=== PATIENT | female | born 1950 | race Asian ===

== ENCOUNTER 2017-07-12 13:33 | Inpatient (IN) | payer MEDICARE, MEDICAID, OTHER ==
[2017-07-12 15:26] LABS: ADD MAN DIFF? NO
[2017-07-12 15:30] LABS: WHITE BLOOD COUNT 17.6 10^3/ul (4.8-10.8)
[2017-07-12 15:30] LABS: ABNORMAL IP MESSAGE 1; BASOPHILS % 0.2 % (0.0-2.0); EOSINOPHILS # 0.1 10^3/ul (0.0-0.5); EOSINOPHILS % 0.5 % (0.0-7.0); HEMATOCRIT 37.3 % (37.0-47.0); HEMOGLOBIN 12.4 g/dl (12.0-16.0); LYMPHOCYTES # 0.7 10^3/ul (0.8-2.9); MEAN CORPUSCULAR HEMOGLOBIN 32.1 pg (29.0-33.0); MEAN CORPUSCULAR HGB CONC 33.2 g/dl (32.0-37.0); MEAN CORPUSCULAR VOLUME 96.6 fl (82.0-101.0); MEAN PLATELET VOLUME 9.7 fl (7.4-10.4); MONOCYTE # 1.6 10^3/ul (0.3-0.9); MONOCYTES % 9.1 % (0.0-11.0); NEUTROPHIL # 15.1 10^3/ul (1.6-7.5); NEUTROPHILS % 85.8 % (39.0-77.0); PLATELET COUNT 227 10^3/UL (140-415); RED BLOOD COUNT 3.86 10^6/ul (4.20-5.40); RED CELL DISTRIBUTION WIDTH 14.2 % (11.5-14.5)
[2017-07-12 15:39] LABS: POSITIVE DIFF @See below
[2017-07-12 15:50] LABS: ANION GAP 17 (8-16); BLOOD UREA NITROGEN 36 mg/dl (7-20); CALCIUM 9.5 mg/dl (8.4-10.2); CARBON DIOXIDE 34 mmol/L (21-31); CHLORIDE 90 mmol/L (97-110); CREATININE 6.31 mg/dl (0.44-1.00); GLUCOSE 121 mg/dl (70-220); SODIUM 135 mmol/L (135-144)
[2017-07-12 15:52] LABS: POTASSIUM 6.1 mmol/L (3.5-5.1)
[2017-07-12] MEDS: ALBUTEROL 0.083% (NEB) 2.5 MG/3 ML AMP HHN (15:54)
[2017-07-12 16:00] LABS: TROPONIN-I 0.024 ng/ml (0.00-0.12)
[2017-07-12] MEDS: ONDANSETRON 4 MG INJ IV (16:19)
[2017-07-12] MEDS: DEXTROSE 50% 50 ML SYRINGE IV (16:26)
[2017-07-12] MEDS: INSULIN REGULAR, HUMAN 100 UNIT/1 ML 3ML VIAL IVP (16:36)
[2017-07-12 17:47] LABS: ANION GAP 21 (8-16); BLOOD UREA NITROGEN 39 mg/dl (7-20); CALCIUM 9.6 mg/dl (8.4-10.2); CARBON DIOXIDE 27 mmol/L (21-31); CHLORIDE 91 mmol/L (97-110); CREATININE 6.59 mg/dl (0.44-1.00); GLUCOSE 170 mg/dl (70-220); POTASSIUM 5.9 mmol/L (3.5-5.1); SODIUM 133 mmol/L (135-144)
[2017-07-12] MEDS ORDERED: NACL 0.9% 3 ML SYG IV (23:30)
[2017-07-12] MEDS ORDERED: BISACODYL (EC) 5 MG TAB PO (23:30)
[2017-07-12] MEDS ORDERED: DOCUSATE SODIUM 100 MG CAP PO ×2 (23:30)
[2017-07-12] MEDS ORDERED: ACETAMINOPHEN 325 MG TAB PO (23:30)
[2017-07-13] MEDS: NA POLYST SULFON 15 GM/60 ML BTL PO ×2 (00:24→05:43)
[2017-07-13] MEDS: ONDANSETRON 4 MG INJ IV (00:51)
[2017-07-13] MEDS: ALBUTEROL 0.083% (NEB) 2.5 MG/3 ML AMP HHN ×4 (01:34→19:17)
[2017-07-13 02:46] LABS: HEPATITIS B SURFACE ANTIGEN NEGATIVE (NEGATIVE)
[2017-07-13] MEDS: PANTOPRAZOLE (EC) 40 MG TAB PO ×2 (05:43→18:00)
[2017-07-13 07:38] LABS: ANION GAP 18 (8-16); BLOOD UREA NITROGEN 51 mg/dl (7-20); CALCIUM 9.8 mg/dl (8.4-10.2); CARBON DIOXIDE 32 mmol/L (21-31); CHLORIDE 90 mmol/L (97-110); CREATININE 8.82 mg/dl (0.44-1.00); GLUCOSE 135 mg/dl (70-220); POTASSIUM 5.4 mmol/L (3.5-5.1); SODIUM 135 mmol/L (135-144)
[2017-07-13] MEDS: FOLIC ACID 1 MG TAB PO (09:00)
[2017-07-13] MEDS: METOPROLOL (XL) 25 MG TAB PO (09:00)
[2017-07-13] MEDS: CALCIUM ACETATE 667 MG CAP PO ×3 (09:00→21:02)
[2017-07-13] MEDS: ASPIRIN (EC) 81 MG TAB PO (09:00)
[2017-07-13] MEDS: FAMOTIDINE 20 MG TAB PO (09:00)
[2017-07-13] MEDS: LORATADINE 10 MG TAB PO (09:00)
[2017-07-13] MEDS: AZITHROMYCIN 250 MG in SOD CHLORIDE 0.9% 250 ML IVPB (15:19)
[2017-07-13 16:23] LABS: LIPASE 275 U/L (23-300)
[2017-07-13 16:24] LABS: ALANINE AMINOTRANSFERASE 22 IU/L (13-69); ALBUMIN 4.3 g/dl (3.3-4.9); ALKALINE PHOSPHATASE 121 IU/L (42-121); ASPARTATE AMINO TRANSFERASE 32 IU/L (15-46); BILIRUBIN,INDIRECT 0.3 mg/dl (0-1.1); BILIRUBIN,TOTAL 0.3 mg/dl (0.2-1.3); TOTAL PROTEIN 8.4 g/dl (6.1-8.1)
[2017-07-13] MEDS: ACCU-CHEK XX (18:00)
[2017-07-13] MEDS: INSULIN DETEMIR [LEVEMIR] 3ML CART SC (21:01)
[2017-07-13] MEDS: ACETAMINOPHEN 325 MG TAB PO (21:02)
[2017-07-14] MEDS: ACCU-CHEK XX ×5 (00:53→17:35)
[2017-07-14] MEDS: ALBUTEROL 0.083% (NEB) 2.5 MG/3 ML AMP HHN ×4 (01:22→19:35)
[2017-07-14] MEDS: PANTOPRAZOLE (EC) 40 MG TAB PO ×2 (06:45→17:34)
[2017-07-14 06:52] LABS: ADD MAN DIFF? NO
[2017-07-14 07:13] LABS: WHITE BLOOD COUNT 12.9 10^3/ul (4.8-10.8)
[2017-07-14 07:13] LABS: ABNORMAL IP MESSAGE 1; BASOPHILS % 0.2 % (0.0-2.0); EOSINOPHILS # 0.1 10^3/ul (0.0-0.5); EOSINOPHILS % 0.5 % (0.0-7.0); HEMOGLOBIN 11.8 g/dl (12.0-16.0); LYMPHOCYTES # 0.9 10^3/ul (0.8-2.9); LYMPHOCYTES % 7.2 % (15.0-51.0); MEAN CORPUSCULAR HGB CONC 31.9 g/dl (32.0-37.0); MEAN CORPUSCULAR VOLUME 100.3 fl (82.0-101.0); MEAN PLATELET VOLUME 10.1 fl (7.4-10.4); MONOCYTE # 1.7 10^3/ul (0.3-0.9); MONOCYTES % 13.4 % (0.0-11.0); NEUTROPHIL # 10.1 10^3/ul (1.6-7.5); NEUTROPHILS % 78.2 % (39.0-77.0); PLATELET COUNT 202 10^3/UL (140-415); RED BLOOD COUNT 3.69 10^6/ul (4.20-5.40); RED CELL DISTRIBUTION WIDTH 14.2 % (11.5-14.5)
[2017-07-14 07:19] LABS: POSITIVE DIFF @See below
[2017-07-14 07:21] LABS: MAGNESIUM 2.1 mg/dl (1.7-2.5)
[2017-07-14 07:21] LABS: PHOSPHORUS 5.6 mg/dl (2.5-4.9)
[2017-07-14 07:39] LABS: LACTIC ACID 1.8 mmol/L (0.5-2.0)
[2017-07-14 07:45] LABS: ANION GAP 24 (8-16); BLOOD UREA NITROGEN 33 mg/dl (7-20); CALCIUM 10.3 mg/dl (8.4-10.2); CARBON DIOXIDE 32 mmol/L (21-31); CHLORIDE 97 mmol/L (97-110); CREATININE 6.77 mg/dl (0.44-1.00); GLUCOSE 127 mg/dl (70-220); POTASSIUM 5.2 mmol/L (3.5-5.1); SODIUM 148 mmol/L (135-144)
[2017-07-14] MEDS: ACETAMINOPHEN 325 MG TAB PO (08:02)
[2017-07-14] MEDS: FAMOTIDINE 20 MG TAB PO (08:03)
[2017-07-14] MEDS: CALCIUM ACETATE 667 MG CAP PO ×3 (08:03→20:40)
[2017-07-14] MEDS: FOLIC ACID 1 MG TAB PO (08:03)
[2017-07-14] MEDS: ASPIRIN (EC) 81 MG TAB PO (08:03)
[2017-07-14] MEDS: LORATADINE 10 MG TAB PO (08:03)
[2017-07-14] MEDS: METOPROLOL (XL) 25 MG TAB PO (08:05)
[2017-07-14 10:03] LABS: HEMOGLOBIN A1C 5.5 % (0-5.9)
[2017-07-14] MEDS: AZITHROMYCIN 250 MG in SOD CHLORIDE 0.9% 250 ML IVPB (14:40)
[2017-07-14] MEDS: INSULIN DETEMIR [LEVEMIR] 3ML CART SC (20:49)
[2017-07-15] MEDS: ALBUTEROL 0.083% (NEB) 2.5 MG/3 ML AMP HHN ×4 (01:44→20:00)
[2017-07-15] MEDS: ACCU-CHEK XX ×4 (06:00→17:16)
[2017-07-15] MEDS: PANTOPRAZOLE (EC) 40 MG TAB PO ×2 (06:13→17:16)
[2017-07-15] MEDS: METOPROLOL (XL) 25 MG TAB PO (08:09)
[2017-07-15] MEDS: CALCIUM ACETATE 667 MG CAP PO ×3 (08:10→21:35)
[2017-07-15] MEDS: ASPIRIN (EC) 81 MG TAB PO (08:10)
[2017-07-15] MEDS: LORATADINE 10 MG TAB PO (08:10)
[2017-07-15] MEDS: FAMOTIDINE 20 MG TAB PO (08:10)
[2017-07-15] MEDS: FOLIC ACID 1 MG TAB PO (08:10)
[2017-07-15] MEDS: AZITHROMYCIN 250 MG in SOD CHLORIDE 0.9% 250 ML IVPB (13:42)
[2017-07-15] MEDS: ACETAMINOPHEN 325 MG TAB PO (18:03)
[2017-07-15] MEDS: INSULIN DETEMIR [LEVEMIR] 3ML CART SC (21:48)
[2017-07-16] MEDS: ALBUTEROL 0.083% (NEB) 2.5 MG/3 ML AMP HHN ×4 (02:09→21:30)
[2017-07-16] MEDS: PANTOPRAZOLE (EC) 40 MG TAB PO ×2 (05:54→18:02)
[2017-07-16] MEDS: ACCU-CHEK XX ×4 (05:56→17:35)
[2017-07-16 07:19] LABS: ADD MAN DIFF? NO
[2017-07-16 07:29] LABS: ABNORMAL IP MESSAGE 1; BASOPHIL # 0.1 10^3/ul (0.0-0.1); BASOPHILS % 0.3 % (0.0-2.0); EOSINOPHILS # 0.2 10^3/ul (0.0-0.5); EOSINOPHILS % 1.2 % (0.0-7.0); HEMATOCRIT 31.4 % (37.0-47.0); HEMOGLOBIN 10.3 g/dl (12.0-16.0); LYMPHOCYTES % 6.9 % (15.0-51.0); MEAN CORPUSCULAR HEMOGLOBIN 32.2 pg (29.0-33.0); MEAN CORPUSCULAR HGB CONC 32.8 g/dl (32.0-37.0); MEAN CORPUSCULAR VOLUME 98.1 fl (82.0-101.0); MEAN PLATELET VOLUME 10.3 fl (7.4-10.4); MONOCYTES % 13.6 % (0.0-11.0); NEUTROPHIL # 11.6 10^3/ul (1.6-7.5); NEUTROPHILS % 77.4 % (39.0-77.0); PLATELET COUNT 216 10^3/UL (140-415); RED CELL DISTRIBUTION WIDTH 13.9 % (11.5-14.5)
[2017-07-16 07:38] LABS: POSITIVE DIFF @See below
[2017-07-16 07:54] LABS: ALANINE AMINOTRANSFERASE 20 IU/L (13-69); ALBUMIN 3.8 g/dl (3.3-4.9); ALBUMIN/GLOBULIN RATIO 0.84; ALKALINE PHOSPHATASE 105 IU/L (42-121); ANION GAP 20 (8-16); ASPARTATE AMINO TRANSFERASE 37 IU/L (15-46); BILIRUBIN,INDIRECT 0.1 mg/dl (0-1.1); BILIRUBIN,TOTAL 0.1 mg/dl (0.2-1.3); BLOOD UREA NITROGEN 43 mg/dl (7-20); CALCIUM 9.5 mg/dl (8.4-10.2); CARBON DIOXIDE 29 mmol/L (21-31); CHLORIDE 92 mmol/L (97-110); CREATININE 7.16 mg/dl (0.44-1.00); GLUCOSE 94 mg/dl (70-220); POTASSIUM 4.8 mmol/L (3.5-5.1); SODIUM 136 mmol/L (135-144); TOTAL PROTEIN 8.3 g/dl (6.1-8.1)
[2017-07-16] MEDS: CALCIUM ACETATE 667 MG CAP PO ×3 (09:26→21:56)
[2017-07-16] MEDS: METOPROLOL (XL) 25 MG TAB PO (09:27)
[2017-07-16] MEDS: FOLIC ACID 1 MG TAB PO (09:30)
[2017-07-16] MEDS: FAMOTIDINE 20 MG TAB PO (09:30)
[2017-07-16] MEDS: ASPIRIN (EC) 81 MG TAB PO (09:30)
[2017-07-16] MEDS: LORATADINE 10 MG TAB PO (10:34)
[2017-07-16] MEDS: AZITHROMYCIN 250 MG in SOD CHLORIDE 0.9% 250 ML IVPB (15:06)
[2017-07-16] MEDS ORDERED: VANCOMYCIN IV PER PHARMACY XX (17:00)
[2017-07-16] MEDS ORDERED: AMIKACIN IV PER PHARMACY XX (17:00)
[2017-07-16] MEDS ORDERED: SOD CHLORIDE 0.9% 1,000 ML IV (17:33)
[2017-07-16] MEDS ORDERED: SODIUM CHLORIDE 0.9% 1L BAG IV (18:00)
[2017-07-16] MEDS ORDERED: ALBUMIN HUMAN 25% 50 ML IV (18:00)
[2017-07-16] MEDS: AMIKACIN 500 MG in DEXTROSE 5% 100 ML IVPB (18:30)
[2017-07-16] MEDS: VANCOMYCIN 1.75 GM in D5W 500 ML IVPB (19:00)
[2017-07-16] MEDS: INSULIN DETEMIR [LEVEMIR] 3ML CART SC (21:48)
[2017-07-17] MEDS: ALBUTEROL 0.083% (NEB) 2.5 MG/3 ML AMP HHN ×4 (03:31→20:17)
[2017-07-17] MEDS: PANTOPRAZOLE (EC) 40 MG TAB PO ×2 (05:33→18:00)
[2017-07-17] MEDS: ACCU-CHEK XX ×4 (08:10→18:00)
[2017-07-17 08:54] LABS: ADD MAN DIFF? NO
[2017-07-17] MEDS: LORATADINE 10 MG TAB PO (08:57)
[2017-07-17] MEDS: FOLIC ACID 1 MG TAB PO (08:57)
[2017-07-17] MEDS: METOPROLOL (XL) 25 MG TAB PO ×2 (08:57→09:00)
[2017-07-17] MEDS: CALCIUM ACETATE 667 MG CAP PO ×3 (08:57→21:45)
[2017-07-17] MEDS: ASPIRIN (EC) 81 MG TAB PO (08:57)
[2017-07-17] MEDS: FAMOTIDINE 20 MG TAB PO (08:57)
[2017-07-17 09:16] LABS: ABNORMAL IP MESSAGE 1; BASOPHILS % 0.3 % (0.0-2.0); EOSINOPHILS # 0.4 10^3/ul (0.0-0.5); HEMATOCRIT 32.6 % (37.0-47.0); HEMOGLOBIN 10.4 g/dl (12.0-16.0); LYMPHOCYTES # 1.3 10^3/ul (0.8-2.9); LYMPHOCYTES % 10.9 % (15.0-51.0); MEAN CORPUSCULAR HEMOGLOBIN 31.2 pg (29.0-33.0); MEAN CORPUSCULAR HGB CONC 31.9 g/dl (32.0-37.0); MEAN CORPUSCULAR VOLUME 97.9 fl (82.0-101.0); MEAN PLATELET VOLUME 10.2 fl (7.4-10.4); MONOCYTE # 1.7 10^3/ul (0.3-0.9); MONOCYTES % 14.4 % (0.0-11.0); NEUTROPHIL # 8.5 10^3/ul (1.6-7.5); NEUTROPHILS % 70.9 % (39.0-77.0); NUCLEATED RED BLOOD CELLS # 0.1 10^3/ul (0.0-0.0); PLATELET COUNT 211 10^3/UL (140-415); RED BLOOD COUNT 3.33 10^6/ul (4.20-5.40); RED CELL DISTRIBUTION WIDTH 13.7 % (11.5-14.5)
[2017-07-17 09:21] LABS: POSITIVE DIFF @See below
[2017-07-17 12:41] LABS: ANION GAP 21 (8-16); BLOOD UREA NITROGEN 68 mg/dl (7-20); CALCIUM 9.2 mg/dl (8.4-10.2); CARBON DIOXIDE 25 mmol/L (21-31); CHLORIDE 88 mmol/L (97-110); CREATININE 9.44 mg/dl (0.44-1.00); GLUCOSE 135 mg/dl (70-220); MAGNESIUM 1.8 mg/dl (1.7-2.5); POTASSIUM 5.2 mmol/L (3.5-5.1); SODIUM 129 mmol/L (135-144)
[2017-07-17 12:41] LABS: PHOSPHORUS 4.3 mg/dl (2.5-4.9)
[2017-07-17] MEDS: AZITHROMYCIN 250 MG in SOD CHLORIDE 0.9% 250 ML IVPB (16:01)
[2017-07-17] MEDS: AMIKACIN 350 MG in DEXTROSE 5% 100 ML IVPB (18:58)
[2017-07-17] MEDS: INSULIN DETEMIR [LEVEMIR] 3ML CART SC (20:56)
[2017-07-18] MEDS: ALBUTEROL 0.083% (NEB) 2.5 MG/3 ML AMP HHN ×4 (02:15→19:20)
[2017-07-18] MEDS: ACCU-CHEK XX ×5 (06:00→23:42)
[2017-07-18] MEDS: PANTOPRAZOLE (EC) 40 MG TAB PO ×2 (06:09→17:54)
[2017-07-18 08:12] LABS: ADD MAN DIFF? NO
[2017-07-18 08:14] LABS: WHITE BLOOD COUNT 10.3 10^3/ul (4.8-10.8)
[2017-07-18 08:14] LABS: ABNORMAL IP MESSAGE 1; BASOPHIL # 0.1 10^3/ul (0.0-0.1); BASOPHILS % 0.5 % (0.0-2.0); EOSINOPHILS # 0.4 10^3/ul (0.0-0.5); EOSINOPHILS % 4.1 % (0.0-7.0); HEMATOCRIT 33.8 % (37.0-47.0); HEMOGLOBIN 10.7 g/dl (12.0-16.0); LYMPHOCYTES % 9.4 % (15.0-51.0); MEAN CORPUSCULAR HEMOGLOBIN 31.4 pg (29.0-33.0); MEAN CORPUSCULAR HGB CONC 31.7 g/dl (32.0-37.0); MEAN CORPUSCULAR VOLUME 99.1 fl (82.0-101.0); MEAN PLATELET VOLUME 9.9 fl (7.4-10.4); MONOCYTE # 1.6 10^3/ul (0.3-0.9); MONOCYTES % 15.8 % (0.0-11.0); NEUTROPHIL # 7.2 10^3/ul (1.6-7.5); NEUTROPHILS % 69.6 % (39.0-77.0); PLATELET COUNT 259 10^3/UL (140-415); RED BLOOD COUNT 3.41 10^6/ul (4.20-5.40); RED CELL DISTRIBUTION WIDTH 13.8 % (11.5-14.5)
[2017-07-18 08:25] LABS: POSITIVE DIFF @See below
[2017-07-18 08:45] LABS: ANION GAP 19 (8-16); BLOOD UREA NITROGEN 47 mg/dl (7-20); CALCIUM 9.2 mg/dl (8.4-10.2); CARBON DIOXIDE 31 mmol/L (21-31); CHLORIDE 94 mmol/L (97-110); GLUCOSE 85 mg/dl (70-220); POTASSIUM 5.2 mmol/L (3.5-5.1); SODIUM 139 mmol/L (135-144)
[2017-07-18 08:49] LABS: VANCOMYCIN,RANDOM 15.3 ug/ml
[2017-07-18] MEDS: METOPROLOL (XL) 25 MG TAB PO (09:10)
[2017-07-18] MEDS: CALCIUM ACETATE 667 MG CAP PO ×3 (09:10→17:55)
[2017-07-18] MEDS: FAMOTIDINE 20 MG TAB PO (09:10)
[2017-07-18] MEDS: ASPIRIN (EC) 81 MG TAB PO (09:10)
[2017-07-18] MEDS: LORATADINE 10 MG TAB PO (09:10)
[2017-07-18] MEDS: FOLIC ACID 1 MG TAB PO (09:11)
[2017-07-18] MEDS: NA POLYST SULFON 15 GM/60 ML BTL PO (11:42)
[2017-07-18] MEDS ORDERED: GLUCOSE GEL 15 GRAM TUBE BUCCAL (12:30)
[2017-07-18] MEDS ORDERED: GLUCAGON 1 MG INJ IM (12:30)
[2017-07-18] MEDS ORDERED: GLUCOSE GEL 15 GRAM TUBE PO ×2 (12:30)
[2017-07-18] MEDS ORDERED: DEXTROSE 50% 50 ML SYRINGE IV ×2 (12:30)
[2017-07-18] MEDS: VANCOMYCIN 1 GM 250 ML IVPB (17:54)
[2017-07-18] MEDS ORDERED: SODIUM CHLORIDE 0.9% 1L BAG IV (18:00)
[2017-07-18] MEDS ORDERED: ALBUMIN HUMAN 25% 50 ML IV (18:00)
[2017-07-18] MEDS: INSULIN DETEMIR [LEVEMIR] 3ML CART SC (21:15)
[2017-07-19] MEDS: ALBUTEROL 0.083% (NEB) 2.5 MG/3 ML AMP HHN ×3 (01:58→13:24)
[2017-07-19] MEDS: PANTOPRAZOLE (EC) 40 MG TAB PO (06:10)
[2017-07-19] MEDS: ACCU-CHEK XX ×2 (06:13→12:13)
[2017-07-19 07:48] LABS: ADD MAN DIFF? NO
[2017-07-19 07:52] LABS: BASOPHIL # 0.1 10^3/ul (0.0-0.1); BASOPHILS % 0.8 % (0.0-2.0); EOSINOPHILS # 0.5 10^3/ul (0.0-0.5); EOSINOPHILS % 6.9 % (0.0-7.0); HEMATOCRIT 33.5 % (37.0-47.0); HEMOGLOBIN 10.9 g/dl (12.0-16.0); LYMPHOCYTES # 1.1 10^3/ul (0.8-2.9); LYMPHOCYTES % 14.6 % (15.0-51.0); MEAN CORPUSCULAR HEMOGLOBIN 32.2 pg (29.0-33.0); MEAN CORPUSCULAR HGB CONC 32.5 g/dl (32.0-37.0); MEAN CORPUSCULAR VOLUME 98.8 fl (82.0-101.0); MEAN PLATELET VOLUME 10.8 fl (7.4-10.4); MONOCYTE # 1.2 10^3/ul (0.3-0.9); MONOCYTES % 15.8 % (0.0-11.0); NEUTROPHIL # 4.5 10^3/ul (1.6-7.5); NEUTROPHILS % 61.4 % (39.0-77.0); NUCLEATED RED BLOOD CELLS% 0.4 /100WBC (0.0-0.0); RED BLOOD COUNT 3.39 10^6/ul (4.20-5.40); RED CELL DISTRIBUTION WIDTH 13.7 % (11.5-14.5)
[2017-07-19 07:52] LABS: WHITE BLOOD COUNT 7.4 10^3/ul (4.8-10.8)
[2017-07-19 07:59] LABS: PLATELET COUNT 193 10^3/UL (140-415); POSITIVE DIFF @See below
[2017-07-19 08:09] LABS: ANION GAP 21 (8-16); BLOOD UREA NITROGEN 67 mg/dl (7-20); CALCIUM 9.2 mg/dl (8.4-10.2); CARBON DIOXIDE 26 mmol/L (21-31); CHLORIDE 93 mmol/L (97-110); GLUCOSE 76 mg/dl (70-220); POTASSIUM 4.9 mmol/L (3.5-5.1); SODIUM 135 mmol/L (135-144)
[2017-07-19] MEDS: FAMOTIDINE 20 MG TAB PO (08:23)
[2017-07-19] MEDS: LORATADINE 10 MG TAB PO (08:23)
[2017-07-19] MEDS: FOLIC ACID 1 MG TAB PO (08:23)
[2017-07-19] MEDS: ASPIRIN (EC) 81 MG TAB PO (08:23)
[2017-07-19] MEDS: METOPROLOL (XL) 25 MG TAB PO (08:23)
[2017-07-19] MEDS: CALCIUM ACETATE 667 MG CAP PO ×2 (08:28→12:13)
[2017-07-19 14:04] LABS: PHOSPHORUS 5.2 mg/dl (2.5-4.9)
[2017-07-19 14:04] LABS: MAGNESIUM 2.2 mg/dl (1.7-2.5)
[2017-07-19] MEDS: AMIKACIN 350 MG in DEXTROSE 5% 100 ML IVPB (15:22)
== END 2017-07-19 17:30 | disposition home or self-care (01) | DRG 640 ==
LOC: TEL 22:26 → E/R 13:33 → TEL 18:05
PROC: 5A1D70Z Performance of Urinary Filtration, Intermittent, Less than 6 Hours Per Day (ICD-10-PCS; principal; 2017-07-13)
DX: E87.5 Hyperkalemia (principal); N18.6 End stage renal disease; J18.9 Pneumonia, unspecified organism; I12.0 Hypertensive chronic kidney disease with stage 5 chronic kidney disease or end stage renal disease; R65.10 Systemic inflammatory response syndrome (SIRS) of non-infectious origin without acute organ dysfunction; E11.22 Type 2 diabetes mellitus with diabetic chronic kidney disease; J21.9 Acute bronchiolitis, unspecified; Z99.2 Dependence on renal dialysis; Z95.0 Presence of cardiac pacemaker
CPT/HCPCS: 36415; 71045; 74176; 80048; 80053; 80076; 80202; 82962; 83036; 83605; 83690; 83735; 84100; 84484; 85025; 87040; 87340; 90935; 93005; 94640; 94644; 94664; 96374; 96375; 99285-25

== ENCOUNTER 2017-08-28 11:57 | Emergency (ER) | payer MEDICARE, MEDICAID | END 2017-08-28 12:26 | disposition home or self-care (01) | LOC: E/R 11:57 | DX: T82.838A Hemorrhage due to vascular prosthetic devices, implants and grafts, initial encounter (principal); N18.6 End stage renal disease; I12.0 Hypertensive chronic kidney disease with stage 5 chronic kidney disease or end stage renal disease; Y82.8 Other medical devices associated with adverse incidents; Z99.2 Dependence on renal dialysis; Z79.4 Long term (current) use of insulin; Z79.82 Long term (current) use of aspirin | CPT/HCPCS: 99282 ==

== ENCOUNTER 2017-09-02 02:09 | Emergency (ER) | payer MEDICARE, MEDICAID ==
[2017-09-02 05:25] LABS: ADD MAN DIFF? NO
[2017-09-02 05:26] LABS: BASOPHILS % 0.3 % (0.0-2.0); EOSINOPHILS # 0.1 10^3/ul (0.0-0.5); EOSINOPHILS % 0.6 % (0.0-7.0); HEMATOCRIT 39.3 % (37.0-47.0); HEMOGLOBIN 12.5 g/dl (12.0-16.0); LYMPHOCYTES # 1.5 10^3/ul (0.8-2.9); LYMPHOCYTES % 16.2 % (15.0-51.0); MEAN CORPUSCULAR HEMOGLOBIN 32.2 pg (29.0-33.0); MEAN CORPUSCULAR HGB CONC 31.8 g/dl (32.0-37.0); MEAN CORPUSCULAR VOLUME 101.3 fl (82.0-101.0); MEAN PLATELET VOLUME 10.4 fl (7.4-10.4); MONOCYTE # 0.9 10^3/ul (0.3-0.9); MONOCYTES % 9.9 % (0.0-11.0); NEUTROPHIL # 6.9 10^3/ul (1.6-7.5); NEUTROPHILS % 72.7 % (39.0-77.0); PLATELET COUNT 211 10^3/UL (140-415); RED BLOOD COUNT 3.88 10^6/ul (4.20-5.40); RED CELL DISTRIBUTION WIDTH 14.1 % (11.5-14.5)
[2017-09-02 05:26] LABS: WHITE BLOOD COUNT 9.5 10^3/ul (4.8-10.8)
[2017-09-02 07:03] LABS: ANION GAP 24 (8-16); BLOOD UREA NITROGEN 61 mg/dl (7-20); CALCIUM 10.2 mg/dl (8.4-10.2); CARBON DIOXIDE 31 mmol/L (21-31); CHLORIDE 92 mmol/L (97-110); CREATININE 8.08 mg/dl (0.44-1.00); POTASSIUM 5.1 mmol/L (3.5-5.1); SODIUM 142 mmol/L (135-144)
[2017-09-02 07:14] LABS: TROPONIN-I 0.036 ng/ml (0.00-0.12)
[2017-09-02 07:27] LABS: GLUCOSE 48 mg/dl (70-220)
[2017-09-02] MEDS: DEXTROSE 50% 50 ML SYRINGE IV (07:41)
== END 2017-09-02 08:31 | disposition home or self-care (01) ==
LOC: E/R 02:09
DX: R42 Dizziness and giddiness (principal); E11.649 Type 2 diabetes mellitus with hypoglycemia without coma; E11.22 Type 2 diabetes mellitus with diabetic chronic kidney disease; N18.6 End stage renal disease; D75.89 Other specified diseases of blood and blood-forming organs; I12.0 Hypertensive chronic kidney disease with stage 5 chronic kidney disease or end stage renal disease; Z79.4 Long term (current) use of insulin; Z79.82 Long term (current) use of aspirin; Z95.0 Presence of cardiac pacemaker
CPT/HCPCS: 36415; 71045; 80048; 82962; 84484; 85025; 93005; 99285-25

== ENCOUNTER 2017-09-03 09:32 | Inpatient (IN) | payer MEDICARE, OTHER, MEDICAID ==
[2017-09-03] MEDS ORDERED: DEXTROSE 50% 50 ML SYRINGE (09:37)
[2017-09-03 10:25] LABS: ADD MAN DIFF? NO
[2017-09-03 10:27] LABS: BASOPHILS % 0.4 % (0.0-2.0); EOSINOPHILS # 0.3 10^3/ul (0.0-0.5); EOSINOPHILS % 5.6 % (0.0-7.0); HEMATOCRIT 34.6 % (37.0-47.0); LYMPHOCYTES # 0.9 10^3/ul (0.8-2.9); LYMPHOCYTES % 18.9 % (15.0-51.0); MEAN CORPUSCULAR HEMOGLOBIN 31.9 pg (29.0-33.0); MEAN CORPUSCULAR HGB CONC 31.8 g/dl (32.0-37.0); MEAN CORPUSCULAR VOLUME 100.3 fl (82.0-101.0); MEAN PLATELET VOLUME 9.8 fl (7.4-10.4); MONOCYTE # 0.7 10^3/ul (0.3-0.9); MONOCYTES % 14.3 % (0.0-11.0); NEUTROPHILS % 60.6 % (39.0-77.0); PLATELET COUNT 197 10^3/UL (140-415); RED BLOOD COUNT 3.45 10^6/ul (4.20-5.40); RED CELL DISTRIBUTION WIDTH 14.2 % (11.5-14.5)
[2017-09-03 10:43] LABS: ANION GAP 21 (8-16); BLOOD UREA NITROGEN 80 mg/dl (7-20); CALCIUM 9.3 mg/dl (8.4-10.2); CARBON DIOXIDE 28 mmol/L (21-31); CHLORIDE 94 mmol/L (97-110); CREATININE 10.44 mg/dl (0.44-1.00); POTASSIUM 4.5 mmol/L (3.5-5.1); SODIUM 138 mmol/L (135-144)
[2017-09-03 10:45] LABS: GLUCOSE 26 mg/dl (70-220)
[2017-09-03] MEDS: DEXTROSE 50% 50 ML SYRINGE IV ×2 (10:46→14:14)
[2017-09-03] MEDS: DEXTROSE 10% 1,000 ML IV (11:05)
[2017-09-03] MEDS ORDERED: ALBUTEROL/IPRATROPIUM (NEB) 3 ML AMP NEB (12:00)
[2017-09-03] MEDS ORDERED: HYDROCODONE/APAP (5/325) TAB PO (12:00)
[2017-09-03] MEDS ORDERED: ACETAMINOPHEN 650MG/20.3ML CUP PO (12:00)
[2017-09-03] MEDS ORDERED: DOCUSATE SODIUM 100 MG CAP PO (12:00)
[2017-09-03] MEDS ORDERED: NACL 0.9% 3 ML SYG IV (12:00)
[2017-09-03] MEDS ORDERED: ONDANSETRON 4 MG INJ IV (12:00)
[2017-09-03 12:20] LABS: ALANINE AMINOTRANSFERASE 19 IU/L (13-69); ALBUMIN 3.9 g/dl (3.3-4.9); ALKALINE PHOSPHATASE 270 IU/L (42-121); ASPARTATE AMINO TRANSFERASE 35 IU/L (15-46)
[2017-09-03] MEDS: DEXTROSE 10%/0.2% NACL 1,000 ML IV (14:15)
[2017-09-03] MEDS: GLUCAGON 1 MG INJ IV (15:00)
[2017-09-03] MEDS: METHYLPREDNISOLONE 40 MG INJ IV (15:05)
[2017-09-03] MEDS: CALCIUM ACETATE 667 MG CAP PO (20:22)
[2017-09-03] MEDS: PANTOPRAZOLE (EC) 40 MG TAB PO (20:22)
[2017-09-03] MEDS: HEPARIN 5,000 UNIT/0.5 ML VIAL SC (20:23)
[2017-09-04] MEDS: DEXTROSE 5% 1,000 ML IV ×2 (00:52→00:55)
[2017-09-04] MEDS ORDERED: PANTOPRAZOLE 40 MG INJ IV (06:00)
[2017-09-04 06:06] LABS: ALANINE AMINOTRANSFERASE 18 IU/L (13-69); ALBUMIN 3.7 g/dl (3.3-4.9); ALBUMIN/GLOBULIN RATIO 0.94; ALKALINE PHOSPHATASE 189 IU/L (42-121); ANION GAP 22 (8-16); ASPARTATE AMINO TRANSFERASE 31 IU/L (15-46); BLOOD UREA NITROGEN 94 mg/dl (7-20); CALCIUM 9.4 mg/dl (8.4-10.2); CARBON DIOXIDE 22 mmol/L (21-31); CHLORIDE 92 mmol/L (97-110); CHOL/HDL RATIO 3.2 RATIO; CHOLESTEROL 141 mg/dl (100-200); CREATININE 11.83 mg/dl (0.44-1.00); GLUCOSE 163 mg/dl (70-220); HDL CHOLESTEROL 43 mg/dl (35-98); LDL CHOLESTEROL,CALCULATED 70 mg/dl; MAGNESIUM 2.3 mg/dl (1.7-2.5); SODIUM 129 mmol/L (135-144); TOTAL PROTEIN 7.6 g/dl (6.1-8.1); TRIGLYCERIDES 141 mg/dl (0-149)
[2017-09-04 06:08] LABS: POTASSIUM 6.5 mmol/L (3.5-5.1)
[2017-09-04 06:34] LABS: THYROID STIMULATING HORMONE 0.265 MIU/L (0.465-4.680)
[2017-09-04] MEDS: NA POLYST SULFON 15 GM/60 ML BTL PO (07:43)
[2017-09-04 08:06] LABS: FREE T4 (FREE THYROXINE) 1.16 ng/dl (0.78-2.44)
[2017-09-04] MEDS ORDERED: METOPROLOL (XL) 25 MG TAB PO (09:00)
[2017-09-04] MEDS: PANTOPRAZOLE (EC) 40 MG TAB PO ×2 (09:43→20:22)
[2017-09-04] MEDS: ASPIRIN (EC) 81 MG TAB PO (09:43)
[2017-09-04] MEDS: CALCIUM ACETATE 667 MG CAP PO ×3 (09:43→20:22)
[2017-09-04] MEDS: HEPARIN 5,000 UNIT/0.5 ML VIAL SC ×2 (09:48→20:24)
[2017-09-04 11:46] LABS: HEPATITIS B SURFACE ANTIBODY POSITIVE (NEGATIVE)
[2017-09-04 12:54] LABS: HEPATITIS B SURFACE ANTIGEN NEGATIVE (NEGATIVE)
[2017-09-04] MEDS ORDERED: DEXTROSE 50% 50 ML SYRINGE IV ×2 (14:00)
[2017-09-04] MEDS ORDERED: GLUCOSE GEL 15 GRAM TUBE BUCCAL (14:00)
[2017-09-04] MEDS ORDERED: GLUCOSE GEL 15 GRAM TUBE PO ×2 (14:00)
[2017-09-04] MEDS ORDERED: GLUCAGON 1 MG INJ IM (14:00)
[2017-09-04] MEDS: LINAGLIPTIN 5 MG TABLET PO (16:11)
[2017-09-04] MEDS: ACCU-CHEK XX ×2 (17:58→19:50)
[2017-09-04] MEDS: DIPHENHYDRAMINE 50 MG INJ IV (18:59)
[2017-09-04] MEDS ORDERED: DIPHENHYDRAMINE 50 MG INJ IM (19:00)
[2017-09-05 05:16] LABS: ADD MAN DIFF? NO
[2017-09-05 05:25] LABS: BASOPHILS % 0.7 % (0.0-2.0); EOSINOPHILS # 0.1 10^3/ul (0.0-0.5); HEMATOCRIT 32.8 % (37.0-47.0); HEMOGLOBIN 10.5 g/dl (12.0-16.0); LYMPHOCYTES # 1.5 10^3/ul (0.8-2.9); LYMPHOCYTES % 27.9 % (15.0-51.0); MEAN CORPUSCULAR HEMOGLOBIN 31.3 pg (29.0-33.0); MEAN CORPUSCULAR VOLUME 97.6 fl (82.0-101.0); MEAN PLATELET VOLUME 9.9 fl (7.4-10.4); MONOCYTE # 0.9 10^3/ul (0.3-0.9); MONOCYTES % 15.8 % (0.0-11.0); NEUTROPHIL # 2.9 10^3/ul (1.6-7.5); NEUTROPHILS % 53.2 % (39.0-77.0); PLATELET COUNT 204 10^3/UL (140-415); RED BLOOD COUNT 3.36 10^6/ul (4.20-5.40); RED CELL DISTRIBUTION WIDTH 13.7 % (11.5-14.5)
[2017-09-05 05:25] LABS: WHITE BLOOD COUNT 5.5 10^3/ul (4.8-10.8)
[2017-09-05 05:48] LABS: ANION GAP 18 (8-16); BLOOD UREA NITROGEN 72 mg/dl (7-20); CALCIUM 9.3 mg/dl (8.4-10.2); CARBON DIOXIDE 29 mmol/L (21-31); CHLORIDE 93 mmol/L (97-110); CREATININE 9.76 mg/dl (0.44-1.00); GLUCOSE 90 mg/dl (70-220); POTASSIUM 5.1 mmol/L (3.5-5.1); SODIUM 135 mmol/L (135-144)
[2017-09-05 06:15] LABS: PHOSPHORUS 4.1 mg/dl (2.5-4.9)
[2017-09-05 06:15] LABS: MAGNESIUM 2.2 mg/dl (1.7-2.5)
[2017-09-05] MEDS: ACCU-CHEK XX ×4 (07:56→14:05)
[2017-09-05] MEDS: CALCIUM ACETATE 667 MG CAP PO ×2 (07:57→12:12)
[2017-09-05] MEDS: ASPIRIN (EC) 81 MG TAB PO (07:58)
[2017-09-05] MEDS: PANTOPRAZOLE (EC) 40 MG TAB PO (07:58)
[2017-09-05] MEDS: LINAGLIPTIN 5 MG TABLET PO (07:58)
[2017-09-05] MEDS: HEPARIN 5,000 UNIT/0.5 ML VIAL SC (08:01)
== END 2017-09-05 16:00 | disposition home or self-care (01) | DRG 638 ==
LOC: MS2 09-04 16:30 → E/R 09:32 → ICU 11:43
PROVIDERS: Internal Medicine
DX: E11.649 Type 2 diabetes mellitus with hypoglycemia without coma (principal); I13.2 Hypertensive heart and chronic kidney disease with heart failure and with stage 5 chronic kidney disease, or end stage renal disease; E11.22 Type 2 diabetes mellitus with diabetic chronic kidney disease; N18.6 End stage renal disease; E78.00 Pure hypercholesterolemia, unspecified; I50.9 Heart failure, unspecified; I25.10 Atherosclerotic heart disease of native coronary artery without angina pectoris; E11.40 Type 2 diabetes mellitus with diabetic neuropathy, unspecified; E11.21 Type 2 diabetes mellitus with diabetic nephropathy; E11.319 Type 2 diabetes mellitus with unspecified diabetic retinopathy without macular edema; E87.5 Hyperkalemia; Z95.0 Presence of cardiac pacemaker; Z99.2 Dependence on renal dialysis; Z79.82 Long term (current) use of aspirin; Z79.4 Long term (current) use of insulin
CPT/HCPCS: 80048; 80053; 80061; 80076; 82533; 82962; 83735; 84100; 84439; 84443; 85025; 86706; 87081; 87340; 90935

== ENCOUNTER 2017-11-03 04:12 | Observation (INO) | payer MEDICARE, OTHER ==
[2017-11-03 06:03] LABS: ADD MAN DIFF? NO; BASOPHILS % 0.4 % (0.0-2.0); EOSINOPHILS # 0.3 10^3/ul (0.0-0.5); HEMATOCRIT 34.5 % (37.0-47.0); HEMOGLOBIN 10.9 g/dl (12.0-16.0); LYMPHOCYTES # 1.7 10^3/ul (0.8-2.9); LYMPHOCYTES % 20.4 % (15.0-51.0); MEAN CORPUSCULAR HEMOGLOBIN 31.6 pg (29.0-33.0); MEAN CORPUSCULAR HGB CONC 31.6 g/dl (32.0-37.0); MEAN PLATELET VOLUME 10.2 fl (7.4-10.4); MONOCYTE # 1.2 10^3/ul (0.3-0.9); NEUTROPHIL # 5.1 10^3/ul (1.6-7.5); NEUTROPHILS % 61.5 % (39.0-77.0); PLATELET COUNT 230 10^3/UL (140-415); RED BLOOD COUNT 3.45 10^6/ul (4.20-5.40)
[2017-11-03 06:03] LABS: WHITE BLOOD COUNT 8.2 10^3/ul (4.8-10.8)
[2017-11-03] MEDS: ONDANSETRON 4 MG INJ IV (06:08)
[2017-11-03] MEDS: morphine 2 MG INJ IV (06:08)
[2017-11-03 06:20] LABS: ANION GAP 20 (8-16); BLOOD UREA NITROGEN 89 mg/dl (7-20); CALCIUM 10.2 mg/dl (8.4-10.2); CARBON DIOXIDE 28 mmol/L (21-31); CHLORIDE 96 mmol/L (97-110); GLUCOSE 131 mg/dl (70-220); POTASSIUM 5.5 mmol/L (3.5-5.1); SODIUM 138 mmol/L (135-144)
[2017-11-03 06:22] LABS: PROTIME 12.2 Sec (11.9-14.9)
[2017-11-03 06:27] LABS: CREATININE 10.68 mg/dl (0.44-1.00)
[2017-11-03] MEDS ORDERED: ACETAMINOPHEN 325 MG TAB PO ×2 (06:30→11:00)
[2017-11-03] MEDS ORDERED: ONDANSETRON 4 MG INJ IV (06:30)
[2017-11-03] MEDS ORDERED: GLUCAGON 1 MG INJ IM (11:00)
[2017-11-03] MEDS ORDERED: GLUCOSE GEL 15 GRAM TUBE BUCCAL (11:00)
[2017-11-03] MEDS ORDERED: GLUCOSE GEL 15 GRAM TUBE PO ×2 (11:00)
[2017-11-03] MEDS ORDERED: DEXTROSE 50% 50 ML SYRINGE IV ×2 (11:00)
[2017-11-03] MEDS: DEXTROSE 5%-0.45% NACL 1,000 ML IV (11:55)
[2017-11-03] MEDS: NA POLYST SULFON 15 GM/60 ML BTL PO (11:56)
[2017-11-03] MEDS: INSULIN ASPART [NOVOLOG] 3 ML PEN SC ×3 (12:15→21:00)
[2017-11-03] MEDS: ALBUTEROL 0.083% (NEB) 2.5 MG/3 ML AMP HHN ×2 (13:00→20:47)
[2017-11-03] MEDS: hydrALAzine 20 MG INJ IV ×2 (13:14→18:20)
[2017-11-03] MEDS: NA POLYST SULFON 15 GM/60 ML BTL PR (15:46)
[2017-11-03 16:18] LABS: POTASSIUM 5.3 mmol/L (3.5-5.1)
[2017-11-04] MEDS: hydrALAzine 20 MG INJ IV ×4 (01:17→18:00)
[2017-11-04] MEDS: ALBUTEROL 0.083% (NEB) 2.5 MG/3 ML AMP HHN ×4 (01:18→20:45)
[2017-11-04] MEDS: ACCU-CHEK XX (02:00)
[2017-11-04 05:38] LABS: ADD MAN DIFF? NO
[2017-11-04 05:52] LABS: BASOPHILS % 0.4 % (0.0-2.0); EOSINOPHILS # 0.2 10^3/ul (0.0-0.5); EOSINOPHILS % 2.4 % (0.0-7.0); HEMATOCRIT 31.1 % (37.0-47.0); HEMOGLOBIN 10.1 g/dl (12.0-16.0); LYMPHOCYTES # 1.8 10^3/ul (0.8-2.9); LYMPHOCYTES % 21.4 % (15.0-51.0); MEAN CORPUSCULAR HEMOGLOBIN 31.8 pg (29.0-33.0); MEAN CORPUSCULAR HGB CONC 32.5 g/dl (32.0-37.0); MEAN CORPUSCULAR VOLUME 97.8 fl (82.0-101.0); MEAN PLATELET VOLUME 10.5 fl (7.4-10.4); MONOCYTE # 1.2 10^3/ul (0.3-0.9); MONOCYTES % 14.6 % (0.0-11.0); NEUTROPHILS % 60.7 % (39.0-77.0); PLATELET COUNT 223 10^3/UL (140-415); RED BLOOD COUNT 3.18 10^6/ul (4.20-5.40)
[2017-11-04 05:52] LABS: WHITE BLOOD COUNT 8.2 10^3/ul (4.8-10.8)
[2017-11-04 06:05] LABS: ANION GAP 22 (8-16); BLOOD UREA NITROGEN 97 mg/dl (7-20); CALCIUM 9.1 mg/dl (8.4-10.2); CARBON DIOXIDE 25 mmol/L (21-31); CHLORIDE 97 mmol/L (97-110); GLUCOSE 114 mg/dl (70-220); POTASSIUM 4.5 mmol/L (3.5-5.1); SODIUM 139 mmol/L (135-144)
[2017-11-04 06:40] LABS: CREATININE 12.45 mg/dl (0.44-1.00)
[2017-11-04] MEDS: INSULIN ASPART [NOVOLOG] 3 ML PEN SC ×4 (08:15→21:26)
[2017-11-04] MEDS: DEXTROSE 5%-0.45% NACL 1,000 ML IV (10:30)
[2017-11-05] MEDS: ALBUTEROL 0.083% (NEB) 2.5 MG/3 ML AMP HHN ×2 (01:01→07:43)
[2017-11-05] MEDS: ACCU-CHEK XX (02:00)
[2017-11-05 05:37] LABS: ADD MAN DIFF? NO
[2017-11-05 05:46] LABS: WHITE BLOOD COUNT 5.8 10^3/ul (4.8-10.8)
[2017-11-05 05:46] LABS: BASOPHILS % 0.3 % (0.0-2.0); EOSINOPHILS # 0.3 10^3/ul (0.0-0.5); EOSINOPHILS % 4.3 % (0.0-7.0); HEMATOCRIT 31.1 % (37.0-47.0); HEMOGLOBIN 9.9 g/dl (12.0-16.0); LYMPHOCYTES % 16.5 % (15.0-51.0); MEAN CORPUSCULAR HEMOGLOBIN 31.7 pg (29.0-33.0); MEAN CORPUSCULAR HGB CONC 31.8 g/dl (32.0-37.0); MEAN CORPUSCULAR VOLUME 99.7 fl (82.0-101.0); MONOCYTE # 1.2 10^3/ul (0.3-0.9); MONOCYTES % 20.7 % (0.0-11.0); NEUTROPHIL # 3.4 10^3/ul (1.6-7.5); NEUTROPHILS % 57.9 % (39.0-77.0); PLATELET COUNT 204 10^3/UL (140-415); RED BLOOD COUNT 3.12 10^6/ul (4.20-5.40); RED CELL DISTRIBUTION WIDTH 13.2 % (11.5-14.5)
[2017-11-05] MEDS: hydrALAzine 20 MG INJ IV ×3 (06:00→12:00)
[2017-11-05 06:11] LABS: ALANINE AMINOTRANSFERASE 20 IU/L (13-69); ALBUMIN 3.8 g/dl (3.3-4.9); ALBUMIN/GLOBULIN RATIO 1.02; ALKALINE PHOSPHATASE 149 IU/L (42-121); ANION GAP 16 (8-16); ASPARTATE AMINO TRANSFERASE 30 IU/L (15-46); BILIRUBIN,INDIRECT 0.1 mg/dl (0-1.1); BILIRUBIN,TOTAL 0.1 mg/dl (0.2-1.3); BLOOD UREA NITROGEN 57 mg/dl (7-20); CALCIUM 9.6 mg/dl (8.4-10.2); CARBON DIOXIDE 29 mmol/L (21-31); CHLORIDE 100 mmol/L (97-110); CREATININE 9.74 mg/dl (0.44-1.00); GLUCOSE 120 mg/dl (70-220); POTASSIUM 4.8 mmol/L (3.5-5.1); SODIUM 140 mmol/L (135-144); TOTAL PROTEIN 7.5 g/dl (6.1-8.1)
[2017-11-05] MEDS: INSULIN ASPART [NOVOLOG] 3 ML PEN SC ×2 (08:15→12:15)
== END 2017-11-05 14:00 | disposition home or self-care (01) ==
LOC: E/R 04:12 → MS2 06:26
DX: T82.838A Hemorrhage due to vascular prosthetic devices, implants and grafts, initial encounter (principal); Y84.1 Kidney dialysis as the cause of abnormal reaction of the patient, or of later complication, without mention of misadventure at the time of the procedure; I12.0 Hypertensive chronic kidney disease with stage 5 chronic kidney disease or end stage renal disease; N18.6 End stage renal disease; I50.9 Heart failure, unspecified; Z95.0 Presence of cardiac pacemaker; E11.9 Type 2 diabetes mellitus without complications; I25.10 Atherosclerotic heart disease of native coronary artery without angina pectoris; Z79.82 Long term (current) use of aspirin
CPT/HCPCS: 12001; 36415; 71045; 80048; 80053; 82962; 84132; 85025; 85610; 85730; 86850; 86900; 86901; 90935; 93005; 94640; 94664; 99217; 99285-25

== ENCOUNTER 2017-11-05 18:08 | Inpatient (IN) | payer MEDICARE, OTHER ==
[2017-11-05] MEDS ORDERED: ONDANSETRON 4 MG INJ IV (19:00)
[2017-11-05] MEDS ORDERED: ACETAMINOPHEN 325 MG TAB PO (19:00)
[2017-11-05 19:39] LABS: ADD MAN DIFF? NO
[2017-11-05 19:43] LABS: WHITE BLOOD COUNT 7.7 10^3/ul (4.8-10.8)
[2017-11-05 19:43] LABS: BASOPHILS % 0.3 % (0.0-2.0); EOSINOPHILS # 0.3 10^3/ul (0.0-0.5); EOSINOPHILS % 3.6 % (0.0-7.0); HEMATOCRIT 32.1 % (37.0-47.0); HEMOGLOBIN 10.2 g/dl (12.0-16.0); LYMPHOCYTES # 1.2 10^3/ul (0.8-2.9); MEAN CORPUSCULAR HEMOGLOBIN 32.1 pg (29.0-33.0); MEAN CORPUSCULAR HGB CONC 31.8 g/dl (32.0-37.0); MEAN CORPUSCULAR VOLUME 100.9 fl (82.0-101.0); MEAN PLATELET VOLUME 10.1 fl (7.4-10.4); MONOCYTE # 1.2 10^3/ul (0.3-0.9); MONOCYTES % 15.4 % (0.0-11.0); NEUTROPHIL # 5.1 10^3/ul (1.6-7.5); NEUTROPHILS % 65.3 % (39.0-77.0); PLATELET COUNT 221 10^3/UL (140-415); RED BLOOD COUNT 3.18 10^6/ul (4.20-5.40); RED CELL DISTRIBUTION WIDTH 13.1 % (11.5-14.5)
[2017-11-05 19:58] LABS: ANION GAP 19 (8-16); BLOOD UREA NITROGEN 67 mg/dl (7-20); CALCIUM 9.6 mg/dl (8.4-10.2); CARBON DIOXIDE 27 mmol/L (21-31); CHLORIDE 94 mmol/L (97-110); GLUCOSE 123 mg/dl (70-220); SODIUM 134 mmol/L (135-144)
[2017-11-05 20:02] LABS: INR 0.94; PROTIME 12.7 Sec (11.9-14.9)
[2017-11-05 20:03] LABS: PARTIAL THROMBOPLASTIN TIME 38.8 Sec (25.0-35.0)
[2017-11-05 20:08] LABS: POTASSIUM 5.5 mmol/L (3.5-5.1)
[2017-11-05 20:13] LABS: CREATININE 10.21 mg/dl (0.44-1.00)
[2017-11-05 20:14] LABS: TROPONIN-I 0.051 ng/ml (0.000-0.120)
[2017-11-05] MEDS: INSULIN ASPART [NOVOLOG] 3 ML PEN SC (21:30)
[2017-11-05] MEDS: DOCUSATE SODIUM 100 MG CAP PO (22:41)
[2017-11-06] MEDS: DEXTROSE 5%-0.45% NACL 1,000 ML IV (00:04)
[2017-11-06] MEDS: NA POLYST SULFON 15 GM/60 ML BTL PO (00:05)
[2017-11-06] MEDS: ACCU-CHEK XX (02:00)
[2017-11-06 05:51] LABS: ADD MAN DIFF? NO
[2017-11-06 05:58] LABS: BASOPHILS % 0.4 % (0.0-2.0); EOSINOPHILS # 0.3 10^3/ul (0.0-0.5); EOSINOPHILS % 3.9 % (0.0-7.0); HEMATOCRIT 31.3 % (37.0-47.0); HEMOGLOBIN 9.9 g/dl (12.0-16.0); LYMPHOCYTES % 14.4 % (15.0-51.0); MEAN CORPUSCULAR HEMOGLOBIN 31.9 pg (29.0-33.0); MEAN CORPUSCULAR HGB CONC 31.6 g/dl (32.0-37.0); MEAN PLATELET VOLUME 10.6 fl (7.4-10.4); MONOCYTE # 1.3 10^3/ul (0.3-0.9); MONOCYTES % 18.1 % (0.0-11.0); NEUTROPHIL # 4.5 10^3/ul (1.6-7.5); NEUTROPHILS % 62.6 % (39.0-77.0); PLATELET COUNT 205 10^3/UL (140-415)
[2017-11-06 05:58] LABS: WHITE BLOOD COUNT 7.2 10^3/ul (4.8-10.8)
[2017-11-06 06:31] LABS: ALANINE AMINOTRANSFERASE 15 IU/L (13-69); ALBUMIN 3.9 g/dl (3.3-4.9); ALKALINE PHOSPHATASE 141 IU/L (42-121); ANION GAP 18 (8-16); ASPARTATE AMINO TRANSFERASE 37 IU/L (15-46); BILIRUBIN,INDIRECT 0.4 mg/dl (0-1.1); BILIRUBIN,TOTAL 0.4 mg/dl (0.2-1.3); BLOOD UREA NITROGEN 75 mg/dl (7-20); CALCIUM 9.2 mg/dl (8.4-10.2); CARBON DIOXIDE 26 mmol/L (21-31); CHLORIDE 98 mmol/L (97-110); GLUCOSE 97 mg/dl (70-220); SODIUM 137 mmol/L (135-144); TOTAL PROTEIN 7.8 g/dl (6.1-8.1)
[2017-11-06 06:43] LABS: CREATININE 11.53 mg/dl (0.44-1.00)
[2017-11-06] MEDS ORDERED: LIDOCAINE 2% (SDV) 5 ML INJ (07:00)
[2017-11-06] MEDS ORDERED: PROPOFOL 200 MG INJ (07:00)
[2017-11-06] MEDS ORDERED: ROCURONIUM 50 MG INJ (07:00)
[2017-11-06] MEDS ORDERED: EPHEDrine SULFATE 50 MG/5 ML SYG (07:00)
[2017-11-06] MEDS: CALCIUM ACETATE 667 MG CAP PO ×3 (07:35→17:10)
[2017-11-06] MEDS: LINAGLIPTIN 5 MG TABLET PO (09:00)
[2017-11-06] MEDS: METOPROLOL (XL) 50 MG TAB PO (09:00)
[2017-11-06] MEDS: DOCUSATE SODIUM 100 MG CAP PO ×2 (09:00→21:05)
[2017-11-06] MEDS: FOLIC ACID 1 MG TAB PO (09:00)
[2017-11-06] MEDS: INSULIN ASPART [NOVOLOG] 3 ML PEN SC ×3 (09:05→21:00)
[2017-11-06] MEDS: DESMOPRESSIN 15 MCG in SOD CHLORIDE 0.9% 50 ML IVPB (09:06)
[2017-11-06] MEDS ORDERED: THROMBIN 5000 UNIT VIAL (09:11)
[2017-11-06] MEDS ORDERED: GELATIN SIZE 100 SPONGE (09:11)
[2017-11-06 09:17] LABS: ADD MAN DIFF? NO
[2017-11-06 09:22] LABS: WHITE BLOOD COUNT 9.8 10^3/ul (4.8-10.8)
[2017-11-06 09:22] LABS: BASOPHILS % 0.3 % (0.0-2.0); EOSINOPHILS # 0.2 10^3/ul (0.0-0.5); EOSINOPHILS % 2.3 % (0.0-7.0); HEMOGLOBIN 8.7 g/dl (12.0-16.0); LYMPHOCYTES # 1.5 10^3/ul (0.8-2.9); MEAN CORPUSCULAR HEMOGLOBIN 32.3 pg (29.0-33.0); MEAN CORPUSCULAR HGB CONC 32.2 g/dl (32.0-37.0); MEAN CORPUSCULAR VOLUME 100.4 fl (82.0-101.0); MEAN PLATELET VOLUME 10.3 fl (7.4-10.4); MONOCYTE # 1.3 10^3/ul (0.3-0.9); NEUTROPHIL # 6.7 10^3/ul (1.6-7.5); NEUTROPHILS % 68.8 % (39.0-77.0); PLATELET COUNT 200 10^3/UL (140-415); RED BLOOD COUNT 2.69 10^6/ul (4.20-5.40); RED CELL DISTRIBUTION WIDTH 12.8 % (11.5-14.5)
[2017-11-06] MEDS ORDERED: FENTAnyl 50 MCG/ML VIAL ×2 (09:34→11:59)
[2017-11-06] MEDS ORDERED: MIDAZOLAM 1 MG/ML 2 ML INJ (09:34)
[2017-11-06 09:59] LABS: IMMEDIATE SPIN CROSSMATCH 1 3
[2017-11-06] MEDS ORDERED: DIPHENHYDRAMINE 50 MG INJ (10:27)
[2017-11-06] MEDS ORDERED: PHENYLephrine 10 MG INJ (10:40)
[2017-11-06] MEDS ORDERED: PHENYLephrine (100 MCG/ML) 5ML SYG ×2 (10:41→11:43)
[2017-11-06] MEDS: BUPIVACAINE 0.25% (MPF) 30 ML INJ (10:52)
[2017-11-06] MEDS: LIDOCAINE 1% (MPF) 30 ML INJ (10:52)
[2017-11-06] MEDS: HEPARIN 1000 UNITS/NS 500 ML BAG IV (10:53)
[2017-11-06] MEDS ORDERED: IOHEXOL 300MG/ML 30 ML BTL (11:56)
[2017-11-06] MEDS: IOHEXOL 300MG/ML 30 ML BTL (12:00)
[2017-11-06] MEDS ORDERED: PHENYLephrine 20MG IN 250 ML 250 ML (12:58)
[2017-11-06] MEDS ORDERED: ONDANSETRON 4 MG INJ IV (13:00)
[2017-11-06] MEDS ORDERED: HYDROmorphONE 1 MG/5 ML IV SYRINGE IV (13:00)
[2017-11-06] MEDS: PHENYLephrine 20MG IN 250 ML 250 ML IV (13:19)
[2017-11-06] MEDS ORDERED: GLUCOSE GEL 15 GRAM TUBE BUCCAL (15:30)
[2017-11-06] MEDS ORDERED: GLUCAGON 1 MG INJ IM (15:30)
[2017-11-06] MEDS ORDERED: DEXTROSE 50% 50 ML SYRINGE IV ×2 (15:30)
[2017-11-06] MEDS ORDERED: GLUCOSE GEL 15 GRAM TUBE PO ×2 (15:30)
[2017-11-06 18:32] LABS: HEMATOCRIT 27.6 % (37.0-47.0); HEMOGLOBIN 8.8 g/dl (12.0-16.0)
[2017-11-07] MEDS: ACCU-CHEK XX (02:00)
[2017-11-07 06:06] LABS: ADD MAN DIFF? NO
[2017-11-07 06:07] LABS: WHITE BLOOD COUNT 11.4 10^3/ul (4.8-10.8)
[2017-11-07 06:07] LABS: BASOPHILS % 0.3 % (0.0-2.0); EOSINOPHILS # 0.1 10^3/ul (0.0-0.5); EOSINOPHILS % 0.5 % (0.0-7.0); HEMATOCRIT 23.7 % (37.0-47.0); HEMOGLOBIN 7.9 g/dl (12.0-16.0); LYMPHOCYTES # 0.8 10^3/ul (0.8-2.9); LYMPHOCYTES % 6.7 % (15.0-51.0); MEAN CORPUSCULAR HEMOGLOBIN 31.9 pg (29.0-33.0); MEAN CORPUSCULAR HGB CONC 33.3 g/dl (32.0-37.0); MEAN CORPUSCULAR VOLUME 95.6 fl (82.0-101.0); MEAN PLATELET VOLUME 10.8 fl (7.4-10.4); MONOCYTE # 1.3 10^3/ul (0.3-0.9); MONOCYTES % 11.4 % (0.0-11.0); NEUTROPHIL # 9.1 10^3/ul (1.6-7.5); NEUTROPHILS % 80.5 % (39.0-77.0); PLATELET COUNT 166 10^3/UL (140-415); RED BLOOD COUNT 2.48 10^6/ul (4.20-5.40); RED CELL DISTRIBUTION WIDTH 14.3 % (11.5-14.5)
[2017-11-07 06:57] LABS: MAGNESIUM 1.9 mg/dl (1.7-2.5)
[2017-11-07 06:57] LABS: PHOSPHORUS 6.3 mg/dl (2.5-4.9)
[2017-11-07 07:18] LABS: ANION GAP 20 (8-16); BLOOD UREA NITROGEN 83 mg/dl (7-20); CALCIUM 8.4 mg/dl (8.4-10.2); CARBON DIOXIDE 20 mmol/L (21-31); CHLORIDE 98 mmol/L (97-110); GLUCOSE 117 mg/dl (70-220); SODIUM 133 mmol/L (135-144)
[2017-11-07] MEDS: INSULIN ASPART [NOVOLOG] 3 ML PEN SC ×4 (07:30→20:39)
[2017-11-07 07:49] LABS: CREATININE 12.87 mg/dl (0.44-1.00)
[2017-11-07] MEDS: FOLIC ACID 1 MG TAB PO (08:41)
[2017-11-07] MEDS: LINAGLIPTIN 5 MG TABLET PO (08:41)
[2017-11-07] MEDS: DOCUSATE SODIUM 100 MG CAP PO ×2 (08:41→20:36)
[2017-11-07] MEDS: METOPROLOL (XL) 50 MG TAB PO (08:42)
[2017-11-07] MEDS: CALCIUM ACETATE 667 MG CAP PO ×3 (08:42→17:35)
[2017-11-07 11:50] LABS: HEMATOCRIT 26.5 % (37.0-47.0); HEMOGLOBIN 8.5 g/dl (12.0-16.0)
[2017-11-07] MEDS: ACETAMINOPHEN 325 MG TAB PO ×2 (14:01→20:36)
[2017-11-07] MEDS ORDERED: TOBRAMYCIN 80 MG INJ IM (19:00)
[2017-11-07] MEDS ORDERED: VANCOMYCIN IV PER PHARMACY XX (19:00)
[2017-11-07] MEDS ORDERED: TOBRAMYCIN 80 MG INJ IV (19:30)
[2017-11-07] MEDS: VANCOMYCIN 1 GM (PMX) 250 ML IVPB (19:58)
[2017-11-07] MEDS ORDERED: CEFTRIAXONE 1 GM/50 ML (PMX) 50 ML IVPB (21:00)
[2017-11-07] MEDS: TOBRAMYCIN 100 MG in SOD CHLORIDE 0.9% 50 ML IVPB (22:05)
[2017-11-07] MEDS: CEFTRIAXONE 1 GM/50 ML (PMX) 50 ML IVPB (22:40)
[2017-11-08] MEDS: ACCU-CHEK XX (02:00)
[2017-11-08 06:00] LABS: ADD MAN DIFF? NO
[2017-11-08 06:05] LABS: WHITE BLOOD COUNT 16.6 10^3/ul (4.8-10.8)
[2017-11-08 06:05] LABS: BASOPHILS % 0.2 % (0.0-2.0); EOSINOPHILS % 0.1 % (0.0-7.0); HEMATOCRIT 25.8 % (37.0-47.0); HEMOGLOBIN 8.4 g/dl (12.0-16.0); LYMPHOCYTES # 0.8 10^3/ul (0.8-2.9); LYMPHOCYTES % 4.6 % (15.0-51.0); MEAN CORPUSCULAR HEMOGLOBIN 32.3 pg (29.0-33.0); MEAN CORPUSCULAR HGB CONC 32.6 g/dl (32.0-37.0); MEAN CORPUSCULAR VOLUME 99.2 fl (82.0-101.0); MEAN PLATELET VOLUME 11.1 fl (7.4-10.4); MONOCYTE # 1.4 10^3/ul (0.3-0.9); MONOCYTES % 8.4 % (0.0-11.0); NEUTROPHIL # 14.2 10^3/ul (1.6-7.5); RED CELL DISTRIBUTION WIDTH 13.9 % (11.5-14.5)
[2017-11-08 06:37] LABS: ALANINE AMINOTRANSFERASE 16 IU/L (13-69); ALBUMIN 3.2 g/dl (3.3-4.9); ALBUMIN/GLOBULIN RATIO 0.91; ALKALINE PHOSPHATASE 74 IU/L (42-121); ANION GAP 19 (8-16); ASPARTATE AMINO TRANSFERASE 49 IU/L (15-46); BILIRUBIN,INDIRECT 0.1 mg/dl (0-1.1); BILIRUBIN,TOTAL 0.1 mg/dl (0.2-1.3); BLOOD UREA NITROGEN 69 mg/dl (7-20); CALCIUM 8.5 mg/dl (8.4-10.2); CARBON DIOXIDE 25 mmol/L (21-31); CHLORIDE 97 mmol/L (97-110); GLUCOSE 105 mg/dl (70-220); POTASSIUM 4.8 mmol/L (3.5-5.1); SODIUM 136 mmol/L (135-144); TOTAL PROTEIN 6.7 g/dl (6.1-8.1)
[2017-11-08 06:45] LABS: PLATELET COUNT 123 10^3/UL (140-415); POSITIVE DIFF @See below
[2017-11-08 06:49] LABS: CREATININE 10.77 mg/dl (0.44-1.00)
[2017-11-08] MEDS: INSULIN ASPART [NOVOLOG] 3 ML PEN SC ×4 (07:30→21:00)
[2017-11-08] MEDS: SOD CHLORIDE 0.9% 250 ML IV* (08:11)
[2017-11-08] MEDS: DOCUSATE SODIUM 100 MG CAP PO ×2 (08:52→21:00)
[2017-11-08] MEDS: CALCIUM ACETATE 667 MG CAP PO ×3 (08:52→17:36)
[2017-11-08] MEDS: FOLIC ACID 1 MG TAB PO (08:52)
[2017-11-08] MEDS: LINAGLIPTIN 5 MG TABLET PO (08:53)
[2017-11-08] MEDS: METOPROLOL (XL) 50 MG TAB PO (08:54)
[2017-11-08] MEDS: CEFTRIAXONE 1 GM/50 ML (PMX) 50 ML IVPB (22:22)
[2017-11-09] MEDS: ACCU-CHEK XX (02:00)
[2017-11-09 05:58] LABS: ADD MAN DIFF? NO
[2017-11-09 06:03] LABS: ABNORMAL IP MESSAGE 1; BASOPHILS % 0.1 % (0.0-2.0); EOSINOPHILS # 0.3 10^3/ul (0.0-0.5); EOSINOPHILS % 2.3 % (0.0-7.0); HEMATOCRIT 21.3 % (37.0-47.0); LYMPHOCYTES # 1.1 10^3/ul (0.8-2.9); LYMPHOCYTES % 9.6 % (15.0-51.0); MEAN CORPUSCULAR HEMOGLOBIN 31.3 pg (29.0-33.0); MEAN CORPUSCULAR HGB CONC 31.9 g/dl (32.0-37.0); MEAN CORPUSCULAR VOLUME 98.2 fl (82.0-101.0); MEAN PLATELET VOLUME 10.7 fl (7.4-10.4); MONOCYTE # 1.3 10^3/ul (0.3-0.9); NEUTROPHIL # 8.4 10^3/ul (1.6-7.5); NEUTROPHILS % 75.5 % (39.0-77.0); PLATELET COUNT 155 10^3/UL (140-415); RED BLOOD COUNT 2.17 10^6/ul (4.20-5.40); RED CELL DISTRIBUTION WIDTH 13.6 % (11.5-14.5)
[2017-11-09 06:03] LABS: WHITE BLOOD COUNT 11.1 10^3/ul (4.8-10.8)
[2017-11-09 06:21] LABS: HEMOGLOBIN 6.8 g/dl (12.0-16.0); POSITIVE DIFF @See below
[2017-11-09 06:31] LABS: VANCOMYCIN,RANDOM 10.9 ug/ml
[2017-11-09 06:33] LABS: ANION GAP 21 (8-16); BLOOD UREA NITROGEN 86 mg/dl (7-20); CALCIUM 8.1 mg/dl (8.4-10.2); CARBON DIOXIDE 25 mmol/L (21-31); CHLORIDE 91 mmol/L (97-110); GLUCOSE 122 mg/dl (70-220); POTASSIUM 4.8 mmol/L (3.5-5.1); SODIUM 132 mmol/L (135-144)
[2017-11-09 06:40] LABS: CREATININE 12.57 mg/dl (0.44-1.00)
[2017-11-09] MEDS: INSULIN ASPART [NOVOLOG] 3 ML PEN SC ×4 (07:30→21:00)
[2017-11-09] MEDS: CALCIUM ACETATE 667 MG CAP PO ×3 (08:04→17:32)
[2017-11-09] MEDS: LINAGLIPTIN 5 MG TABLET PO (08:52)
[2017-11-09] MEDS: DOCUSATE SODIUM 100 MG CAP PO ×2 (08:52→21:00)
[2017-11-09] MEDS: FOLIC ACID 1 MG TAB PO (08:52)
[2017-11-09] MEDS: METOPROLOL (XL) 50 MG TAB PO (09:00)
[2017-11-09] MEDS: PANTOPRAZOLE (EC) 40 MG TAB PO (11:00)
[2017-11-09 11:20] LABS: ADD UMIC YES; UR ASCORBIC ACID NEGATIVE (NEGATIVE); UR BACTERIA FEW /HPF (NONE SEEN); UR BILIRUBIN (Dip) NEGATIVE (NEGATIVE); UR BLOOD (Dip) 1+ mg/dL (NEGATIVE); UR CLARITY CLEAR (CLEAR); UR COLOR YELLOW (YELLOW); UR GLUCOSE (Dip) NEGATIVE (NEGATIVE); UR KETONES (Dip) NEGATIVE (NEGATIVE); UR LEUKOCYTE ESTERASE (Dip) NEGATIVE Leu/ul (NEGATIVE); UR NITRITE (Dip) NEGATIVE (NEGATIVE); UR RBC 0 /HPF (0-5); UR SPECIFIC GRAVITY (Dip) 1.014 (1.003-1.030); UR TOTAL PROTEIN (Dip) 2+ mg/dl (NEGATIVE); UR UROBILINOGEN (Dip) NEGATIVE (NEGATIVE); UR WBC 3 /HPF (0-5)
[2017-11-09] MEDS: VANCOMYCIN 1 GM 250 ML IVPB (12:09)
[2017-11-09 17:10] LABS: IMMEDIATE SPIN CROSSMATCH 1 6
[2017-11-09 19:35] LABS: HEPATITIS B SURFACE ANTIGEN NEGATIVE (NEGATIVE)
[2017-11-09] MEDS: ACETAMINOPHEN 325 MG TAB PO (21:44)
[2017-11-09] MEDS: CEFTRIAXONE 1 GM/50 ML (PMX) 50 ML IVPB (21:45)
[2017-11-10] MEDS: ACCU-CHEK XX (01:11)
[2017-11-10 05:10] LABS: ADD MAN DIFF? NO
[2017-11-10 05:24] LABS: WHITE BLOOD COUNT 9.4 10^3/ul (4.8-10.8)
[2017-11-10 05:24] LABS: BASOPHILS % 0.2 % (0.0-2.0); EOSINOPHILS # 0.2 10^3/ul (0.0-0.5); EOSINOPHILS % 2.6 % (0.0-7.0); HEMOGLOBIN 8.2 g/dl (12.0-16.0); LYMPHOCYTES % 10.2 % (15.0-51.0); MEAN CORPUSCULAR HGB CONC 32.8 g/dl (32.0-37.0); MEAN CORPUSCULAR VOLUME 97.7 fl (82.0-101.0); MEAN PLATELET VOLUME 10.3 fl (7.4-10.4); MONOCYTE # 1.5 10^3/ul (0.3-0.9); MONOCYTES % 15.9 % (0.0-11.0); NEUTROPHIL # 6.6 10^3/ul (1.6-7.5); NEUTROPHILS % 70.6 % (39.0-77.0); PLATELET COUNT 176 10^3/UL (140-415); RED BLOOD COUNT 2.56 10^6/ul (4.20-5.40); RED CELL DISTRIBUTION WIDTH 13.7 % (11.5-14.5)
[2017-11-10] MEDS: PANTOPRAZOLE (EC) 40 MG TAB PO (05:52)
[2017-11-10 05:55] LABS: ANION GAP 16 (8-16); BLOOD UREA NITROGEN 54 mg/dl (7-20); CARBON DIOXIDE 25 mmol/L (21-31); CHLORIDE 101 mmol/L (97-110); CREATININE 10.59 mg/dl (0.44-1.00); GLUCOSE 136 mg/dl (70-220); POTASSIUM 4.3 mmol/L (3.5-5.1); SODIUM 138 mmol/L (135-144)
[2017-11-10] MEDS: INSULIN ASPART [NOVOLOG] 3 ML PEN SC ×4 (07:30→20:56)
[2017-11-10] MEDS: ACETAMINOPHEN 325 MG TAB PO (07:38)
[2017-11-10] MEDS: LINAGLIPTIN 5 MG TABLET PO (08:07)
[2017-11-10] MEDS: CALCIUM ACETATE 667 MG CAP PO ×3 (08:07→17:32)
[2017-11-10] MEDS: FOLIC ACID 1 MG TAB PO (08:07)
[2017-11-10] MEDS: DOCUSATE SODIUM 100 MG CAP PO ×2 (08:07→20:56)
[2017-11-10] MEDS: METOPROLOL (XL) 50 MG TAB PO (09:50)
[2017-11-10] MEDS: EPOETIN 4000 UNITS/1 ML INJ (ESRD) SC (11:44)
[2017-11-10] MEDS: CEFTRIAXONE 1 GM/50 ML (PMX) 50 ML IVPB (21:05)
[2017-11-11] MEDS: ACCU-CHEK XX (02:00)
[2017-11-11] MEDS: ACETAMINOPHEN 325 MG TAB PO ×2 (04:20→17:32)
[2017-11-11] MEDS: PANTOPRAZOLE (EC) 40 MG TAB PO (06:50)
[2017-11-11] MEDS: INSULIN ASPART [NOVOLOG] 3 ML PEN SC ×4 (07:30→20:40)
[2017-11-11] MEDS: LINAGLIPTIN 5 MG TABLET PO (08:03)
[2017-11-11] MEDS: CALCIUM ACETATE 667 MG CAP PO ×3 (08:03→17:32)
[2017-11-11] MEDS: DOCUSATE SODIUM 100 MG CAP PO ×2 (08:03→20:41)
[2017-11-11] MEDS: FOLIC ACID 1 MG TAB PO (08:03)
[2017-11-11] MEDS: METOPROLOL (XL) 50 MG TAB PO (08:09)
[2017-11-11] MEDS ORDERED: SODIUM CHLORIDE 0.9% 1L BAG IV (16:30)
[2017-11-11] MEDS ORDERED: ALBUMIN HUMAN 25% 50 ML IV (16:30)
[2017-11-11 17:07] LABS: HEMATOCRIT 23.5 % (37.0-47.0); HEMOGLOBIN 7.8 g/dl (12.0-16.0)
[2017-11-11] MEDS: CEFTRIAXONE 1 GM/50 ML (PMX) 50 ML IVPB (22:20)
[2017-11-12] MEDS ORDERED: VANCOMYCIN IV PER PHARMACY XX
[2017-11-12] MEDS: ACCU-CHEK XX ×2 (02:00→23:22)
[2017-11-12 05:52] LABS: ADD MAN DIFF? NO
[2017-11-12 05:55] LABS: WHITE BLOOD COUNT 7.9 10^3/ul (4.8-10.8)
[2017-11-12 05:55] LABS: BASOPHILS % 0.4 % (0.0-2.0); EOSINOPHILS # 0.3 10^3/ul (0.0-0.5); EOSINOPHILS % 4.3 % (0.0-7.0); HEMOGLOBIN 7.5 g/dl (12.0-16.0); LYMPHOCYTES # 0.9 10^3/ul (0.8-2.9); LYMPHOCYTES % 11.5 % (15.0-51.0); MEAN CORPUSCULAR HEMOGLOBIN 31.5 pg (29.0-33.0); MEAN CORPUSCULAR HGB CONC 32.6 g/dl (32.0-37.0); MEAN CORPUSCULAR VOLUME 96.6 fl (82.0-101.0); MEAN PLATELET VOLUME 10.4 fl (7.4-10.4); MONOCYTE # 1.2 10^3/ul (0.3-0.9); MONOCYTES % 14.8 % (0.0-11.0); NEUTROPHIL # 5.3 10^3/ul (1.6-7.5); NEUTROPHILS % 67.6 % (39.0-77.0); PLATELET COUNT 223 10^3/UL (140-415); RED BLOOD COUNT 2.38 10^6/ul (4.20-5.40); RED CELL DISTRIBUTION WIDTH 13.2 % (11.5-14.5)
[2017-11-12] MEDS: PANTOPRAZOLE (EC) 40 MG TAB PO (05:57)
[2017-11-12 06:20] LABS: ANION GAP 19 (8-16); BLOOD UREA NITROGEN 71 mg/dl (7-20); CALCIUM 8.4 mg/dl (8.4-10.2); CARBON DIOXIDE 23 mmol/L (21-31); CHLORIDE 98 mmol/L (97-110); GLUCOSE 108 mg/dl (70-220); POTASSIUM 4.1 mmol/L (3.5-5.1); SODIUM 136 mmol/L (135-144)
[2017-11-12 06:26] LABS: VANCOMYCIN,RANDOM 15.6 ug/ml
[2017-11-12 06:41] LABS: CREATININE 13.95 mg/dl (0.44-1.00)
[2017-11-12] MEDS: INSULIN ASPART [NOVOLOG] 3 ML PEN SC ×4 (07:30→21:00)
[2017-11-12] MEDS: CALCIUM ACETATE 667 MG CAP PO ×3 (08:02→17:35)
[2017-11-12] MEDS: DOCUSATE SODIUM 100 MG CAP PO ×2 (08:36→22:12)
[2017-11-12] MEDS: FOLIC ACID 1 MG TAB PO (08:36)
[2017-11-12] MEDS: LINAGLIPTIN 5 MG TABLET PO (08:36)
[2017-11-12] MEDS: METOPROLOL (XL) 50 MG TAB PO (08:36)
[2017-11-12 11:15] LABS: HEMOGLOBIN 7.7 g/dl (12.0-16.0)
[2017-11-12] MEDS: VANCOMYCIN 1 GM 250 ML IVPB (11:44)
[2017-11-12] MEDS: RIFAMPIN 300 MG CAP PO (16:00)
[2017-11-12] MEDS: DESMOPRESSIN 27 MCG in SOD CHLORIDE 0.9% 50 ML IVPB (17:00)
[2017-11-12 19:04] LABS: HEMOGLOBIN 7.7 g/dl (12.0-16.0)
[2017-11-12] MEDS: ACETAMINOPHEN 325 MG TAB PO (22:12)
[2017-11-12] MEDS: CEFTRIAXONE 1 GM/50 ML (PMX) 50 ML IVPB (22:13)
[2017-11-12 22:40] LABS: HEMATOCRIT 20.7 % (37.0-47.0)
[2017-11-12 22:46] LABS: HEMOGLOBIN 6.9 g/dl (12.0-16.0)
[2017-11-13] MEDS: PANTOPRAZOLE (EC) 40 MG TAB PO (06:00)
[2017-11-13] MEDS: INSULIN ASPART [NOVOLOG] 3 ML PEN SC ×4 (07:30→21:00)
[2017-11-13] MEDS: CALCIUM ACETATE 667 MG CAP PO ×3 (07:35→17:35)
[2017-11-13] MEDS: LINAGLIPTIN 5 MG TABLET PO (08:09)
[2017-11-13] MEDS: DOCUSATE SODIUM 100 MG CAP PO ×2 (08:09→21:34)
[2017-11-13] MEDS: FOLIC ACID 1 MG TAB PO (08:09)
[2017-11-13] MEDS: RIFAMPIN 300 MG CAP PO (08:09)
[2017-11-13] MEDS: METOPROLOL (XL) 50 MG TAB PO (08:09)
[2017-11-13 08:33] LABS: HEMATOCRIT 24.4 % (37.0-47.0); HEMOGLOBIN 7.5 g/dl (12.0-16.0)
[2017-11-13 16:16] LABS: HEMATOCRIT 21.4 % (37.0-47.0)
[2017-11-13 16:21] LABS: HEMOGLOBIN 6.9 g/dl (12.0-16.0)
[2017-11-13] MEDS: CEFTRIAXONE 1 GM/50 ML (PMX) 50 ML IVPB (22:20)
[2017-11-14] MEDS: LIDOCAINE 1% (MPF) 30 ML INJ
[2017-11-14] MEDS: BUPIVACAINE 0.25% (MPF) 30 ML INJ
[2017-11-14 01:05] LABS: HEMATOCRIT 23.1 % (37.0-47.0); HEMOGLOBIN 7.6 g/dl (12.0-16.0)
[2017-11-14] MEDS: ACCU-CHEK XX (01:59)
[2017-11-14] MEDS: PANTOPRAZOLE (EC) 40 MG TAB PO (05:20)
[2017-11-14 06:33] LABS: ADD MAN DIFF? NO
[2017-11-14 06:42] LABS: BASOPHILS % 0.4 % (0.0-2.0); EOSINOPHILS # 0.4 10^3/ul (0.0-0.5); EOSINOPHILS % 6.6 % (0.0-7.0); HEMATOCRIT 23.4 % (37.0-47.0); HEMOGLOBIN 7.6 g/dl (12.0-16.0); LYMPHOCYTES # 1.1 10^3/ul (0.8-2.9); LYMPHOCYTES % 15.9 % (15.0-51.0); MEAN CORPUSCULAR HEMOGLOBIN 31.1 pg (29.0-33.0); MEAN CORPUSCULAR HGB CONC 32.5 g/dl (32.0-37.0); MEAN CORPUSCULAR VOLUME 95.9 fl (82.0-101.0); MEAN PLATELET VOLUME 9.6 fl (7.4-10.4); MONOCYTE # 1.3 10^3/ul (0.3-0.9); MONOCYTES % 19.5 % (0.0-11.0); NEUTROPHIL # 3.7 10^3/ul (1.6-7.5); NEUTROPHILS % 54.8 % (39.0-77.0); PLATELET COUNT 236 10^3/UL (140-415); RED BLOOD COUNT 2.44 10^6/ul (4.20-5.40); RED CELL DISTRIBUTION WIDTH 14.4 % (11.5-14.5)
[2017-11-14 06:42] LABS: WHITE BLOOD COUNT 6.7 10^3/ul (4.8-10.8)
[2017-11-14] MEDS ORDERED: PROPOFOL 1000 MG INJ (07:00)
[2017-11-14 07:04] LABS: ANION GAP 18 (8-16); BLOOD UREA NITROGEN 47 mg/dl (7-20); CALCIUM 8.2 mg/dl (8.4-10.2); CARBON DIOXIDE 27 mmol/L (21-31); CHLORIDE 100 mmol/L (97-110); CREATININE 10.55 mg/dl (0.44-1.00); GLUCOSE 116 mg/dl (70-220); POTASSIUM 4.5 mmol/L (3.5-5.1); SODIUM 140 mmol/L (135-144)
[2017-11-14] MEDS: INSULIN ASPART [NOVOLOG] 3 ML PEN SC ×4 (07:30→20:33)
[2017-11-14] MEDS: CALCIUM ACETATE 667 MG CAP PO ×3 (07:35→17:03)
[2017-11-14] MEDS: DOCUSATE SODIUM 100 MG CAP PO ×2 (08:47→20:48)
[2017-11-14] MEDS: LINAGLIPTIN 5 MG TABLET PO (08:47)
[2017-11-14] MEDS: FOLIC ACID 1 MG TAB PO (08:47)
[2017-11-14] MEDS: RIFAMPIN 300 MG CAP PO (08:47)
[2017-11-14 15:29] LABS: HEMATOCRIT 25.8 % (37.0-47.0); HEMOGLOBIN 8.2 g/dl (12.0-16.0)
[2017-11-14] MEDS: DEXTROSE 5%-0.45% NACL 1,000 ML IV (16:15)
[2017-11-14] MEDS ORDERED: SODIUM CHLORIDE 0.9% 1L BAG IV (17:00)
[2017-11-14] MEDS ORDERED: ALBUMIN HUMAN 25% 50 ML IV (17:00)
[2017-11-14] MEDS ORDERED: MIDAZOLAM 1 MG/ML 2 ML INJ (17:25)
[2017-11-14] MEDS ORDERED: ROPIVACAINE 0.5 % 30 ML VIAL (17:27)
[2017-11-14] MEDS ORDERED: CEFAZOLIN 1 GM INJ (17:41)
[2017-11-14] MEDS ORDERED: DEXAMETHASONE 4 MG/ML 1 ML INJ (17:41)
[2017-11-14] MEDS ORDERED: ONDANSETRON 4 MG INJ (17:41)
[2017-11-14] MEDS ORDERED: METOCLOPRAMIDE 10 MG INJ (17:41)
[2017-11-14] MEDS ORDERED: LIDOCAINE 1% (MPF) 30 ML INJ (17:42)
[2017-11-14] MEDS ORDERED: HEPARIN 1000 UNITS/ML 10 ML INJ (17:50)
[2017-11-14] MEDS ORDERED: GELATIN SIZE 100 SPONGE (17:52)
[2017-11-14] MEDS: THROMBIN 5000 UNIT VIAL ×2 (18:08→18:09)
[2017-11-14 18:12] LABS: IMMEDIATE SPIN CROSSMATCH 1 5
[2017-11-14] MEDS: CEFTRIAXONE 1 GM/50 ML (PMX) 50 ML IVPB (20:48)
[2017-11-15] MEDS: ACETAMINOPHEN 325 MG TAB PO ×2 (00:26→18:54)
[2017-11-15] MEDS: ACCU-CHEK XX (02:00)
[2017-11-15] MEDS: PANTOPRAZOLE (EC) 40 MG TAB PO (05:19)
[2017-11-15 06:13] LABS: ADD MAN DIFF? NO
[2017-11-15 06:24] LABS: WHITE BLOOD COUNT 8.6 10^3/ul (4.8-10.8)
[2017-11-15 06:24] LABS: BASOPHILS % 0.2 % (0.0-2.0); EOSINOPHILS # 0.4 10^3/ul (0.0-0.5); EOSINOPHILS % 5.1 % (0.0-7.0); HEMATOCRIT 26.4 % (37.0-47.0); HEMOGLOBIN 8.5 g/dl (12.0-16.0); LYMPHOCYTES # 1.1 10^3/ul (0.8-2.9); LYMPHOCYTES % 12.6 % (15.0-51.0); MEAN CORPUSCULAR HEMOGLOBIN 30.7 pg (29.0-33.0); MEAN CORPUSCULAR HGB CONC 32.2 g/dl (32.0-37.0); MEAN CORPUSCULAR VOLUME 95.3 fl (82.0-101.0); MEAN PLATELET VOLUME 9.5 fl (7.4-10.4); MONOCYTE # 1.2 10^3/ul (0.3-0.9); MONOCYTES % 14.1 % (0.0-11.0); NEUTROPHIL # 5.7 10^3/ul (1.6-7.5); NEUTROPHILS % 66.5 % (39.0-77.0); PLATELET COUNT 239 10^3/UL (140-415); RED BLOOD COUNT 2.77 10^6/ul (4.20-5.40)
[2017-11-15 06:45] LABS: ANION GAP 17 (8-16); BLOOD UREA NITROGEN 53 mg/dl (7-20); CALCIUM 8.3 mg/dl (8.4-10.2); CARBON DIOXIDE 25 mmol/L (21-31); CHLORIDE 102 mmol/L (97-110); CREATININE 11.63 mg/dl (0.44-1.00); GLUCOSE 95 mg/dl (70-220); POTASSIUM 4.7 mmol/L (3.5-5.1); SODIUM 139 mmol/L (135-144)
[2017-11-15 07:00] LABS: PHOSPHORUS 5.2 mg/dl (2.5-4.9)
[2017-11-15 07:00] LABS: MAGNESIUM 2.3 mg/dl (1.7-2.5)
[2017-11-15] MEDS: INSULIN ASPART [NOVOLOG] 3 ML PEN SC ×4 (07:30→22:20)
[2017-11-15] MEDS: LINAGLIPTIN 5 MG TABLET PO (08:17)
[2017-11-15] MEDS: RIFAMPIN 300 MG CAP PO (08:17)
[2017-11-15] MEDS: CALCIUM ACETATE 667 MG CAP PO ×4 (08:17→21:07)
[2017-11-15] MEDS: FOLIC ACID 1 MG TAB PO (08:17)
[2017-11-15] MEDS: DOCUSATE SODIUM 100 MG CAP PO ×2 (08:17→20:58)
[2017-11-15] MEDS ORDERED: HEPARIN 1000 UNITS/ML 10 ML INJ (10:52)
[2017-11-15] MEDS: SOD CHLORIDE 0.9% IVPB (13:40)
[2017-11-15] MEDS: DESMOPRESSIN IVPB (13:40)
[2017-11-15 19:31] LABS: HEMATOCRIT 26.1 % (37.0-47.0); HEMOGLOBIN 8.6 g/dl (12.0-16.0)
[2017-11-15] MEDS: HEPARIN 1000 UNITS/ML 10 ML INJ CATHETER (19:44)
[2017-11-15] MEDS: CEFTRIAXONE 1 GM/50 ML (PMX) 50 ML IVPB (20:59)
[2017-11-16] MEDS: ACCU-CHEK XX (02:00)
[2017-11-16] MEDS: PANTOPRAZOLE (EC) 40 MG TAB PO (06:16)
[2017-11-16] MEDS ORDERED: PROPOFOL 200 MG INJ (07:00)
[2017-11-16] MEDS ORDERED: CEFAZOLIN 1 GM INJ (07:00)
[2017-11-16] MEDS: INSULIN ASPART [NOVOLOG] 3 ML PEN SC ×4 (07:30→20:51)
[2017-11-16] MEDS: CALCIUM ACETATE 667 MG CAP PO ×3 (07:35→16:40)
[2017-11-16] MEDS: DOCUSATE SODIUM 100 MG CAP PO ×2 (08:22→20:44)
[2017-11-16] MEDS: FOLIC ACID 1 MG TAB PO (08:22)
[2017-11-16] MEDS: RIFAMPIN 300 MG CAP PO (08:22)
[2017-11-16] MEDS: LINAGLIPTIN 5 MG TABLET PO (08:22)
[2017-11-16] MEDS: DEXTROSE 5% 1,000 ML IV (11:06)
[2017-11-16] MEDS ORDERED: ALBUMIN HUMAN 25% 50 ML IV (16:30)
[2017-11-16] MEDS ORDERED: SODIUM CHLORIDE 0.9% 1L BAG IV (16:30)
[2017-11-16] MEDS ORDERED: IOHEXOL 300MG/ML 30 ML BTL (20:08)
[2017-11-16] MEDS ORDERED: HEPARIN 1000 UNITS/ML 10 ML INJ (20:08)
[2017-11-16] MEDS ORDERED: LIDOCAINE 1% (MPF) 30 ML INJ (20:09)
[2017-11-16] MEDS: CEFTRIAXONE 1 GM/50 ML (PMX) 50 ML IVPB (20:50)
[2017-11-16] MEDS ORDERED: LIDOCAINE 2% (SDV) 5 ML INJ (23:59)
[2017-11-16] MEDS ORDERED: FENTAnyl 50 MCG/ML VIAL (23:59)
[2017-11-16] MEDS ORDERED: MIDAZOLAM 1 MG/ML 2 ML INJ (23:59)
[2017-11-16] MEDS ORDERED: PROPOFOL 20 ML (23:59)
[2017-11-17] MEDS ORDERED: LABETALOL HCL 20MG INJ (00:17)
[2017-11-17] MEDS ORDERED: hydrALAzine 20 MG INJ (00:32)
[2017-11-17] MEDS ORDERED: FENTAnyl 50 MCG/ML VIAL (00:37)
[2017-11-17] MEDS: LIDOCAINE 1% (MPF) 30 ML INJ (00:38)
[2017-11-17] MEDS ORDERED: MIDAZOLAM 1 MG/ML 2 ML INJ (00:59)
[2017-11-17] MEDS ORDERED: HYDROmorphONE 0.4 MG IV (01:35)
[2017-11-17] MEDS ORDERED: hydrALAzine 5 MG IV (01:35)
[2017-11-17] MEDS ORDERED: FENTAnyl 25 MCG IV (01:35)
[2017-11-17] MEDS ORDERED: ONDANSETRON 4 MG INJ IV (01:35)
[2017-11-17] MEDS ORDERED: LABETALOL 5 MG IV (01:35)
[2017-11-17] MEDS: ACCU-CHEK XX ×2 (02:00→20:09)
[2017-11-17] MEDS: ACETAMINOPHEN 325 MG TAB PO ×2 (02:33→20:06)
[2017-11-17 04:19] LABS: IMMEDIATE SPIN CROSSMATCH 1 3
[2017-11-17] MEDS: PANTOPRAZOLE (EC) 40 MG TAB PO (05:27)
[2017-11-17] MEDS: RIFAMPIN 300 MG CAP PO (08:17)
[2017-11-17] MEDS: DOCUSATE SODIUM 100 MG CAP PO ×2 (08:17→20:06)
[2017-11-17] MEDS: INSULIN ASPART [NOVOLOG] 3 ML PEN SC ×4 (08:17→20:09)
[2017-11-17] MEDS: FOLIC ACID 1 MG TAB PO (08:17)
[2017-11-17] MEDS: LINAGLIPTIN 5 MG TABLET PO (08:17)
[2017-11-17] MEDS: ASPIRIN (EC) 81 MG TAB PO (08:18)
[2017-11-17] MEDS: CALCIUM ACETATE 667 MG CAP PO ×3 (08:18→17:40)
[2017-11-17] MEDS: DEXTROSE 5% 1,000 ML IV (10:53)
[2017-11-17 11:27] LABS: ADD MAN DIFF? NO
[2017-11-17 11:52] LABS: ANION GAP 18 (8-16); BLOOD UREA NITROGEN 36 mg/dl (7-20); CALCIUM 8.5 mg/dl (8.4-10.2); CARBON DIOXIDE 25 mmol/L (21-31); CHLORIDE 101 mmol/L (97-110); CREATININE 9.74 mg/dl (0.44-1.00); GLUCOSE 137 mg/dl (70-220); POTASSIUM 4.5 mmol/L (3.5-5.1); SODIUM 139 mmol/L (135-144)
[2017-11-17 12:36] LABS: BASOPHILS % 0.4 % (0.0-2.0); EOSINOPHILS # 0.3 10^3/ul (0.0-0.5); EOSINOPHILS % 3.6 % (0.0-7.0); HEMATOCRIT 28.5 % (37.0-47.0); HEMOGLOBIN 9.4 g/dl (12.0-16.0); LYMPHOCYTES % 12.1 % (15.0-51.0); MEAN CORPUSCULAR HEMOGLOBIN 30.5 pg (29.0-33.0); MEAN CORPUSCULAR VOLUME 92.5 fl (82.0-101.0); MEAN PLATELET VOLUME 9.5 fl (7.4-10.4); MONOCYTE # 1.2 10^3/ul (0.3-0.9); NEUTROPHIL # 5.3 10^3/ul (1.6-7.5); NEUTROPHILS % 67.5 % (39.0-77.0); PLATELET COUNT 211 10^3/UL (140-415); RED BLOOD COUNT 3.08 10^6/ul (4.20-5.40); RED CELL DISTRIBUTION WIDTH 14.4 % (11.5-14.5)
[2017-11-17 12:36] LABS: WHITE BLOOD COUNT 7.9 10^3/ul (4.8-10.8)
[2017-11-17] MEDS: HEPARIN 1000 UNITS/ML 10 ML INJ CATHETER (16:51)
[2017-11-17] MEDS: CEFTRIAXONE 1 GM/50 ML (PMX) 50 ML IVPB (20:09)
[2017-11-18] MEDS: PANTOPRAZOLE (EC) 40 MG TAB PO (05:23)
[2017-11-18] MEDS: INSULIN ASPART [NOVOLOG] 3 ML PEN SC ×4 (07:30→21:00)
[2017-11-18] MEDS: RIFAMPIN 300 MG CAP PO (08:18)
[2017-11-18] MEDS: FOLIC ACID 1 MG TAB PO (08:18)
[2017-11-18] MEDS: DOCUSATE SODIUM 100 MG CAP PO ×2 (08:18→21:17)
[2017-11-18] MEDS: CALCIUM ACETATE 667 MG CAP PO ×3 (08:18→17:18)
[2017-11-18] MEDS: LINAGLIPTIN 5 MG TABLET PO (08:18)
[2017-11-18] MEDS: ASPIRIN (EC) 81 MG TAB PO (08:18)
[2017-11-18] MEDS: CEFTRIAXONE 1 GM/50 ML (PMX) 50 ML IVPB (21:17)
[2017-11-19] MEDS: ACCU-CHEK XX ×2 (02:00→22:39)
[2017-11-19] MEDS: PANTOPRAZOLE (EC) 40 MG TAB PO (05:42)
[2017-11-19 06:57] LABS: ADD MAN DIFF? NO
[2017-11-19 07:05] LABS: BASOPHIL # 0.1 10^3/ul (0.0-0.1); BASOPHILS % 0.6 % (0.0-2.0); EOSINOPHILS # 0.6 10^3/ul (0.0-0.5); HEMATOCRIT 28.7 % (37.0-47.0); HEMOGLOBIN 9.4 g/dl (12.0-16.0); MEAN CORPUSCULAR HEMOGLOBIN 30.8 pg (29.0-33.0); MEAN CORPUSCULAR HGB CONC 32.8 g/dl (32.0-37.0); MEAN CORPUSCULAR VOLUME 94.1 fl (82.0-101.0); MEAN PLATELET VOLUME 9.5 fl (7.4-10.4); MONOCYTE # 1.3 10^3/ul (0.3-0.9); MONOCYTES % 14.7 % (0.0-11.0); NEUTROPHIL # 5.5 10^3/ul (1.6-7.5); NEUTROPHILS % 64.5 % (39.0-77.0); PLATELET COUNT 232 10^3/UL (140-415); RED BLOOD COUNT 3.05 10^6/ul (4.20-5.40); RED CELL DISTRIBUTION WIDTH 14.1 % (11.5-14.5)
[2017-11-19 07:05] LABS: WHITE BLOOD COUNT 8.5 10^3/ul (4.8-10.8)
[2017-11-19] MEDS: INSULIN ASPART [NOVOLOG] 3 ML PEN SC ×4 (07:30→21:00)
[2017-11-19 07:33] LABS: ALANINE AMINOTRANSFERASE 12 IU/L (13-69); ALBUMIN 3.3 g/dl (3.3-4.9); ALBUMIN/GLOBULIN RATIO 0.89; ALKALINE PHOSPHATASE 137 IU/L (42-121); ANION GAP 17 (8-16); ASPARTATE AMINO TRANSFERASE 29 IU/L (15-46); BILIRUBIN,INDIRECT 0.1 mg/dl (0-1.1); BILIRUBIN,TOTAL 0.1 mg/dl (0.2-1.3); BLOOD UREA NITROGEN 21 mg/dl (7-20); CALCIUM 9.4 mg/dl (8.4-10.2); CARBON DIOXIDE 24 mmol/L (21-31); CHLORIDE 104 mmol/L (97-110); CREATININE 9.16 mg/dl (0.44-1.00); GLUCOSE 90 mg/dl (70-220); POTASSIUM 4.5 mmol/L (3.5-5.1); SODIUM 140 mmol/L (135-144)
[2017-11-19] MEDS: ASPIRIN (EC) 81 MG TAB PO (08:13)
[2017-11-19] MEDS: DOCUSATE SODIUM 100 MG CAP PO ×2 (08:13→21:00)
[2017-11-19] MEDS: CALCIUM ACETATE 667 MG CAP PO ×3 (08:13→17:14)
[2017-11-19] MEDS: LINAGLIPTIN 5 MG TABLET PO (08:13)
[2017-11-19] MEDS: FOLIC ACID 1 MG TAB PO (08:13)
[2017-11-19] MEDS: RIFAMPIN 300 MG CAP PO (08:13)
[2017-11-19] MEDS ORDERED: HEPARIN 1000 UNITS/ML 10 ML INJ CATHETER (13:30)
[2017-11-19] MEDS ORDERED: SODIUM CHLORIDE 0.9% 1L BAG IV (13:30)
[2017-11-19] MEDS ORDERED: ALBUMIN HUMAN 25% 50 ML IV (13:30)
[2017-11-19] MEDS: CEFTRIAXONE 1 GM/50 ML (PMX) 50 ML IVPB (22:36)
[2017-11-20] MEDS: PANTOPRAZOLE (EC) 40 MG TAB PO (05:54)
[2017-11-20 06:22] LABS: ADD MAN DIFF? NO
[2017-11-20 06:25] LABS: WHITE BLOOD COUNT 10.3 10^3/ul (4.8-10.8)
[2017-11-20 06:25] LABS: BASOPHIL # 0.1 10^3/ul (0.0-0.1); BASOPHILS % 0.6 % (0.0-2.0); EOSINOPHILS # 0.6 10^3/ul (0.0-0.5); HEMOGLOBIN 9.5 g/dl (12.0-16.0); LYMPHOCYTES # 1.1 10^3/ul (0.8-2.9); LYMPHOCYTES % 10.9 % (15.0-51.0); MEAN CORPUSCULAR HEMOGLOBIN 31.8 pg (29.0-33.0); MEAN CORPUSCULAR HGB CONC 32.8 g/dl (32.0-37.0); MEAN PLATELET VOLUME 9.8 fl (7.4-10.4); MONOCYTE # 1.3 10^3/ul (0.3-0.9); MONOCYTES % 12.7 % (0.0-11.0); NEUTROPHIL # 7.1 10^3/ul (1.6-7.5); NEUTROPHILS % 68.9 % (39.0-77.0); PLATELET COUNT 255 10^3/UL (140-415); RED BLOOD COUNT 2.99 10^6/ul (4.20-5.40)
[2017-11-20] MEDS: INSULIN ASPART [NOVOLOG] 3 ML PEN SC ×4 (07:30→21:00)
[2017-11-20] MEDS: CALCIUM ACETATE 667 MG CAP PO ×3 (08:00→17:32)
[2017-11-20] MEDS: RIFAMPIN 300 MG CAP PO (08:00)
[2017-11-20] MEDS: ASPIRIN (EC) 81 MG TAB PO (08:00)
[2017-11-20] MEDS: LINAGLIPTIN 5 MG TABLET PO (08:00)
[2017-11-20] MEDS: DOCUSATE SODIUM 100 MG CAP PO ×2 (08:00→21:05)
[2017-11-20] MEDS: FOLIC ACID 1 MG TAB PO (08:00)
[2017-11-20] MEDS: HEPARIN 1000 UNITS/ML 10 ML INJ CATHETER (11:11)
[2017-11-20] MEDS ORDERED: DEXTROSE 5%-0.45% NACL 1,000 ML IV (16:00)
[2017-11-20] MEDS: CEFTRIAXONE 1 GM/50 ML (PMX) 50 ML IVPB (21:57)
[2017-11-21] MEDS: DEXTROSE 5%-0.45% NACL 1,000 ML IV (00:02)
[2017-11-21] MEDS: ACCU-CHEK XX (02:00)
[2017-11-21] MEDS: PANTOPRAZOLE (EC) 40 MG TAB PO (05:34)
[2017-11-21] MEDS: INSULIN ASPART [NOVOLOG] 3 ML PEN SC (07:30)
[2017-11-21] MEDS: CALCIUM ACETATE 667 MG CAP PO ×3 (07:35→17:23)
[2017-11-21] MEDS: DOCUSATE SODIUM 100 MG CAP PO ×2 (08:14→20:55)
[2017-11-21] MEDS: LINAGLIPTIN 5 MG TABLET PO (08:14)
[2017-11-21] MEDS: RIFAMPIN 300 MG CAP PO (08:14)
[2017-11-21] MEDS: FOLIC ACID 1 MG TAB PO (08:14)
[2017-11-21] MEDS: ASPIRIN (EC) 81 MG TAB PO (08:15)
[2017-11-21] MEDS ORDERED: SODIUM CHLORIDE 0.9% 1L BAG IV (11:00)
[2017-11-21] MEDS ORDERED: DEXTROSE 5%-0.45% NACL 1,000 ML IV (11:00)
[2017-11-21] MEDS ORDERED: ALBUMIN HUMAN 25% 50 ML IV (11:00)
[2017-11-21] MEDS: Insulin NOVOLOG SS MILD Algorithm (SS with meals and bedtime) SC ×3 (11:30→21:00)
[2017-11-21] MEDS ORDERED: INSULIN ASPART [NOVOLOG] 3 ML PEN SC ×2 (11:30→13:00)
[2017-11-21] MEDS ORDERED: Insulin NOVOLOG SS MILD Algorithm (NPO/TPN/ENTERAL FEEDS) SC (13:00)
[2017-11-21] MEDS: CEFTRIAXONE 1 GM/50 ML (PMX) 50 ML IVPB (22:05)
[2017-11-22] MEDS: DEXTROSE 5%-0.45% NACL 1,000 ML IV (00:05)
[2017-11-22] MEDS: INSULIN ASPART [NOVOLOG] 3 ML PEN SC ×5 (01:09→17:00)
[2017-11-22] MEDS: ACCUCHECK AT 2AM (Patients on SS coverage) XX (02:00)
[2017-11-22] MEDS: PANTOPRAZOLE (EC) 40 MG TAB PO (05:05)
[2017-11-22 06:08] LABS: ANION GAP 14 (8-16); BLOOD UREA NITROGEN 26 mg/dl (7-20); CALCIUM 9.3 mg/dl (8.4-10.2); CARBON DIOXIDE 27 mmol/L (21-31); CHLORIDE 104 mmol/L (97-110); CREATININE 9.67 mg/dl (0.44-1.00); GLUCOSE 109 mg/dl (70-220); POTASSIUM 4.7 mmol/L (3.5-5.1); SODIUM 140 mmol/L (135-144)
[2017-11-22] MEDS: CALCIUM ACETATE 667 MG CAP PO ×3 (07:35→17:14)
[2017-11-22] MEDS: ASPIRIN (EC) 81 MG TAB PO (08:47)
[2017-11-22] MEDS: FOLIC ACID 1 MG TAB PO (08:47)
[2017-11-22] MEDS: RIFAMPIN 300 MG CAP PO (08:47)
[2017-11-22] MEDS: DOCUSATE SODIUM 100 MG CAP PO ×2 (08:47→20:36)
[2017-11-22] MEDS: LINAGLIPTIN 5 MG TABLET PO (08:47)
[2017-11-22] MEDS ORDERED: LIDOCAINE 1% (MDV) 10 ML INJ (17:22)
[2017-11-22] MEDS ORDERED: FENTAnyl 50 MCG/ML VIAL (17:22)
[2017-11-22] MEDS ORDERED: HEPARIN 1000 UNITS/ML 10 ML INJ (17:22)
[2017-11-22] MEDS ORDERED: MIDAZOLAM 1 MG/ML 2 ML INJ (17:22)
[2017-11-22] MEDS: Insulin NOVOLOG SS MILD Algorithm (SS with meals and bedtime) SC (20:39)
[2017-11-22] MEDS: ACETAMINOPHEN 325 MG TAB PO (20:44)
[2017-11-22] MEDS ORDERED: INSULIN ASPART [NOVOLOG] 3 ML PEN SC (21:00)
[2017-11-22] MEDS: CEFTRIAXONE 1 GM/50 ML (PMX) 50 ML IVPB (22:01)
[2017-11-23] MEDS: ACCUCHECK AT 2AM (Patients on SS coverage) XX (02:00)
[2017-11-23] MEDS: HEPARIN 1000 UNITS/ML 10 ML INJ CATHETER (02:24)
[2017-11-23] MEDS: PANTOPRAZOLE (EC) 40 MG TAB PO (05:40)
[2017-11-23] MEDS: Insulin NOVOLOG SS MILD Algorithm (SS with meals and bedtime) SC ×3 (07:30→17:35)
[2017-11-23] MEDS: CALCIUM ACETATE 667 MG CAP PO ×3 (07:56→18:05)
[2017-11-23] MEDS: DOCUSATE SODIUM 100 MG CAP PO (08:07)
[2017-11-23] MEDS: RIFAMPIN 300 MG CAP PO (08:08)
[2017-11-23] MEDS: LINAGLIPTIN 5 MG TABLET PO (08:08)
[2017-11-23] MEDS: ASPIRIN (EC) 81 MG TAB PO (08:08)
[2017-11-23] MEDS: FOLIC ACID 1 MG TAB PO (08:08)
[2017-11-23] MEDS ORDERED: VANCOMYCIN IV PER PHARMACY XX (12:00)
[2017-11-23] MEDS: VANCOMYCIN 1.5 GM in SOD CHLORIDE 0.9% 250 ML IVPB (15:22)
== END 2017-11-23 20:52 | disposition home or self-care (01) | DRG 252 ==
LOC: E/R 18:08 → PP2 19:43
PROC: 057B0ZZ Dilation of Right Basilic Vein, Open Approach (ICD-10-PCS; principal; 2017-11-06 09:00)
PROC: 03170JD Bypass Right Brachial Artery to Upper Arm Vein with Synthetic Substitute, Open Approach (ICD-10-PCS; 2017-11-06 09:00)
PROC: 30233N1 Transfusion of Nonautologous Red Blood Cells into Peripheral Vein, Percutaneous Approach (ICD-10-PCS; 2017-11-06 09:57)
PROC: 05HN33Z Insertion of Infusion Device into Left Internal Jugular Vein, Percutaneous Approach (ICD-10-PCS; 2017-11-06 09:57)
PROC: 5A1D70Z Performance of Urinary Filtration, Intermittent, Less than 6 Hours Per Day (ICD-10-PCS; 2017-11-06 09:57)
PROC: 0JH63XZ Insertion of Tunneled Vascular Access Device into Chest Subcutaneous Tissue and Fascia, Percutaneous Approach (ICD-10-PCS; 2017-11-06 09:57)
PROC: 05HN33Z Insertion of Infusion Device into Left Internal Jugular Vein, Percutaneous Approach (ICD-10-PCS; 2017-11-06 09:57)
DX: T82.7XXA Infection and inflammatory reaction due to other cardiac and vascular devices, implants and grafts, initial encounter (principal); A41.01 Sepsis due to Methicillin susceptible Staphylococcus aureus; N18.6 End stage renal disease; A41.9 Sepsis, unspecified organism; T82.590A Other mechanical complication of surgically created arteriovenous fistula, initial encounter; D62 Acute posthemorrhagic anemia; I12.0 Hypertensive chronic kidney disease with stage 5 chronic kidney disease or end stage renal disease; D63.8 Anemia in other chronic diseases classified elsewhere; Z79.82 Long term (current) use of aspirin; Z95.0 Presence of cardiac pacemaker; Z99.2 Dependence on renal dialysis; E11.9 Type 2 diabetes mellitus without complications
CPT/HCPCS: 36415; 36430; 36556; 71045; 75820; 76937; 76942; 78806; 80048; 80053; 80202; 81001; 82962; 83735; 84100; 84132; 84484; 85014; 85018; 85025; 85610; 85730; 86644; 86850; 86900; 86901; 86920; 87040; 87070; 87075; 87081; 87102; 87116; 87340; 88304; 90935; 93005; 93306; 94640; 94664; 99217; 99285-25; G0378

== ENCOUNTER 2018-04-29 09:58 | Observation (INO) | payer MEDICARE, OTHER ==
[2018-04-29 11:58] LABS: ADD MAN DIFF? NO
[2018-04-29 12:00] LABS: BASOPHILS % 0.3 % (0.0-2.0); EOSINOPHILS # 0.5 10^3/ul (0.0-0.5); EOSINOPHILS % 7.8 % (0.0-7.0); HEMATOCRIT 35.5 % (37.0-47.0); HEMOGLOBIN 11.1 g/dl (12.0-16.0); LYMPHOCYTES # 1.4 10^3/ul (0.8-2.9); LYMPHOCYTES % 24.7 % (15.0-51.0); MEAN CORPUSCULAR HEMOGLOBIN 31.9 pg (29.0-33.0); MEAN CORPUSCULAR HGB CONC 31.3 g/dl (32.0-37.0); MEAN PLATELET VOLUME 10.1 fl (7.4-10.4); MONOCYTE # 0.8 10^3/ul (0.3-0.9); MONOCYTES % 14.4 % (0.0-11.0); NEUTROPHILS % 52.3 % (39.0-77.0); PLATELET COUNT 193 10^3/UL (140-415); RED BLOOD COUNT 3.48 10^6/ul (4.20-5.40); RED CELL DISTRIBUTION WIDTH 14.6 % (11.5-14.5)
[2018-04-29 12:00] LABS: WHITE BLOOD COUNT 5.8 10^3/ul (4.8-10.8)
[2018-04-29 12:23] LABS: ALANINE AMINOTRANSFERASE 18 IU/L (13-69); ALBUMIN/GLOBULIN RATIO 1.05; ALKALINE PHOSPHATASE 105 IU/L (42-121); ANION GAP 14 (5-13); ASPARTATE AMINO TRANSFERASE 32 IU/L (15-46); BILIRUBIN,INDIRECT 0.2 mg/dl (0-1.1); BILIRUBIN,TOTAL 0.2 mg/dl (0.2-1.3); BLOOD UREA NITROGEN 83 mg/dl (7-20); CALCIUM 9.2 mg/dl (8.4-10.2); CARBON DIOXIDE 28 mmol/L (21-31); CHLORIDE 95 mmol/L (97-110); CREATININE 10.25 mg/dl (0.44-1.00); Estimated GFR 4 mL/min (>60); GLUCOSE 98 mg/dl (70-220); LIPASE 721 U/L (23-300); POTASSIUM 5.8 mmol/L (3.5-5.1); SODIUM 137 mmol/L (135-144); TOTAL PROTEIN 7.8 g/dl (6.1-8.1)
[2018-04-29 12:27] LABS: INR 0.91; PROTIME 12.3 Sec (11.9-14.9)
[2018-04-29] MEDS: SOD CHLORIDE 0.9% 100 ML (13:39)
[2018-04-29] MEDS: IOHEXOL 100 ML (13:40)
[2018-04-29] MEDS: IOHEXOL 350MG/ML 50 ML BTL (13:40)
[2018-04-29] MEDS ORDERED: ONDANSETRON 4 MG INJ IV ×2 (14:00→18:00)
[2018-04-29] MEDS ORDERED: ACETAMINOPHEN 325 MG TAB PO ×2 (14:00→18:00)
[2018-04-29] MEDS: NA POLYST SULFON 15 GM/60 ML BTL PO (15:46)
[2018-04-29] MEDS: NA BICARBONATE 8.4% 50 ML SYG IV (15:47)
[2018-04-29] MEDS: ACCU-CHEK XX ×2 (17:30→21:00)
[2018-04-29] MEDS: CALCIUM ACETATE 667 MG CAP PO (17:46)
[2018-04-29] MEDS: [UNRECOGNIZED DRUG - REMARK] XX (18:00)
[2018-04-29] MEDS ORDERED: GLUCAGON 1 MG INJ IM (18:00)
[2018-04-29] MEDS ORDERED: GLUCOSE GEL 15 GRAM TUBE PO ×2 (18:00)
[2018-04-29] MEDS ORDERED: DEXTROSE 50% 50 ML SYRINGE IV ×2 (18:00)
[2018-04-29] MEDS ORDERED: BISACODYL (EC) 5 MG TAB PO (18:00)
[2018-04-29] MEDS ORDERED: HYDROCODONE/APAP (5/325) TAB PO (18:00)
[2018-04-29] MEDS ORDERED: NACL 0.9% 3 ML SYG IV (18:00)
[2018-04-29] MEDS ORDERED: GLUCOSE GEL 15 GRAM TUBE BUCCAL (18:00)
[2018-04-29 19:15] LABS: HEPATITIS B SURFACE ANTIGEN NEGATIVE (NEGATIVE)
[2018-04-29] MEDS ORDERED: HEPARIN 5,000 UNIT/0.5 ML VIAL (20:22)
[2018-04-29] MEDS: DOCUSATE SODIUM 100 MG CAP PO ×2 (21:00→22:40)
[2018-04-29] MEDS: HEPARIN 5,000 UNIT/1 ML VIAL SC ×2 (21:00→22:41)
[2018-04-29] MEDS: HEPARIN 1000 UNITS/ML 10 ML INJ CATHETER (22:29)
[2018-04-30] MEDS: [UNRECOGNIZED DRUG - REMARK] XX (02:00)
[2018-04-30] MEDS: PANTOPRAZOLE (EC) 40 MG TAB PO (05:45)
[2018-04-30 05:55] LABS: ANION GAP 12 (5-13); BLOOD UREA NITROGEN 47 mg/dl (7-20); CALCIUM 8.7 mg/dl (8.4-10.2); CARBON DIOXIDE 32 mmol/L (21-31); CHLORIDE 92 mmol/L (97-110); CREATININE 7.51 mg/dl (0.44-1.00); Estimated GFR 5 mL/min (>60); GLUCOSE 106 mg/dl (70-220); SODIUM 136 mmol/L (135-144)
[2018-04-30] MEDS: ACCU-CHEK XX ×4 (07:00→21:00)
[2018-04-30] MEDS ORDERED: HEPARIN 5,000 UNIT/0.5 ML VIAL ×2 (08:08→20:31)
[2018-04-30] MEDS: FOLIC ACID 1 MG TAB PO (08:19)
[2018-04-30] MEDS: CALCIUM ACETATE 667 MG CAP PO ×3 (08:19→16:55)
[2018-04-30] MEDS: LINAGLIPTIN 5 MG TABLET PO (08:19)
[2018-04-30] MEDS: METOPROLOL (XL) 50 MG TAB PO (08:20)
[2018-04-30] MEDS: [UNRECOGNIZED DRUG - REMARK] XX (10:00)
[2018-04-30] MEDS: DOCUSATE SODIUM 100 MG CAP PO (20:43)
[2018-04-30] MEDS: HEPARIN 5,000 UNIT/1 ML VIAL SC (20:54)
[2018-05-01] MEDS: PANTOPRAZOLE (EC) 40 MG TAB PO (05:58)
[2018-05-01 06:28] LABS: ANION GAP 14 (5-13); BLOOD UREA NITROGEN 65 mg/dl (7-20); CALCIUM 8.9 mg/dl (8.4-10.2); CARBON DIOXIDE 30 mmol/L (21-31); CHLORIDE 92 mmol/L (97-110); CREATININE 10.16 mg/dl (0.44-1.00); Estimated GFR 4 mL/min (>60); GLUCOSE 103 mg/dl (70-220); POTASSIUM 4.4 mmol/L (3.5-5.1); SODIUM 136 mmol/L (135-144)
[2018-05-01] MEDS: ACCU-CHEK XX ×2 (07:00→11:19)
[2018-05-01] MEDS: FOLIC ACID 1 MG TAB PO (09:36)
[2018-05-01] MEDS: CALCIUM ACETATE 667 MG CAP PO ×2 (09:36→11:20)
[2018-05-01] MEDS: LINAGLIPTIN 5 MG TABLET PO (09:36)
[2018-05-01] MEDS: DOCUSATE SODIUM 100 MG CAP PO (09:36)
[2018-05-01] MEDS: METOPROLOL (XL) 50 MG TAB PO (09:40)
[2018-05-01] MEDS: HEPARIN 5,000 UNIT/1 ML VIAL SC (09:46)
[2018-05-01] MEDS ORDERED: SODIUM CHLORIDE 0.9% 1L BAG IV (13:30)
[2018-05-01] MEDS ORDERED: HEPARIN 1000 UNITS/ML 10 ML INJ CATHETER (13:30)
== END 2018-05-01 17:56 | disposition home or self-care (01) ==
LOC: E/R 09:58 → 6WM 13:36
PROVIDERS: Internal Medicine
DX: I89.0 Lymphedema, not elsewhere classified (principal); I13.2 Hypertensive heart and chronic kidney disease with heart failure and with stage 5 chronic kidney disease, or end stage renal disease; I50.9 Heart failure, unspecified; E11.22 Type 2 diabetes mellitus with diabetic chronic kidney disease; N18.6 End stage renal disease; Z99.2 Dependence on renal dialysis; I25.10 Atherosclerotic heart disease of native coronary artery without angina pectoris; E78.5 Hyperlipidemia, unspecified; Z95.0 Presence of cardiac pacemaker
CPT/HCPCS: 36415; 73700; 74177; 80048; 80053; 82962; 83690; 85025; 85610; 85730; 87340; 90935; 93005; 93970; 99285-25; G0378

== ENCOUNTER 2018-07-18 09:27 | Emergency (ER) | payer MEDICARE, OTHER ==
[2018-07-18 11:17] LABS: ADD MAN DIFF? NO
[2018-07-18 11:20] LABS: BASOPHILS % 0.4 % (0.0-2.0); EOSINOPHILS # 0.5 10^3/ul (0.0-0.5); EOSINOPHILS % 8.4 % (0.0-7.0); HEMATOCRIT 37.8 % (37.0-47.0); HEMOGLOBIN 12.1 g/dl (12.0-16.0); LYMPHOCYTES # 0.9 10^3/ul (0.8-2.9); LYMPHOCYTES % 17.1 % (15.0-51.0); MEAN CORPUSCULAR VOLUME 96.9 fl (82.0-101.0); MEAN PLATELET VOLUME 10.1 fl (7.4-10.4); MONOCYTE # 0.7 10^3/ul (0.3-0.9); MONOCYTES % 12.1 % (0.0-11.0); NEUTROPHIL # 3.3 10^3/ul (1.6-7.5); NEUTROPHILS % 61.6 % (39.0-77.0); PLATELET COUNT 176 10^3/UL (140-415); RED CELL DISTRIBUTION WIDTH 12.7 % (11.5-14.5)
[2018-07-18 11:20] LABS: WHITE BLOOD COUNT 5.4 10^3/ul (4.8-10.8)
[2018-07-18 11:39] LABS: ANION GAP 11 (5-13); BLOOD UREA NITROGEN 32 mg/dl (7-20); CALCIUM 10.1 mg/dl (8.4-10.2); CARBON DIOXIDE 29 mmol/L (21-31); CHLORIDE 99 mmol/L (97-110); CREATININE 5.43 mg/dl (0.44-1.00); Estimated GFR 8 mL/min (>60); GLUCOSE 99 mg/dl (70-220); INR 0.89; POTASSIUM 4.3 mmol/L (3.5-5.1); PROTIME 12.1 Sec (11.9-14.9); PT RATIO 0.9; SODIUM 139 mmol/L (135-144)
== END 2018-07-18 12:35 | disposition home or self-care (01) ==
LOC: E/R 12:35
DX: T82.898A Other specified complication of vascular prosthetic devices, implants and grafts, initial encounter (principal); I12.0 Hypertensive chronic kidney disease with stage 5 chronic kidney disease or end stage renal disease; N18.6 End stage renal disease; E11.22 Type 2 diabetes mellitus with diabetic chronic kidney disease; Y82.9 Unspecified medical devices associated with adverse incidents; Z79.82 Long term (current) use of aspirin; Z99.2 Dependence on renal dialysis
CPT/HCPCS: 71045; 80048; 85025; 85610; 93005; 99285-25

== ENCOUNTER 2018-07-18 12:30 | Day surgery (SDC) | payer MEDICARE, OTHER ==
[2018-07-18] MEDS ORDERED: LIDOCAINE 1% (MPF) 30 ML INJ (12:35)
[2018-07-18] MEDS ORDERED: THROMBIN (BOVINE) 5,000 UNIT VIAL TP (12:35)
[2018-07-18] MEDS ORDERED: SEVOFLURANE 15 MIN (13:30)
[2018-07-18] MEDS ORDERED: EPHEDrine SULFATE 50 MG/5 ML SYG (13:30)
[2018-07-18] MEDS ORDERED: PROPOFOL 200 MG INJ (13:30)
[2018-07-18] MEDS ORDERED: ETOMIDATE 20 MG INJ (13:31)
[2018-07-18] MEDS ORDERED: LIDOCAINE 2% (SDV) 5 ML INJ (13:32)
[2018-07-18] MEDS ORDERED: FENTAnyl 50 MCG/ML VIAL (13:32)
[2018-07-18] MEDS: HEPARIN 1000 UNITS/ML 10 ML INJ (14:25)
[2018-07-18] MEDS: GELATIN SIZE 100 SPONGE (14:26)
[2018-07-18] MEDS ORDERED: CEFAZOLIN 1 GM INJ (14:32)
[2018-07-18] MEDS ORDERED: ONDANSETRON 4 MG INJ (14:36)
[2018-07-18] MEDS ORDERED: DEXAMETHASONE 4 MG/ML 5 ML INJ (14:36)
[2018-07-18] MEDS ORDERED: ONDANSETRON 4 MG INJ IV (15:00)
[2018-07-18] MEDS ORDERED: DIPHENHYDRAMINE 50 MG INJ IV (15:00)
[2018-07-18] MEDS ORDERED: ALBUTEROL 0.083% (NEB) 2.5 MG/3 ML AMP HHN (15:00)
[2018-07-18] MEDS ORDERED: hydrALAzine 20 MG INJ IV (15:00)
[2018-07-18] MEDS ORDERED: HYDROmorphONE 1 MG/5 ML IV SYRINGE IV ×2 (15:00)
[2018-07-18] MEDS ORDERED: FENTAnyl 50 MCG/ML VIAL IV ×3 (15:00)
[2018-07-18] MEDS ORDERED: MEPERIDINE 25 MG INJ IV (15:00)
[2018-07-18] MEDS ORDERED: LABETALOL HCL 20MG INJ IV (15:00)
[2018-07-18] MEDS ORDERED: OXYCODONE/ACETAMINOPHEN (5/325) TAB PO ×2 (15:00)
[2018-07-18] MEDS ORDERED: EPHEDrine SULFATE 50 MG/5 ML SYG IV (15:00)
[2018-07-18] MEDS: HYDROmorphONE 1 MG/5 ML IV SYRINGE IV (16:16)
== END 2018-07-18 17:50 | disposition home or self-care (01) ==
LOC: SDS 12:30
DX: T82.898A Other specified complication of vascular prosthetic devices, implants and grafts, initial encounter (principal); Y84.1 Kidney dialysis as the cause of abnormal reaction of the patient, or of later complication, without mention of misadventure at the time of the procedure; I12.0 Hypertensive chronic kidney disease with stage 5 chronic kidney disease or end stage renal disease; N18.6 End stage renal disease; E11.9 Type 2 diabetes mellitus without complications
CPT/HCPCS: 36830; 82962

== ENCOUNTER 2018-07-26 09:42 | Emergency (ER) | payer MEDICARE, OTHER ==
[2018-07-26 12:29] LABS: ADD MAN DIFF? NO
[2018-07-26 12:35] LABS: BASOPHILS % 0.7 % (0.0-2.0); EOSINOPHILS # 0.6 10^3/ul (0.0-0.5); EOSINOPHILS % 10.3 % (0.0-7.0); HEMATOCRIT 35.6 % (37.0-47.0); HEMOGLOBIN 11.3 g/dl (12.0-16.0); LYMPHOCYTES # 1.1 10^3/ul (0.8-2.9); LYMPHOCYTES % 18.6 % (15.0-51.0); MEAN CORPUSCULAR HGB CONC 31.7 g/dl (32.0-37.0); MEAN CORPUSCULAR VOLUME 97.8 fl (82.0-101.0); MEAN PLATELET VOLUME 9.8 fl (7.4-10.4); MONOCYTE # 0.8 10^3/ul (0.3-0.9); MONOCYTES % 13.7 % (0.0-11.0); NEUTROPHIL # 3.3 10^3/ul (1.6-7.5); NEUTROPHILS % 56.4 % (39.0-77.0); PLATELET COUNT 209 10^3/UL (140-415); RED BLOOD COUNT 3.64 10^6/ul (4.20-5.40); RED CELL DISTRIBUTION WIDTH 13.2 % (11.5-14.5)
[2018-07-26 12:35] LABS: WHITE BLOOD COUNT 5.9 10^3/ul (4.8-10.8)
[2018-07-26 12:54] LABS: INR 0.89; PROTIME 12.1 Sec (11.9-14.9); PT RATIO 0.9
[2018-07-26 12:55] LABS: ALBUMIN 4.2 g/dl (3.3-4.9); ALBUMIN/GLOBULIN RATIO 0.97; ALKALINE PHOSPHATASE 118 IU/L (42-121); ANION GAP 12 (5-13); ASPARTATE AMINO TRANSFERASE 38 IU/L (15-46); BLOOD UREA NITROGEN 52 mg/dl (7-20); CALCIUM 9.8 mg/dl (8.4-10.2); CARBON DIOXIDE 29 mmol/L (21-31); CHLORIDE 98 mmol/L (97-110); CREATININE 9.03 mg/dl (0.44-1.00); Estimated GFR 4 mL/min (>60); GLUCOSE 116 mg/dl (70-220); PARTIAL THROMBOPLASTIN TIME 39.1 Sec (23.0-35.0); SODIUM 139 mmol/L (135-144); TOTAL PROTEIN 8.5 g/dl (6.1-8.1)
[2018-07-26 13:10] LABS: ALANINE AMINOTRANSFERASE < 6 IU/L (13-69)
[2018-07-26] MEDS ORDERED: LIDOCAINE 1% (MDV) 20 ML INJ (14:44)
[2018-07-26] MEDS ORDERED: HEPARIN 1000 UNITS/ML 10 ML INJ (14:44)
[2018-07-26] MEDS ORDERED: CEFAZOLIN 1 GM/50 ML (PMX) 50 ML IVPB (14:45)
== END 2018-07-26 15:59 | disposition home or self-care (01) ==
LOC: E/R 09:42
DX: T82.9XXA Unspecified complication of cardiac and vascular prosthetic device, implant and graft, initial encounter (principal); E11.22 Type 2 diabetes mellitus with diabetic chronic kidney disease; N18.6 End stage renal disease; Y71.2 Prosthetic and other implants, materials and accessory cardiovascular devices associated with adverse incidents; Z95.0 Presence of cardiac pacemaker
CPT/HCPCS: 36558; 80053; 85025; 85610; 85730; 99284-25

== ENCOUNTER 2018-08-08 15:53 | Emergency (ER) | payer MEDICARE, OTHER ==
[2018-08-08] MEDS: BENZONATATE 100 MG CAP PO (19:55)
== END 2018-08-08 21:22 | disposition home or self-care (01) ==
LOC: E/R 15:53
DX: J06.9 Acute upper respiratory infection, unspecified (principal); I12.0 Hypertensive chronic kidney disease with stage 5 chronic kidney disease or end stage renal disease; N18.6 End stage renal disease; E11.22 Type 2 diabetes mellitus with diabetic chronic kidney disease; Z99.2 Dependence on renal dialysis
CPT/HCPCS: 71045; 99283-25

== ENCOUNTER 2018-08-11 20:31 | Inpatient (IN) | payer MEDICARE, OTHER ==
[2018-08-11] MEDS: ACETAMINOPHEN 325 MG TAB PO (20:50)
[2018-08-11] MEDS: CEFEPIME 2GM/50 ML (PMX) 50 ML IVPB (20:50)
[2018-08-11] MEDS: SODIUM CHLORIDE 0.9% 1L BAG IV* (20:50)
[2018-08-11] MEDS: VANCOMYCIN 1 GM (PMX) 250 ML IVPB (21:00)
[2018-08-11 21:27] LABS: ADD MAN DIFF? NO
[2018-08-11 21:28] LABS: WHITE BLOOD COUNT 13.8 10^3/ul (4.8-10.8)
[2018-08-11 21:28] LABS: ABNORMAL IP MESSAGE 1; BASOPHILS % 0.2 % (0.0-2.0); EOSINOPHILS # 0.1 10^3/ul (0.0-0.5); EOSINOPHILS % 0.9 % (0.0-7.0); HEMATOCRIT 35.4 % (37.0-47.0); HEMOGLOBIN 11.1 g/dl (12.0-16.0); LYMPHOCYTES # 0.7 10^3/ul (0.8-2.9); LYMPHOCYTES % 4.8 % (15.0-51.0); MEAN CORPUSCULAR HEMOGLOBIN 31.6 pg (29.0-33.0); MEAN CORPUSCULAR HGB CONC 31.4 g/dl (32.0-37.0); MEAN CORPUSCULAR VOLUME 100.9 fl (82.0-101.0); MEAN PLATELET VOLUME 9.9 fl (7.4-10.4); MONOCYTE # 1.8 10^3/ul (0.3-0.9); MONOCYTES % 12.9 % (0.0-11.0); NEUTROPHIL # 11.1 10^3/ul (1.6-7.5); NEUTROPHILS % 80.6 % (39.0-77.0); PLATELET COUNT 198 10^3/UL (140-415); RED BLOOD COUNT 3.51 10^6/ul (4.20-5.40); RED CELL DISTRIBUTION WIDTH 15.3 % (11.5-14.5)
[2018-08-11 21:32] LABS: POSITIVE DIFF @See below
[2018-08-11 21:41] LABS: INR 0.99; PROTIME 13.2 Sec (11.9-14.9)
[2018-08-11 21:42] LABS: PARTIAL THROMBOPLASTIN TIME 34.6 Sec (23.0-35.0)
[2018-08-11 21:45] LABS: LACTIC ACID 1.4 mmol/L (0.5-2.0)
[2018-08-11 21:46] LABS: ALBUMIN 4.4 g/dl (3.3-4.9); ALBUMIN/GLOBULIN RATIO 1.04; ALKALINE PHOSPHATASE 138 IU/L (42-121); ANION GAP 16 (5-13); ASPARTATE AMINO TRANSFERASE 26 IU/L (15-46); BILIRUBIN,INDIRECT 0.1 mg/dl (0-1.1); BILIRUBIN,TOTAL 0.1 mg/dl (0.2-1.3); BLOOD UREA NITROGEN 62 mg/dl (7-20); CALCIUM 9.6 mg/dl (8.4-10.2); CARBON DIOXIDE 22 mmol/L (21-31); CHLORIDE 97 mmol/L (97-110); CREATININE 9.44 mg/dl (0.44-1.00); Estimated GFR 4 mL/min (>60); GLUCOSE 174 mg/dl (70-220); POTASSIUM 4.8 mmol/L (3.5-5.1); SODIUM 135 mmol/L (135-144); TOTAL PROTEIN 8.6 g/dl (6.1-8.1)
[2018-08-11 21:48] LABS: ALANINE AMINOTRANSFERASE < 6 IU/L (13-69)
[2018-08-11] MEDS: ONDANSETRON 4 MG INJ IV (21:51)
[2018-08-11 21:57] LABS: TROPONIN-I 0.028 ng/ml (0.000-0.120)
[2018-08-11 23:17] LABS: LACTIC ACID 1.2 mmol/L (0.5-2.0)
[2018-08-11] MEDS ORDERED: ONDANSETRON 4 MG INJ IV (23:30)
[2018-08-11] MEDS ORDERED: ACETAMINOPHEN 325 MG TAB PO (23:30)
[2018-08-12 02:35] LABS: LACTIC ACID 1.7 mmol/L (0.5-2.0)
[2018-08-12] MEDS ORDERED: ACETAMINOPHEN 325 MG TAB PO (05:30)
[2018-08-12] MEDS ORDERED: ONDANSETRON 4 MG INJ IV (05:30)
[2018-08-12] MEDS ORDERED: VANCOMYCIN IV PER PHARMACY XX (05:30)
[2018-08-12] MEDS: PANTOPRAZOLE 40 MG INJ IV (05:56)
[2018-08-12] MEDS: VANCOMYCIN 1 GM 250 ML IVPB (06:06)
[2018-08-12] MEDS: INSULIN ASPART [NOVOLOG] 3 ML PEN SC ×4 (07:46→20:09)
[2018-08-12] MEDS: CEFEPIME 1GM/50 ML (PMX) 50 ML IVPB (08:55)
[2018-08-12] MEDS: ALBUTEROL/IPRATROPIUM (NEB) 3 ML AMP HHN ×4 (09:41→21:18)
[2018-08-12] MEDS ORDERED: HEPARIN 1000 UNITS/ML 10 ML INJ CATHETER (12:00)
[2018-08-12] MEDS: LINAGLIPTIN 5 MG TABLET PO (12:46)
[2018-08-12] MEDS: AZITHROMYCIN 250 MG TAB PO (12:46)
[2018-08-12] MEDS: CALCIUM ACETATE 667 MG CAP PO ×2 (12:46→17:41)
[2018-08-12] MEDS: OSELTAMIVIR 30 MG CAP PO (14:07)
[2018-08-12] MEDS: ACCU-CHEK XX ×2 (17:30→20:09)
[2018-08-12] MEDS: BENZONATATE 100 MG CAP PO (20:08)
[2018-08-13] MEDS: ALBUTEROL/IPRATROPIUM (NEB) 3 ML AMP HHN ×6 (01:25→21:38)
[2018-08-13] MEDS: PANTOPRAZOLE (EC) 40 MG TAB PO (05:25)
[2018-08-13] MEDS: ACCU-CHEK XX ×4 (06:18→22:37)
[2018-08-13 06:50] LABS: ADD MAN DIFF? NO
[2018-08-13 06:56] LABS: WHITE BLOOD COUNT 10.8 10^3/ul (4.8-10.8)
[2018-08-13 06:56] LABS: ABNORMAL IP MESSAGE 1; BASOPHILS % 0.2 % (0.0-2.0); EOSINOPHILS # 0.2 10^3/ul (0.0-0.5); EOSINOPHILS % 1.9 % (0.0-7.0); HEMOGLOBIN 9.5 g/dl (12.0-16.0); MEAN CORPUSCULAR HGB CONC 31.7 g/dl (32.0-37.0); MONOCYTE # 1.7 10^3/ul (0.3-0.9); MONOCYTES % 15.9 % (0.0-11.0); NEUTROPHIL # 7.8 10^3/ul (1.6-7.5); NEUTROPHILS % 72.3 % (39.0-77.0); PLATELET COUNT 199 10^3/UL (140-415); RED BLOOD COUNT 3.06 10^6/ul (4.20-5.40)
[2018-08-13 06:59] LABS: POSITIVE DIFF @See below
[2018-08-13 07:24] LABS: ALANINE AMINOTRANSFERASE 8 IU/L (13-69); ALBUMIN 3.5 g/dl (3.3-4.9); ALBUMIN/GLOBULIN RATIO 0.92; ALKALINE PHOSPHATASE 81 IU/L (42-121); ANION GAP 16 (5-13); ASPARTATE AMINO TRANSFERASE 21 IU/L (15-46); BLOOD UREA NITROGEN 81 mg/dl (7-20); CALCIUM 8.9 mg/dl (8.4-10.2); CARBON DIOXIDE 21 mmol/L (21-31); CHLORIDE 98 mmol/L (97-110); CREATININE 11.81 mg/dl (0.44-1.00); Estimated GFR 3 mL/min (>60); GLUCOSE 115 mg/dl (70-220); POTASSIUM 4.7 mmol/L (3.5-5.1); SODIUM 135 mmol/L (135-144); TOTAL PROTEIN 7.3 g/dl (6.1-8.1)
[2018-08-13] MEDS: INSULIN ASPART [NOVOLOG] 3 ML PEN SC ×4 (08:00→20:40)
[2018-08-13] MEDS: CALCIUM ACETATE 667 MG CAP PO ×3 (08:13→17:31)
[2018-08-13] MEDS: LINAGLIPTIN 5 MG TABLET PO (08:13)
[2018-08-13] MEDS: CEFEPIME 1GM/50 ML (PMX) 50 ML IVPB (08:13)
[2018-08-13] MEDS: AZITHROMYCIN 250 MG TAB PO (08:13)
[2018-08-13 11:51] LABS: HEPATITIS B SURFACE ANTIGEN NEGATIVE (NEGATIVE)
[2018-08-13] MEDS: HEPARIN 1000 UNITS/ML 10 ML INJ CATHETER (13:18)
[2018-08-13] MEDS: HEPARIN 5,000 UNIT/1 ML VIAL SC (20:49)
[2018-08-14] MEDS: ALBUTEROL/IPRATROPIUM (NEB) 3 ML AMP HHN ×6 (01:19→20:59)
[2018-08-14 05:27] LABS: ADD MAN DIFF? NO
[2018-08-14] MEDS: PANTOPRAZOLE (EC) 40 MG TAB PO (05:30)
[2018-08-14 05:37] LABS: BASOPHILS % 0.4 % (0.0-2.0); EOSINOPHILS # 0.3 10^3/ul (0.0-0.5); EOSINOPHILS % 4.5 % (0.0-7.0); HEMATOCRIT 30.9 % (37.0-47.0); HEMOGLOBIN 9.5 g/dl (12.0-16.0); LYMPHOCYTES # 0.9 10^3/ul (0.8-2.9); LYMPHOCYTES % 11.4 % (15.0-51.0); MEAN CORPUSCULAR HEMOGLOBIN 31.1 pg (29.0-33.0); MEAN CORPUSCULAR HGB CONC 30.7 g/dl (32.0-37.0); MEAN CORPUSCULAR VOLUME 101.3 fl (82.0-101.0); MEAN PLATELET VOLUME 10.2 fl (7.4-10.4); MONOCYTE # 1.4 10^3/ul (0.3-0.9); MONOCYTES % 18.4 % (0.0-11.0); NEUTROPHIL # 4.9 10^3/ul (1.6-7.5); NEUTROPHILS % 64.5 % (39.0-77.0); PLATELET COUNT 216 10^3/UL (140-415); RED BLOOD COUNT 3.05 10^6/ul (4.20-5.40); RED CELL DISTRIBUTION WIDTH 15.2 % (11.5-14.5)
[2018-08-14 05:37] LABS: WHITE BLOOD COUNT 7.5 10^3/ul (4.8-10.8)
[2018-08-14 06:05] LABS: PHOSPHORUS 4.3 mg/dl (2.5-4.9)
[2018-08-14 06:05] LABS: MAGNESIUM 2.2 mg/dl (1.7-2.5)
[2018-08-14 06:12] LABS: ANION GAP 13 (5-13); BLOOD UREA NITROGEN 48 mg/dl (7-20); CALCIUM 9.2 mg/dl (8.4-10.2); CARBON DIOXIDE 27 mmol/L (21-31); CHLORIDE 97 mmol/L (97-110); CREATININE 8.84 mg/dl (0.44-1.00); Estimated GFR 4 mL/min (>60); GLUCOSE 116 mg/dl (70-220); POTASSIUM 4.8 mmol/L (3.5-5.1); SODIUM 137 mmol/L (135-144)
[2018-08-14 06:16] LABS: VANCOMYCIN,RANDOM 10.3 ug/ml
[2018-08-14] MEDS: ACCU-CHEK XX ×4 (07:00→20:44)
[2018-08-14] MEDS: CALCIUM ACETATE 667 MG CAP PO ×3 (08:00→17:32)
[2018-08-14] MEDS: INSULIN ASPART [NOVOLOG] 3 ML PEN SC ×4 (08:00→20:42)
[2018-08-14] MEDS: LINAGLIPTIN 5 MG TABLET PO (10:20)
[2018-08-14] MEDS: AZITHROMYCIN 250 MG TAB PO (10:20)
[2018-08-14] MEDS: CEFEPIME 1GM/50 ML (PMX) 50 ML IVPB (10:21)
[2018-08-14] MEDS: HEPARIN 5,000 UNIT/1 ML VIAL SC ×2 (10:24→20:43)
[2018-08-14] MEDS ORDERED: HEPARIN 1000 UNITS/ML 10 ML INJ CATHETER (11:00)
[2018-08-14] MEDS ORDERED: VANCOMYCIN 1 GM 250 ML IVPB (14:00)
[2018-08-15] MEDS: ALBUTEROL/IPRATROPIUM (NEB) 3 ML AMP HHN ×6 (00:31→20:18)
[2018-08-15] MEDS: PANTOPRAZOLE (EC) 40 MG TAB PO (05:58)
[2018-08-15] MEDS: ACCU-CHEK XX ×4 (07:30→21:00)
[2018-08-15] MEDS: CALCIUM ACETATE 667 MG CAP PO ×3 (07:35→17:36)
[2018-08-15] MEDS: INSULIN ASPART [NOVOLOG] 3 ML PEN SC ×4 (08:00→21:00)
[2018-08-15] MEDS: HEPARIN 5,000 UNIT/1 ML VIAL SC ×2 (08:38→21:08)
[2018-08-15] MEDS: AZITHROMYCIN 250 MG TAB PO (11:49)
[2018-08-15] MEDS: CEFEPIME 1GM/50 ML (PMX) 50 ML IVPB (11:49)
[2018-08-15] MEDS: LINAGLIPTIN 5 MG TABLET PO (11:50)
[2018-08-15 12:13] LABS: ADD MAN DIFF? NO
[2018-08-15] MEDS ORDERED: GENTAMICIN IV PER PHARMACY XX (12:30)
[2018-08-15 12:45] LABS: ANION GAP 17 (5-13); BLOOD UREA NITROGEN 34 mg/dl (7-20); CALCIUM 9.2 mg/dl (8.4-10.2); CARBON DIOXIDE 26 mmol/L (21-31); CHLORIDE 95 mmol/L (97-110); CREATININE 7.02 mg/dl (0.44-1.00); Estimated GFR 6 mL/min (>60); GLUCOSE 92 mg/dl (70-220); POTASSIUM 4.5 mmol/L (3.5-5.1); SODIUM 138 mmol/L (135-144)
[2018-08-15 12:46] LABS: PHOSPHORUS 3.5 mg/dl (2.5-4.9)
[2018-08-15 12:46] LABS: MAGNESIUM 1.8 mg/dl (1.7-2.5)
[2018-08-15] MEDS: LEVOFLOXACIN 250 MG TAB PO (13:35)
[2018-08-15 14:18] LABS: WHITE BLOOD COUNT 8.1 10^3/ul (4.8-10.8)
[2018-08-15 14:18] LABS: BASOPHILS % 0.5 % (0.0-2.0); EOSINOPHILS # 0.4 10^3/ul (0.0-0.5); EOSINOPHILS % 5.5 % (0.0-7.0); HEMATOCRIT 35.4 % (37.0-47.0); LYMPHOCYTES % 11.9 % (15.0-51.0); MEAN CORPUSCULAR HEMOGLOBIN 31.3 pg (29.0-33.0); MEAN CORPUSCULAR HGB CONC 31.1 g/dl (32.0-37.0); MEAN CORPUSCULAR VOLUME 100.6 fl (82.0-101.0); MEAN PLATELET VOLUME 9.9 fl (7.4-10.4); MONOCYTE # 1.4 10^3/ul (0.3-0.9); MONOCYTES % 17.7 % (0.0-11.0); NEUTROPHIL # 5.1 10^3/ul (1.6-7.5); NEUTROPHILS % 63.4 % (39.0-77.0); PLATELET COUNT 229 10^3/UL (140-415); RED BLOOD COUNT 3.52 10^6/ul (4.20-5.40); RED CELL DISTRIBUTION WIDTH 15.1 % (11.5-14.5)
[2018-08-15] MEDS: OSELTAMIVIR 30 MG CAP PO (14:19)
[2018-08-15] MEDS: GENTAMICIN 150 MG in SOD CHLORIDE 0.9% 100 ML IVPB (17:08)
[2018-08-16] MEDS: ALBUTEROL/IPRATROPIUM (NEB) 3 ML AMP HHN ×4 (00:47→09:38)
[2018-08-16] MEDS: PANTOPRAZOLE (EC) 40 MG TAB PO (06:19)
[2018-08-16] MEDS: INSULIN ASPART [NOVOLOG] 3 ML PEN SC ×2 (08:00→12:00)
[2018-08-16] MEDS: CALCIUM ACETATE 667 MG CAP PO ×2 (08:01→12:32)
[2018-08-16] MEDS: ACCU-CHEK XX ×2 (08:01→12:24)
[2018-08-16] MEDS: LINAGLIPTIN 5 MG TABLET PO (08:09)
[2018-08-16] MEDS: HEPARIN 5,000 UNIT/1 ML VIAL SC (08:09)
[2018-08-16] MEDS ORDERED: GENTAMICIN 100 MG/50 ML NS IVPB (15:00)
[2018-08-17 12:31] LABS: PROCALCITONIN 2.19 ng/mL (<0.10)
== END 2018-08-16 13:05 | disposition home or self-care (01) | DRG 871 ==
LOC: 6WM 23:43 → E/R 20:31 → PP2 08-14 14:40
PROC: 5A1D70Z Performance of Urinary Filtration, Intermittent, Less than 6 Hours Per Day (ICD-10-PCS; principal; 2018-08-14)
PROC: 5A1D70Z Performance of Urinary Filtration, Intermittent, Less than 6 Hours Per Day (ICD-10-PCS; 2018-08-14)
DX: A41.9 Sepsis, unspecified organism (principal); J18.9 Pneumonia, unspecified organism; N18.6 End stage renal disease; J96.01 Acute respiratory failure with hypoxia; I13.2 Hypertensive heart and chronic kidney disease with heart failure and with stage 5 chronic kidney disease, or end stage renal disease; I44.2 Atrioventricular block, complete; E11.22 Type 2 diabetes mellitus with diabetic chronic kidney disease; D69.6 Thrombocytopenia, unspecified; E66.01 Morbid (severe) obesity due to excess calories; I50.9 Heart failure, unspecified; D63.1 Anemia in chronic kidney disease; E78.5 Hyperlipidemia, unspecified; I25.10 Atherosclerotic heart disease of native coronary artery without angina pectoris; Z99.2 Dependence on renal dialysis; Z68.30 Body mass index [BMI] 30.0-30.9, adult; Z79.4 Long term (current) use of insulin
CPT/HCPCS: 36415; 71045; 71250; 80048; 80053; 80202; 82962; 83605; 83735; 84100; 84145; 84484; 85025; 85610; 85730; 87040; 87070; 87081; 87340; 87400; 90935; 93005; 94640; 94664; 96374; 96375; 99291-25

== ENCOUNTER 2018-09-11 08:22 | Emergency (ER) | payer MEDICARE, OTHER ==
[2018-09-11 09:18] LABS: ADD MAN DIFF? NO
[2018-09-11 09:22] LABS: BASOPHILS % 0.5 % (0.0-2.0); EOSINOPHILS # 0.4 10^3/ul (0.0-0.5); EOSINOPHILS % 6.3 % (0.0-7.0); HEMATOCRIT 45.6 % (37.0-47.0); HEMOGLOBIN 14.3 g/dl (12.0-16.0); LYMPHOCYTES # 0.9 10^3/ul (0.8-2.9); LYMPHOCYTES % 14.4 % (15.0-51.0); MEAN CORPUSCULAR HEMOGLOBIN 33.3 pg (29.0-33.0); MEAN CORPUSCULAR HGB CONC 31.4 g/dl (32.0-37.0); MEAN CORPUSCULAR VOLUME 106.3 fl (82.0-101.0); MEAN PLATELET VOLUME 10.9 fl (7.4-10.4); MONOCYTE # 0.8 10^3/ul (0.3-0.9); MONOCYTES % 13.1 % (0.0-11.0); NEUTROPHIL # 4.2 10^3/ul (1.6-7.5); NEUTROPHILS % 65.4 % (39.0-77.0); NUCLEATED RED BLOOD CELLS% 0.5 /100WBC (0.0-0.0); PLATELET COUNT 140 10^3/UL (140-415); RED BLOOD COUNT 4.29 10^6/ul (4.20-5.40); RED CELL DISTRIBUTION WIDTH 18.7 % (11.5-14.5)
[2018-09-11 09:22] LABS: WHITE BLOOD COUNT 6.4 10^3/ul (4.8-10.8)
[2018-09-11 10:18] LABS: ALANINE AMINOTRANSFERASE 17 IU/L (13-69); ALBUMIN 4.4 g/dl (3.3-4.9); ALBUMIN/GLOBULIN RATIO 1.15; ALKALINE PHOSPHATASE 127 IU/L (42-121); ANION GAP 12 (5-13); ASPARTATE AMINO TRANSFERASE 29 IU/L (15-46); BILIRUBIN,INDIRECT 0.2 mg/dl (0-1.1); BILIRUBIN,TOTAL 0.2 mg/dl (0.2-1.3); BLOOD UREA NITROGEN 56 mg/dl (7-20); CALCIUM 9.5 mg/dl (8.4-10.2); CARBON DIOXIDE 27 mmol/L (21-31); CHLORIDE 99 mmol/L (97-110); CREATININE 10.53 mg/dl (0.44-1.00); Estimated GFR 4 mL/min (>60); GLUCOSE 120 mg/dl (70-220); SODIUM 138 mmol/L (135-144); TOTAL PROTEIN 8.2 g/dl (6.1-8.1)
[2018-09-11 10:28] LABS: POTASSIUM 6.7 mmol/L (3.5-5.1); TROPONIN-I < 0.012 ng/ml (0.000-0.120)
== END 2018-09-11 11:07 | disposition home or self-care (01) ==
LOC: E/R 08:22
DX: R53.1 Weakness (principal); E11.22 Type 2 diabetes mellitus with diabetic chronic kidney disease; N18.6 End stage renal disease; I12.0 Hypertensive chronic kidney disease with stage 5 chronic kidney disease or end stage renal disease; Z79.84 Long term (current) use of oral hypoglycemic drugs; Z85.43 Personal history of malignant neoplasm of ovary; Z99.2 Dependence on renal dialysis
CPT/HCPCS: 36415; 71045; 80053; 83605; 84484; 85025; 87040-91; 93005; 99285-25

== ENCOUNTER 2018-10-30 11:59 | Emergency (ER) | payer MEDICARE, OTHER ==
[2018-10-30] MEDS: ONDANSETRON (ODT) 4 MG TAB ODT (13:02)
[2018-10-30 13:38] LABS: ADD MAN DIFF? NO
[2018-10-30 13:39] LABS: WHITE BLOOD COUNT 9.5 10^3/ul (4.8-10.8)
[2018-10-30 13:39] LABS: BASOPHILS % 0.3 % (0.0-2.0); EOSINOPHILS # 0.6 10^3/ul (0.0-0.5); EOSINOPHILS % 6.2 % (0.0-7.0); HEMATOCRIT 39.4 % (37.0-47.0); HEMOGLOBIN 12.5 g/dl (12.0-16.0); LYMPHOCYTES # 0.9 10^3/ul (0.8-2.9); MEAN CORPUSCULAR HEMOGLOBIN 31.4 pg (29.0-33.0); MEAN CORPUSCULAR HGB CONC 31.7 g/dl (32.0-37.0); MEAN PLATELET VOLUME 11.4 fl (7.4-10.4); MONOCYTE # 1.1 10^3/ul (0.3-0.9); MONOCYTES % 11.8 % (0.0-11.0); NEUTROPHIL # 6.9 10^3/ul (1.6-7.5); NEUTROPHILS % 72.5 % (39.0-77.0); PLATELET COUNT 165 10^3/UL (140-415); RED BLOOD COUNT 3.98 10^6/ul (4.20-5.40); RED CELL DISTRIBUTION WIDTH 14.4 % (11.5-14.5)
[2018-10-30 13:56] LABS: ALANINE AMINOTRANSFERASE 15 IU/L (13-69); ALBUMIN 4.5 g/dl (3.3-4.9); ALBUMIN/GLOBULIN RATIO 1.02; ALKALINE PHOSPHATASE 95 IU/L (42-121); ANION GAP 15 (5-13); ASPARTATE AMINO TRANSFERASE 36 IU/L (15-46); BILIRUBIN,INDIRECT 0.3 mg/dl (0-1.1); BILIRUBIN,TOTAL 0.3 mg/dl (0.2-1.3); BLOOD UREA NITROGEN 54 mg/dl (7-20); CARBON DIOXIDE 25 mmol/L (21-31); CHLORIDE 99 mmol/L (97-110); CREATININE 8.53 mg/dl (0.44-1.00); Estimated GFR 5 mL/min (>60); GLUCOSE 144 mg/dl (70-220); POTASSIUM 5.3 mmol/L (3.5-5.1); SODIUM 139 mmol/L (135-144); TOTAL PROTEIN 8.9 g/dl (6.1-8.1)
== END 2018-10-30 15:31 | disposition home or self-care (01) ==
LOC: FTE 11:59
DX: R19.7 Diarrhea, unspecified (principal); I10 Essential (primary) hypertension; E11.9 Type 2 diabetes mellitus without complications; Z85.43 Personal history of malignant neoplasm of ovary; Z95.0 Presence of cardiac pacemaker
CPT/HCPCS: 80053; 83605; 85025; 99283

== ENCOUNTER 2018-11-11 16:28 | Emergency (ER) | payer MEDICARE, OTHER ==
[2018-11-11] MEDS: LOPERAMIDE 2 MG CAP PO (18:25)
[2018-11-11 18:32] LABS: ADD MAN DIFF? NO
[2018-11-11 18:35] LABS: WHITE BLOOD COUNT 13.4 10^3/ul (4.8-10.8)
[2018-11-11 18:36] LABS: BASOPHILS % 0.3 % (0.0-2.0); EOSINOPHILS # 0.5 10^3/ul (0.0-0.5); EOSINOPHILS % 3.4 % (0.0-7.0); HEMATOCRIT 33.6 % (37.0-47.0); HEMOGLOBIN 10.7 g/dl (12.0-16.0); LYMPHOCYTES # 1.4 10^3/ul (0.8-2.9); LYMPHOCYTES % 10.6 % (15.0-51.0); MEAN CORPUSCULAR HEMOGLOBIN 30.8 pg (29.0-33.0); MEAN CORPUSCULAR HGB CONC 31.8 g/dl (32.0-37.0); MEAN CORPUSCULAR VOLUME 96.8 fl (82.0-101.0); MEAN PLATELET VOLUME 10.2 fl (7.4-10.4); MONOCYTE # 1.3 10^3/ul (0.3-0.9); MONOCYTES % 9.4 % (0.0-11.0); NEUTROPHIL # 10.1 10^3/ul (1.6-7.5); NEUTROPHILS % 75.6 % (39.0-77.0); PLATELET COUNT 172 10^3/UL (140-415); RED BLOOD COUNT 3.47 10^6/ul (4.20-5.40); RED CELL DISTRIBUTION WIDTH 14.3 % (11.5-14.5)
[2018-11-11 18:59] LABS: ALANINE AMINOTRANSFERASE 23 IU/L (13-69); ALBUMIN 3.9 g/dl (3.3-4.9); ALKALINE PHOSPHATASE 105 IU/L (42-121); ANION GAP 13 (5-13); ASPARTATE AMINO TRANSFERASE 43 IU/L (15-46); BILIRUBIN,INDIRECT 0.2 mg/dl (0-1.1); BILIRUBIN,TOTAL 0.2 mg/dl (0.2-1.3); BLOOD UREA NITROGEN 33 mg/dl (7-20); CALCIUM 8.8 mg/dl (8.4-10.2); CARBON DIOXIDE 24 mmol/L (21-31); CHLORIDE 100 mmol/L (97-110); CREATININE 9.77 mg/dl (0.44-1.00); Estimated GFR 4 mL/min (>60); GLUCOSE 131 mg/dl (70-220); LIPASE 459 U/L (23-300); POTASSIUM 4.7 mmol/L (3.5-5.1); SODIUM 137 mmol/L (135-144); TOTAL PROTEIN 8.2 g/dl (6.1-8.1)
[2018-11-11] MEDS ORDERED: ONDANSETRON 4 MG INJ IV (19:39)
[2018-11-11] MEDS: ONDANSETRON (ODT) 4 MG TAB ODT (20:10)
== END 2018-11-11 20:11 | disposition home or self-care (01) ==
LOC: E/R 16:28
DX: R19.7 Diarrhea, unspecified (principal); N18.6 End stage renal disease; I12.0 Hypertensive chronic kidney disease with stage 5 chronic kidney disease or end stage renal disease; D64.9 Anemia, unspecified; E11.22 Type 2 diabetes mellitus with diabetic chronic kidney disease; I25.10 Atherosclerotic heart disease of native coronary artery without angina pectoris; Z99.2 Dependence on renal dialysis; Z85.43 Personal history of malignant neoplasm of ovary; Z79.84 Long term (current) use of oral hypoglycemic drugs
CPT/HCPCS: 36415; 80053; 82962; 83690; 85025; 99283

== ENCOUNTER 2018-11-18 14:12 | Emergency (ER) | payer MEDICARE, OTHER | END 2018-11-18 16:56 | disposition home or self-care (01) | LOC: FTE 14:12 | DX: B00.9 Herpesviral infection, unspecified (principal); E11.22 Type 2 diabetes mellitus with diabetic chronic kidney disease; N18.6 End stage renal disease; I12.0 Hypertensive chronic kidney disease with stage 5 chronic kidney disease or end stage renal disease; Z85.43 Personal history of malignant neoplasm of ovary; Z99.2 Dependence on renal dialysis | CPT/HCPCS: 99283 ==

== ENCOUNTER 2018-11-20 09:11 | Emergency (ER) | payer MEDICARE, OTHER | END 2018-11-20 11:09 | disposition home or self-care (01) | LOC: E/R 09:11 | DX: S00.81XA Abrasion of other part of head, initial encounter (principal); L03.211 Cellulitis of face; I12.0 Hypertensive chronic kidney disease with stage 5 chronic kidney disease or end stage renal disease; N18.6 End stage renal disease; E11.22 Type 2 diabetes mellitus with diabetic chronic kidney disease; W20.8XXA Other cause of strike by thrown, projected or falling object, initial encounter; Y92.9 Unspecified place or not applicable; Z99.2 Dependence on renal dialysis; Z85.43 Personal history of malignant neoplasm of ovary | CPT/HCPCS: 70450; 99284-25 ==

== ENCOUNTER 2018-12-04 23:27 | Inpatient (IN) | payer MEDICARE, OTHER ==
[2018-12-05 00:46] LABS: ADD MAN DIFF? NO
[2018-12-05 00:48] LABS: BASOPHILS % 0.3 % (0.0-2.0); EOSINOPHILS # 0.4 10^3/ul (0.0-0.5); EOSINOPHILS % 3.3 % (0.0-7.0); HEMATOCRIT 31.1 % (37.0-47.0); HEMOGLOBIN 9.8 g/dl (12.0-16.0); LYMPHOCYTES # 1.3 10^3/ul (0.8-2.9); LYMPHOCYTES % 11.8 % (15.0-51.0); MEAN CORPUSCULAR HEMOGLOBIN 30.8 pg (29.0-33.0); MEAN CORPUSCULAR HGB CONC 31.5 g/dl (32.0-37.0); MEAN CORPUSCULAR VOLUME 97.8 fl (82.0-101.0); MEAN PLATELET VOLUME 10.1 fl (7.4-10.4); MONOCYTE # 1.4 10^3/ul (0.3-0.9); MONOCYTES % 12.6 % (0.0-11.0); NEUTROPHIL # 7.9 10^3/ul (1.6-7.5); NEUTROPHILS % 71.4 % (39.0-77.0); NUCLEATED RED BLOOD CELLS # 0.1 10^3/ul (0.0-0.0); NUCLEATED RED BLOOD CELLS% 0.6 /100WBC (0.0-0.0); PLATELET COUNT 262 10^3/UL (140-415); RED BLOOD COUNT 3.18 10^6/ul (4.20-5.40); RED CELL DISTRIBUTION WIDTH 15.7 % (11.5-14.5)
[2018-12-05 01:06] LABS: ALANINE AMINOTRANSFERASE 13 IU/L (13-69); ALBUMIN 3.8 g/dl (3.3-4.9); ALBUMIN/GLOBULIN RATIO 0.82; ALKALINE PHOSPHATASE 59 IU/L (42-121); ANION GAP 10 (5-13); ASPARTATE AMINO TRANSFERASE 30 IU/L (15-46); BILIRUBIN,INDIRECT 0.4 mg/dl (0-1.1); BILIRUBIN,TOTAL 0.4 mg/dl (0.2-1.3); BLOOD UREA NITROGEN 43 mg/dl (7-20); CARBON DIOXIDE 28 mmol/L (21-31); CHLORIDE 99 mmol/L (97-110); Estimated GFR 5 mL/min (>60); GLUCOSE 104 mg/dl (70-220); POTASSIUM 4.3 mmol/L (3.5-5.1); SODIUM 137 mmol/L (135-144); TOTAL PROTEIN 8.4 g/dl (6.1-8.1)
[2018-12-05 01:08] LABS: INR 0.97
[2018-12-05 01:09] LABS: PARTIAL THROMBOPLASTIN TIME 35.7 Sec (23.0-35.0)
[2018-12-05 01:18] LABS: TROPONIN-I 0.026 ng/ml (0.000-0.120)
[2018-12-05 01:34] LABS: ACETAMINOPHEN < 10.0 ug/ml (10.0-30.0); ETHANOL < 10.0 mg/dl (0-0); SALICYLATE < 1.0 mg/dl (5.0-30.0)
[2018-12-05] MEDS ORDERED: ONDANSETRON 4 MG INJ IV (03:30)
[2018-12-05] MEDS ORDERED: ACETAMINOPHEN 325 MG TAB PO (03:30)
[2018-12-05] MEDS: SOD CHLORIDE 0.9% 500 ML IV (03:41)
[2018-12-05] MEDS: CEFTRIAXONE 1 GM/50 ML (PMX) 50 ML IVPB (03:41)
[2018-12-05 03:45] LABS: LACTIC ACID 1.6 mmol/L (0.5-2.0)
[2018-12-05] MEDS: AZITHROMYCIN 500MG/NS (PMX) 250 ML IV (04:36)
[2018-12-05 06:00] LABS: LACTIC ACID 1.6 mmol/L (0.5-2.0)
[2018-12-05] MEDS: CEFTRIAXONE 1 GM INJ IM (09:30)
[2018-12-05] MEDS ORDERED: ONDANSETRON (ODT) 4 MG TAB ODT (10:00)
[2018-12-05] MEDS: AZITHROMYCIN 500 MG TAB PO (10:44)
[2018-12-05] MEDS: ACCU-CHEK XX ×3 (12:21→21:00)
[2018-12-05] MEDS: CALCIUM ACETATE 667 MG CAP PO ×2 (14:30→17:55)
[2018-12-05] MEDS: valACYclovir 500 MG TAB PO ×2 (14:30→22:59)
[2018-12-05 17:34] LABS: HEPATITIS B SURFACE ANTIGEN NEGATIVE (NEGATIVE)
[2018-12-05 17:52] LABS: HEPATITIS B SURFACE ANTIBODY POSITIVE (NEGATIVE)
[2018-12-05] MEDS ORDERED: HYDROCODONE/APAP (5/325) TAB PO (18:00)
[2018-12-05] MEDS: INSULIN ASPART [NOVOLOG] 3 ML PEN SC (21:00)
[2018-12-05] MEDS: GABAPENTIN 100 MG CAP PO (22:59)
[2018-12-06] MEDS: ACCU-CHEK XX ×5 (01:05→21:00)
[2018-12-06] MEDS: INSULIN ASPART [NOVOLOG] 3 ML PEN SC ×4 (07:55→21:00)
[2018-12-06] MEDS: AZITHROMYCIN 500 MG TAB PO (08:18)
[2018-12-06] MEDS: CALCIUM ACETATE 667 MG CAP PO ×3 (08:19→17:36)
[2018-12-06] MEDS: FOLIC ACID 1 MG TAB PO (08:19)
[2018-12-06] MEDS: DOCUSATE SODIUM 100 MG CAP PO (08:19)
[2018-12-06] MEDS: GABAPENTIN 100 MG CAP PO ×2 (08:19→22:14)
[2018-12-06] MEDS: CLOPIDOGREL 75 MG TAB PO (08:19)
[2018-12-06] MEDS: LINAGLIPTIN 5 MG TABLET PO (08:19)
[2018-12-06] MEDS: METOPROLOL (XL) 50 MG TAB PO (08:20)
[2018-12-06] MEDS: CEFTRIAXONE 1 GM INJ IM (08:20)
[2018-12-06] MEDS: valACYclovir 500 MG TAB PO ×3 (08:20→22:14)
[2018-12-06] MEDS: PANTOPRAZOLE (EC) 40 MG TAB PO (14:30)
[2018-12-06] MEDS: HEPARIN 5,000 UNIT/1 ML VIAL SC (22:19)
[2018-12-07] MEDS: ACCU-CHEK XX ×5 (02:00→21:00)
[2018-12-07] MEDS: PANTOPRAZOLE (EC) 40 MG TAB PO (05:51)
[2018-12-07 06:03] LABS: ADD MAN DIFF? NO
[2018-12-07 06:08] LABS: WHITE BLOOD COUNT 8.4 10^3/ul (4.8-10.8)
[2018-12-07 06:08] LABS: BASOPHILS % 0.4 % (0.0-2.0); EOSINOPHILS # 0.2 10^3/ul (0.0-0.5); EOSINOPHILS % 1.9 % (0.0-7.0); HEMATOCRIT 31.8 % (37.0-47.0); HEMOGLOBIN 10.1 g/dl (12.0-16.0); LYMPHOCYTES # 1.2 10^3/ul (0.8-2.9); MEAN CORPUSCULAR HEMOGLOBIN 31.3 pg (29.0-33.0); MEAN CORPUSCULAR HGB CONC 31.8 g/dl (32.0-37.0); MEAN CORPUSCULAR VOLUME 98.5 fl (82.0-101.0); MEAN PLATELET VOLUME 10.2 fl (7.4-10.4); MONOCYTE # 1.4 10^3/ul (0.3-0.9); MONOCYTES % 16.3 % (0.0-11.0); NEUTROPHIL # 5.5 10^3/ul (1.6-7.5); NEUTROPHILS % 65.6 % (39.0-77.0); NUCLEATED RED BLOOD CELLS% 0.4 /100WBC (0.0-0.0); PLATELET COUNT 280 10^3/UL (140-415); RED BLOOD COUNT 3.23 10^6/ul (4.20-5.40); RED CELL DISTRIBUTION WIDTH 16.5 % (11.5-14.5)
[2018-12-07 06:38] LABS: HEMOGLOBIN A1C 5.8 % (0-5.9)
[2018-12-07 07:03] LABS: ANION GAP 10 (5-13); BLOOD UREA NITROGEN 47 mg/dl (7-20); CALCIUM 9.2 mg/dl (8.4-10.2); CARBON DIOXIDE 28 mmol/L (21-31); CHLORIDE 98 mmol/L (97-110); CREATININE 8.24 mg/dl (0.44-1.00); Estimated GFR 5 mL/min (>60); GLUCOSE 122 mg/dl (70-220); SODIUM 136 mmol/L (135-144); URIC ACID 5.4 mg/dl (3.1-7.9)
[2018-12-07] MEDS: INSULIN ASPART [NOVOLOG] 3 ML PEN SC ×4 (08:00→20:25)
[2018-12-07] MEDS: CLOPIDOGREL 75 MG TAB PO (08:52)
[2018-12-07] MEDS: DOCUSATE SODIUM 100 MG CAP PO (08:52)
[2018-12-07] MEDS: valACYclovir 500 MG TAB PO ×4 (08:52→20:20)
[2018-12-07] MEDS: GABAPENTIN 100 MG CAP PO ×2 (08:53→20:20)
[2018-12-07] MEDS: LINAGLIPTIN 5 MG TABLET PO (08:53)
[2018-12-07] MEDS: FOLIC ACID 1 MG TAB PO (08:53)
[2018-12-07] MEDS: CALCIUM ACETATE 667 MG CAP PO ×3 (08:53→17:50)
[2018-12-07] MEDS: AZITHROMYCIN 500 MG TAB PO (08:53)
[2018-12-07] MEDS: HEPARIN 5,000 UNIT/1 ML VIAL SC ×2 (08:57→20:29)
[2018-12-07] MEDS: METOPROLOL (XL) 50 MG TAB PO (09:00)
[2018-12-07] MEDS: CEFTRIAXONE 1 GM INJ IM (10:57)
[2018-12-07] MEDS: EPOETIN ALFA-EPBX (ESRD) 4,000 UNIT/ML VIAL SC (17:51)
[2018-12-07] MEDS: FLUTICASONE 0.05% 16 GM NAS SPRAY NASAL (18:08)
[2018-12-08] MEDS: ACCU-CHEK XX ×5 (02:00→20:58)
[2018-12-08] MEDS: PANTOPRAZOLE (EC) 40 MG TAB PO (05:28)
[2018-12-08 06:27] LABS: ADD MAN DIFF? NO
[2018-12-08 06:46] LABS: WHITE BLOOD COUNT 7.6 10^3/ul (4.8-10.8)
[2018-12-08 06:46] LABS: BASOPHILS % 0.5 % (0.0-2.0); EOSINOPHILS # 0.1 10^3/ul (0.0-0.5); EOSINOPHILS % 1.6 % (0.0-7.0); HEMATOCRIT 32.9 % (37.0-47.0); HEMOGLOBIN 10.5 g/dl (12.0-16.0); LYMPHOCYTES # 1.1 10^3/ul (0.8-2.9); LYMPHOCYTES % 14.7 % (15.0-51.0); MEAN CORPUSCULAR HEMOGLOBIN 31.3 pg (29.0-33.0); MEAN CORPUSCULAR HGB CONC 31.9 g/dl (32.0-37.0); MEAN CORPUSCULAR VOLUME 97.9 fl (82.0-101.0); MEAN PLATELET VOLUME 10.6 fl (7.4-10.4); MONOCYTE # 1.1 10^3/ul (0.3-0.9); MONOCYTES % 14.9 % (0.0-11.0); NEUTROPHIL # 5.1 10^3/ul (1.6-7.5); NEUTROPHILS % 67.5 % (39.0-77.0); NUCLEATED RED BLOOD CELLS% 0.5 /100WBC (0.0-0.0); PLATELET COUNT 288 10^3/UL (140-415); RED BLOOD COUNT 3.36 10^6/ul (4.20-5.40)
[2018-12-08 07:22] LABS: ANION GAP 11 (5-13); BLOOD UREA NITROGEN 37 mg/dl (7-20); CALCIUM 9.4 mg/dl (8.4-10.2); CARBON DIOXIDE 26 mmol/L (21-31); CHLORIDE 101 mmol/L (97-110); CREATININE 6.87 mg/dl (0.44-1.00); Estimated GFR 6 mL/min (>60); GLUCOSE 123 mg/dl (70-220); SODIUM 138 mmol/L (135-144)
[2018-12-08] MEDS: INSULIN ASPART [NOVOLOG] 3 ML PEN SC ×4 (08:00→20:57)
[2018-12-08] MEDS: valACYclovir 500 MG TAB PO ×3 (08:20→20:57)
[2018-12-08] MEDS: DOCUSATE SODIUM 100 MG CAP PO (08:21)
[2018-12-08] MEDS: METOPROLOL (XL) 50 MG TAB PO (08:21)
[2018-12-08] MEDS: CALCIUM ACETATE 667 MG CAP PO ×3 (08:21→17:38)
[2018-12-08] MEDS: FOLIC ACID 1 MG TAB PO (08:21)
[2018-12-08] MEDS: AZITHROMYCIN 500 MG TAB PO (08:22)
[2018-12-08] MEDS: CLOPIDOGREL 75 MG TAB PO (08:22)
[2018-12-08] MEDS: LINAGLIPTIN 5 MG TABLET PO (08:22)
[2018-12-08] MEDS: GABAPENTIN 100 MG CAP PO ×2 (08:22→20:57)
[2018-12-08] MEDS: FLUTICASONE 0.05% 16 GM NAS SPRAY NASAL (08:23)
[2018-12-08] MEDS: HEPARIN 5,000 UNIT/1 ML VIAL SC ×2 (08:27→21:10)
[2018-12-08 11:03] LABS: ANISOCYTOSIS 2+ (0-0); BAND NEUTROPHILS #M 0.1 10^3/ul (0.0-0.6); BAND NEUTROPHILS % (M) 2 % (0-4); BASOPHIL #M 0.1 10^3/ul (0.0-0.0); BASOPHILS % (M) 2 % (0-2); EOSINOPHILS % (M) 3 % (0-7); ERYTHROBLAST% (NRBC) (M) 1 % (0-0); HYPOCHROMASIA 1+ (0-0); LYMPHOCYTES #M 0.8 10^3/ul (0.8-2.9); LYMPHOCYTES % (M) 11 % (15-51); MONOCYTE #M 0.5 10^3/ul (0.3-0.9); MONOCYTES % (M) 7 % (0-11); PLATELET ESTIMATE NORMAL; POIKILOCYTOSIS 1+ (0-0); POLYCHROMASIA 3+ (0-0); REACTIVE LYMPHOCYTES #M 0.3 10^3/ul (0.0-0.0); REACTIVE LYMPHOCYTES% (M) 5 % (0-0); SEG NEUT #M 5.3 10^3/ul (1.6-7.5); SEGMENTED NEUTROPHILS (M) % 70 % (39-77); SMUDGE%M 5 % (0-0)
[2018-12-08] MEDS: CEFTRIAXONE 1 GM INJ IM (11:38)
[2018-12-09] MEDS: ACCU-CHEK XX ×5 (01:48→21:00)
[2018-12-09 06:11] LABS: ADD MAN DIFF? NO
[2018-12-09 06:22] LABS: WHITE BLOOD COUNT 8.6 10^3/ul (4.8-10.8)
[2018-12-09 06:22] LABS: BASOPHIL # 0.1 10^3/ul (0.0-0.1); BASOPHILS % 0.6 % (0.0-2.0); EOSINOPHILS # 0.2 10^3/ul (0.0-0.5); EOSINOPHILS % 2.4 % (0.0-7.0); HEMATOCRIT 29.6 % (37.0-47.0); HEMOGLOBIN 9.4 g/dl (12.0-16.0); MEAN CORPUSCULAR HEMOGLOBIN 31.1 pg (29.0-33.0); MEAN CORPUSCULAR HGB CONC 31.8 g/dl (32.0-37.0); MEAN PLATELET VOLUME 10.1 fl (7.4-10.4); MONOCYTES % 11.8 % (0.0-11.0); NEUTROPHIL # 6.3 10^3/ul (1.6-7.5); NEUTROPHILS % 72.6 % (39.0-77.0); NUCLEATED RED BLOOD CELLS% 0.5 /100WBC (0.0-0.0); PLATELET COUNT 349 10^3/UL (140-415); RED BLOOD COUNT 3.02 10^6/ul (4.20-5.40); RED CELL DISTRIBUTION WIDTH 17.2 % (11.5-14.5)
[2018-12-09] MEDS: PANTOPRAZOLE (EC) 40 MG TAB PO (06:34)
[2018-12-09 06:59] LABS: ANION GAP 12 (5-13); BLOOD UREA NITROGEN 52 mg/dl (7-20); CALCIUM 9.3 mg/dl (8.4-10.2); CARBON DIOXIDE 27 mmol/L (21-31); CHLORIDE 99 mmol/L (97-110); CREATININE 8.56 mg/dl (0.44-1.00); Estimated GFR 5 mL/min (>60); GLUCOSE 122 mg/dl (70-220); POTASSIUM 5.3 mmol/L (3.5-5.1); SODIUM 138 mmol/L (135-144)
[2018-12-09] MEDS: INSULIN ASPART [NOVOLOG] 3 ML PEN SC ×4 (08:00→20:29)
[2018-12-09] MEDS: METOPROLOL (XL) 50 MG TAB PO (08:34)
[2018-12-09] MEDS: DOCUSATE SODIUM 100 MG CAP PO (08:43)
[2018-12-09] MEDS: CLOPIDOGREL 75 MG TAB PO (08:43)
[2018-12-09] MEDS: CALCIUM ACETATE 667 MG CAP PO ×3 (08:43→18:47)
[2018-12-09] MEDS: LINAGLIPTIN 5 MG TABLET PO (08:44)
[2018-12-09] MEDS: valACYclovir 500 MG TAB PO ×3 (08:44→20:16)
[2018-12-09] MEDS: FOLIC ACID 1 MG TAB PO (08:44)
[2018-12-09] MEDS: GABAPENTIN 100 MG CAP PO ×2 (08:44→20:16)
[2018-12-09] MEDS: AZITHROMYCIN 500 MG TAB PO (08:44)
[2018-12-09] MEDS: HEPARIN 5,000 UNIT/1 ML VIAL SC ×2 (08:50→20:25)
[2018-12-09] MEDS: FLUTICASONE 0.05% 16 GM NAS SPRAY NASAL (08:51)
[2018-12-09] MEDS ORDERED: CEFTRIAXONE 1 GM INJ IVPB (09:00)
[2018-12-09] MEDS: CEFTRIAXONE 1 GM/50 ML (PMX) 50 ML IVPB (13:54)
[2018-12-09 16:48] LABS: ANION GAP 14 (5-13); BLOOD UREA NITROGEN 32 mg/dl (7-20); CALCIUM 9.3 mg/dl (8.4-10.2); CARBON DIOXIDE 25 mmol/L (21-31); CHLORIDE 97 mmol/L (97-110); CREATININE 5.51 mg/dl (0.44-1.00); Estimated GFR 8 mL/min (>60); GLUCOSE 133 mg/dl (70-220); MAGNESIUM 2.1 mg/dl (1.7-2.5); PHOSPHORUS 4.1 mg/dl (2.5-4.9); POTASSIUM 4.8 mmol/L (3.5-5.1); SODIUM 136 mmol/L (135-144)
[2018-12-10] MEDS: ACCU-CHEK XX ×6 (02:00→23:44)
[2018-12-10] MEDS: PANTOPRAZOLE (EC) 40 MG TAB PO (06:00)
[2018-12-10] MEDS: INSULIN ASPART [NOVOLOG] 3 ML PEN SC ×4 (07:46→20:38)
[2018-12-10] MEDS: FLUTICASONE 0.05% 16 GM NAS SPRAY NASAL (09:00)
[2018-12-10] MEDS: CEFTRIAXONE 1 GM/50 ML (PMX) 50 ML IVPB (09:46)
[2018-12-10] MEDS: AZITHROMYCIN 500 MG TAB PO (09:46)
[2018-12-10] MEDS: CLOPIDOGREL 75 MG TAB PO (09:47)
[2018-12-10] MEDS: LINAGLIPTIN 5 MG TABLET PO (09:47)
[2018-12-10] MEDS: CALCIUM ACETATE 667 MG CAP PO ×3 (09:47→17:38)
[2018-12-10] MEDS: GABAPENTIN 100 MG CAP PO ×2 (09:47→20:38)
[2018-12-10] MEDS: FOLIC ACID 1 MG TAB PO (09:47)
[2018-12-10] MEDS: DOCUSATE SODIUM 100 MG CAP PO (09:47)
[2018-12-10] MEDS: valACYclovir 500 MG TAB PO ×3 (09:48→20:38)
[2018-12-10] MEDS: HEPARIN 5,000 UNIT/1 ML VIAL SC ×2 (09:49→20:45)
[2018-12-10] MEDS: METOPROLOL (XL) 50 MG TAB PO (09:51)
[2018-12-10] MEDS: EPOETIN ALFA-EPBX (ESRD) 4,000 UNIT/ML VIAL SC (17:39)
[2018-12-11] MEDS: PANTOPRAZOLE (EC) 40 MG TAB PO (05:21)
[2018-12-11] MEDS: ACCU-CHEK XX ×4 (07:25→20:18)
[2018-12-11] MEDS: CALCIUM ACETATE 667 MG CAP PO ×4 (07:55→17:00)
[2018-12-11] MEDS: INSULIN ASPART [NOVOLOG] 3 ML PEN SC ×4 (07:55→20:33)
[2018-12-11] MEDS: GABAPENTIN 100 MG CAP PO (08:44)
[2018-12-11] MEDS: LINAGLIPTIN 5 MG TABLET PO (08:44)
[2018-12-11] MEDS: METOPROLOL (XL) 50 MG TAB PO (08:44)
[2018-12-11] MEDS: valACYclovir 500 MG TAB PO (08:44)
[2018-12-11] MEDS: FOLIC ACID 1 MG TAB PO (08:44)
[2018-12-11] MEDS: DOCUSATE SODIUM 100 MG CAP PO (08:44)
[2018-12-11] MEDS: CLOPIDOGREL 75 MG TAB PO (08:44)
[2018-12-11] MEDS: FLUTICASONE 0.05% 16 GM NAS SPRAY NASAL (09:00)
[2018-12-11] MEDS: HEPARIN 5,000 UNIT/1 ML VIAL SC ×2 (09:03→20:37)
[2018-12-11 11:32] LABS: AADO2 Arterial 24.5 mmHg (7.0-24.0); Allen Test ACCEPTAB; Arterial Base Excess 2.5 mmol/L (-3.0-3); Arterial Blood Gas Oxygen Sat 98.5 mmHG (95.0-98.0); Arterial COHb 1.1 % (0.0-3.0); Arterial Fraction of Oxyhgb 97.2 % (93.0-99.0); Arterial HCO3 26.5 mmol/L (22.0-26.0); Arterial MetHb 0.2 % (0.0-1.5); Arterial pCO2 38.5 mmhg (35-45); MODE NASAL CANNULA; Site Left Radial
[2018-12-11 11:58] LABS: ADD MAN DIFF? NO
[2018-12-11 12:02] LABS: BASOPHILS % 0.4 % (0.0-2.0); EOSINOPHILS # 0.1 10^3/ul (0.0-0.5); HEMATOCRIT 29.4 % (37.0-47.0); HEMOGLOBIN 9.3 g/dl (12.0-16.0); LYMPHOCYTES % 13.6 % (15.0-51.0); MEAN CORPUSCULAR HEMOGLOBIN 31.6 pg (29.0-33.0); MEAN CORPUSCULAR HGB CONC 31.6 g/dl (32.0-37.0); MEAN PLATELET VOLUME 9.7 fl (7.4-10.4); MONOCYTE # 0.8 10^3/ul (0.3-0.9); MONOCYTES % 10.6 % (0.0-11.0); NEUTROPHIL # 5.6 10^3/ul (1.6-7.5); NEUTROPHILS % 73.7 % (39.0-77.0); NUCLEATED RED BLOOD CELLS # 0.2 10^3/ul (0.0-0.0); PLATELET COUNT 371 10^3/UL (140-415); RED BLOOD COUNT 2.94 10^6/ul (4.20-5.40); RED CELL DISTRIBUTION WIDTH 17.4 % (11.5-14.5)
[2018-12-11 12:02] LABS: WHITE BLOOD COUNT 7.6 10^3/ul (4.8-10.8)
[2018-12-11 12:15] LABS: HEMOGLOBIN A1C 5.7 % (0-5.9)
[2018-12-11 12:21] LABS: AMMONIA < 9 umol/l (9-30)
[2018-12-11 12:21] LABS: ANION GAP 13 (5-13); BLOOD UREA NITROGEN 40 mg/dl (7-20); CALCIUM 9.7 mg/dl (8.4-10.2); CARBON DIOXIDE 26 mmol/L (21-31); CHLORIDE 98 mmol/L (97-110); CHOLESTEROL 171 mg/dl (100-200); CREATINE KINASE 107 IU/L (23-200); CREATININE 6.29 mg/dl (0.44-1.00); Estimated GFR 7 mL/min (>60); GLUCOSE 138 mg/dl (70-220); HDL CHOLESTEROL 42 mg/dl (33-92); LDL CHOLESTEROL,CALCULATED 100 mg/dl; POTASSIUM 4.7 mmol/L (3.5-5.1); SODIUM 137 mmol/L (135-144); TRIGLYCERIDES 145 mg/dl (0-149)
[2018-12-11 12:25] LABS: INR 1.05; PROTIME 13.8 Sec (11.9-14.9); PT RATIO 1.1
[2018-12-11 12:26] LABS: PARTIAL THROMBOPLASTIN TIME 35.9 Sec (23.0-35.0)
[2018-12-11 12:33] LABS: CK INDEX 0.7; CK-MB 0.74 ng/ml (0.0-2.4); TROPONIN-I 0.026 ng/ml (0.000-0.120)
[2018-12-11] MEDS: DEXTROSE 5%-0.45% NACL 1,000 ML IV (17:04)
[2018-12-12] MEDS: hydrALAzine 20 MG INJ IV ×2 (00:47→10:39)
[2018-12-12] MEDS: ACCU-CHEK XX ×5 (02:00→21:00)
[2018-12-12 04:51] LABS: ADD MAN DIFF? NO
[2018-12-12 04:54] LABS: WHITE BLOOD COUNT 7.9 10^3/ul (4.8-10.8)
[2018-12-12 04:54] LABS: BASOPHIL # 0.1 10^3/ul (0.0-0.1); BASOPHILS % 0.6 % (0.0-2.0); EOSINOPHILS # 0.1 10^3/ul (0.0-0.5); EOSINOPHILS % 0.6 % (0.0-7.0); HEMATOCRIT 28.7 % (37.0-47.0); HEMOGLOBIN 9.1 g/dl (12.0-16.0); LYMPHOCYTES # 0.7 10^3/ul (0.8-2.9); LYMPHOCYTES % 9.3 % (15.0-51.0); MEAN CORPUSCULAR HEMOGLOBIN 31.9 pg (29.0-33.0); MEAN CORPUSCULAR HGB CONC 31.7 g/dl (32.0-37.0); MEAN CORPUSCULAR VOLUME 100.7 fl (82.0-101.0); MEAN PLATELET VOLUME 9.8 fl (7.4-10.4); MONOCYTE # 1.1 10^3/ul (0.3-0.9); MONOCYTES % 13.2 % (0.0-11.0); NEUTROPHILS % 75.4 % (39.0-77.0); NUCLEATED RED BLOOD CELLS # 0.1 10^3/ul (0.0-0.0); NUCLEATED RED BLOOD CELLS% 1.8 /100WBC (0.0-0.0); PLATELET COUNT 416 10^3/UL (140-415); RED BLOOD COUNT 2.85 10^6/ul (4.20-5.40)
[2018-12-12 05:10] LABS: ANION GAP 14 (5-13); BLOOD UREA NITROGEN 49 mg/dl (7-20); CALCIUM 9.7 mg/dl (8.4-10.2); CARBON DIOXIDE 26 mmol/L (21-31); CHLORIDE 97 mmol/L (97-110); CREATININE 8.41 mg/dl (0.44-1.00); Estimated GFR 5 mL/min (>60); GLUCOSE 153 mg/dl (70-220); SODIUM 137 mmol/L (135-144)
[2018-12-12 05:11] LABS: MAGNESIUM 2.3 mg/dl (1.7-2.5)
[2018-12-12 05:11] LABS: PHOSPHORUS 5.4 mg/dl (2.5-4.9)
[2018-12-12] MEDS: PANTOPRAZOLE (EC) 40 MG TAB PO (06:00)
[2018-12-12] MEDS: CALCIUM ACETATE 667 MG CAP PO ×3 (07:35→17:35)
[2018-12-12] MEDS: INSULIN ASPART [NOVOLOG] 3 ML PEN SC ×4 (07:56→21:00)
[2018-12-12] MEDS: HEPARIN 5,000 UNIT/1 ML VIAL SC ×2 (09:00→21:23)
[2018-12-12] MEDS: CLOPIDOGREL 75 MG TAB PO (09:00)
[2018-12-12] MEDS: METOPROLOL (XL) 50 MG TAB PO (09:00)
[2018-12-12] MEDS: LINAGLIPTIN 5 MG TABLET PO (09:00)
[2018-12-12] MEDS: FLUTICASONE 0.05% 16 GM NAS SPRAY NASAL (09:00)
[2018-12-12] MEDS: FOLIC ACID 1 MG TAB PO (09:00)
[2018-12-12] MEDS: DOCUSATE SODIUM 100 MG CAP PO (09:00)
[2018-12-12] MEDS ORDERED: VANCOMYCIN IV PER PHARMACY XX (11:00)
[2018-12-12] MEDS: SOD CHLORIDE 0.9% 100 ML (11:49)
[2018-12-12] MEDS: IODIXANOL LOCM 100 ML BTL (11:49)
[2018-12-12 14:04] LABS: CSF RBC 0 /uL (0-0); CSF WBC 5 /cmm (0-10)
[2018-12-12] MEDS: CEFEPIME 1GM/50 ML (PMX) 50 ML IVPB (14:21)
[2018-12-12 14:27] LABS: TOTAL PROTEIN,CSF 32 mg/dl (12-60)
[2018-12-12 14:27] LABS: GLUCOSE,CSF 95 mg/dl (50-80)
[2018-12-12 14:51] LABS: CSF CLARITY CLEAR; CSF#TUBE COUNT TUBE#4; CSF#TUBES REC'D 4
[2018-12-12 14:51] LABS: CSF COLOR COLORLESS
[2018-12-12 14:56] LABS: CSF CLARITY CLEAR; CSF COLOR COLORLESS; CSF WBC 15 /cmm (0-10); CSF#TUBE COUNT TUBE#1; CSF#TUBES REC'D 4
[2018-12-12 15:32] LABS: CSF RBC 0 /uL (0-0)
[2018-12-12] MEDS: DEXTROSE 5%-0.45% NACL 1,000 ML IV (16:30)
[2018-12-12] MEDS: EPOETIN ALFA-EPBX (ESRD) 4,000 UNIT/ML VIAL SC (19:56)
[2018-12-12] MEDS: ACYCLOVIR 500 MG in SOD CHLORIDE 0.9% 100 ML IVPB (19:56)
[2018-12-12] MEDS: DEXTROSE 5% IVPB (20:01)
[2018-12-12] MEDS: ACYCLOVIR IVPB (20:01)
[2018-12-12] MEDS: VANCOMYCIN HCL 1.75 GM in SOD CHLORIDE 0.9% 500 ML IVPB (21:09)
[2018-12-13] MEDS: ACCU-CHEK XX ×5 (02:00→21:00)
[2018-12-13 05:21] LABS: ADD MAN DIFF? NO
[2018-12-13 05:34] LABS: BASOPHILS % 0.4 % (0.0-2.0); EOSINOPHILS % 0.1 % (0.0-7.0); HEMATOCRIT 26.8 % (37.0-47.0); HEMOGLOBIN 8.6 g/dl (12.0-16.0); LYMPHOCYTES # 0.8 10^3/ul (0.8-2.9); LYMPHOCYTES % 11.4 % (15.0-51.0); MEAN CORPUSCULAR HEMOGLOBIN 32.5 pg (29.0-33.0); MEAN CORPUSCULAR HGB CONC 32.1 g/dl (32.0-37.0); MEAN CORPUSCULAR VOLUME 101.1 fl (82.0-101.0); MEAN PLATELET VOLUME 9.9 fl (7.4-10.4); MONOCYTES % 13.8 % (0.0-11.0); NEUTROPHIL # 5.2 10^3/ul (1.6-7.5); NEUTROPHILS % 72.7 % (39.0-77.0); NUCLEATED RED BLOOD CELLS # 0.5 10^3/ul (0.0-0.0); NUCLEATED RED BLOOD CELLS% 6.3 /100WBC (0.0-0.0); PLATELET COUNT 372 10^3/UL (140-415); RED BLOOD COUNT 2.65 10^6/ul (4.20-5.40); RED CELL DISTRIBUTION WIDTH 17.5 % (11.5-14.5)
[2018-12-13 05:34] LABS: WHITE BLOOD COUNT 7.1 10^3/ul (4.8-10.8)
[2018-12-13] MEDS: PANTOPRAZOLE (EC) 40 MG TAB PO (05:46)
[2018-12-13 06:25] LABS: ALANINE AMINOTRANSFERASE 24 IU/L (13-69); ALBUMIN 3.7 g/dl (3.3-4.9); ALBUMIN/GLOBULIN RATIO 0.84; ALKALINE PHOSPHATASE 54 IU/L (42-121); ANION GAP 12 (5-13); ASPARTATE AMINO TRANSFERASE 73 IU/L (15-46); BILIRUBIN,INDIRECT 0.4 mg/dl (0-1.1); BILIRUBIN,TOTAL 0.4 mg/dl (0.2-1.3); BLOOD UREA NITROGEN 35 mg/dl (7-20); CALCIUM 9.4 mg/dl (8.4-10.2); CARBON DIOXIDE 28 mmol/L (21-31); CHLORIDE 101 mmol/L (97-110); CREATININE 5.59 mg/dl (0.44-1.00); Estimated GFR 8 mL/min (>60); GLUCOSE 125 mg/dl (70-220); POTASSIUM 4.6 mmol/L (3.5-5.1); SODIUM 141 mmol/L (135-144); TOTAL PROTEIN 8.1 g/dl (6.1-8.1)
[2018-12-13 06:34] LABS: MAGNESIUM 2.2 mg/dl (1.7-2.5)
[2018-12-13 06:34] LABS: PHOSPHORUS 5.3 mg/dl (2.5-4.9)
[2018-12-13] MEDS: CALCIUM ACETATE 667 MG CAP PO ×3 (07:35→17:35)
[2018-12-13] MEDS: CEFEPIME 1GM/50 ML (PMX) 50 ML IVPB (08:55)
[2018-12-13] MEDS: LINAGLIPTIN 5 MG TABLET PO (09:00)
[2018-12-13] MEDS: METOPROLOL (XL) 50 MG TAB PO (09:00)
[2018-12-13] MEDS: FOLIC ACID 1 MG TAB PO (09:00)
[2018-12-13] MEDS: CLOPIDOGREL 75 MG TAB PO (09:00)
[2018-12-13] MEDS: DOCUSATE SODIUM 100 MG CAP PO (09:00)
[2018-12-13] MEDS: INSULIN ASPART [NOVOLOG] 3 ML PEN SC ×4 (09:07→21:00)
[2018-12-13] MEDS: HEPARIN 5,000 UNIT/1 ML VIAL SC ×2 (10:10→21:01)
[2018-12-13 10:19] LABS: ANION GAP 12 (5-13); BLOOD UREA NITROGEN 39 mg/dl (7-20); CALCIUM 9.3 mg/dl (8.4-10.2); CARBON DIOXIDE 28 mmol/L (21-31); CHLORIDE 101 mmol/L (97-110); CREATININE 6.15 mg/dl (0.44-1.00); Estimated GFR 7 mL/min (>60); GLUCOSE 118 mg/dl (70-220); POTASSIUM 4.4 mmol/L (3.5-5.1); SODIUM 141 mmol/L (135-144)
[2018-12-13] MEDS: FLUTICASONE 0.05% 16 GM NAS SPRAY NASAL (15:28)
[2018-12-13] MEDS: DEXTROSE 5%-0.45% NACL 1,000 ML IV (16:30)
[2018-12-13] MEDS: DEXTROSE 5% IVPB (18:18)
[2018-12-13] MEDS: ACYCLOVIR IVPB (18:18)
[2018-12-14] MEDS: ACCU-CHEK XX ×5 (01:50→21:00)
[2018-12-14] MEDS: PANTOPRAZOLE (EC) 40 MG TAB PO (05:43)
[2018-12-14 06:39] LABS: WHITE BLOOD COUNT 6.8 10^3/ul (4.8-10.8)
[2018-12-14 06:39] LABS: HEMATOCRIT 27.1 % (37.0-47.0); HEMOGLOBIN 8.4 g/dl (12.0-16.0); MEAN CORPUSCULAR HEMOGLOBIN 31.8 pg (29.0-33.0); MEAN CORPUSCULAR VOLUME 102.7 fl (82.0-101.0); NUCLEATED RED BLOOD CELLS% 6.8 /100WBC (0.0-0.0); PLATELET COUNT 350 10^3/UL (140-415); RED BLOOD COUNT 2.64 10^6/ul (4.20-5.40); RED CELL DISTRIBUTION WIDTH 18.3 % (11.5-14.5)
[2018-12-14 06:46] LABS: ADD MAN DIFF? YES
[2018-12-14 07:12] LABS: VANCOMYCIN,RANDOM 18.7 ug/ml
[2018-12-14 07:14] LABS: ANION GAP 13 (5-13); BLOOD UREA NITROGEN 58 mg/dl (7-20); CALCIUM 9.2 mg/dl (8.4-10.2); CARBON DIOXIDE 26 mmol/L (21-31); CHLORIDE 100 mmol/L (97-110); CREATININE 7.56 mg/dl (0.44-1.00); Estimated GFR 5 mL/min (>60); GLUCOSE 169 mg/dl (70-220); POTASSIUM 4.4 mmol/L (3.5-5.1); SODIUM 139 mmol/L (135-144)
[2018-12-14 07:40] LABS: MAGNESIUM 2.5 mg/dl (1.7-2.5)
[2018-12-14 07:40] LABS: PHOSPHORUS 5.6 mg/dl (2.5-4.9)
[2018-12-14] MEDS: METOPROLOL (XL) 50 MG TAB PO (08:43)
[2018-12-14] MEDS: CEFEPIME 1GM/50 ML (PMX) 50 ML IVPB (08:52)
[2018-12-14] MEDS: FOLIC ACID 1 MG TAB PO (08:53)
[2018-12-14] MEDS: CALCIUM ACETATE 667 MG CAP PO ×3 (08:53→17:35)
[2018-12-14] MEDS: CLOPIDOGREL 75 MG TAB PO (08:53)
[2018-12-14] MEDS: FLUTICASONE 0.05% 16 GM NAS SPRAY NASAL (08:54)
[2018-12-14] MEDS: LINAGLIPTIN 5 MG TABLET PO (08:57)
[2018-12-14] MEDS: DOCUSATE SODIUM 100 MG CAP PO (09:00)
[2018-12-14] MEDS: INSULIN ASPART [NOVOLOG] 3 ML PEN SC ×4 (09:08→21:00)
[2018-12-14] MEDS: HEPARIN 5,000 UNIT/1 ML VIAL SC ×2 (09:08→21:21)
[2018-12-14 11:29] LABS: ANISOCYTOSIS 2+ (0-0); EOSINOPHILS % (M) 1 % (0-7); ERYTHROBLAST% (NRBC) (M) 12 % (0-0); LYMPHOCYTES #M 0.5 10^3/ul (0.8-2.9); LYMPHOCYTES % (M) 8 % (15-51); MONOCYTE #M 1.2 10^3/ul (0.3-0.9); MONOCYTES % (M) 18 % (0-11); PLATELET ESTIMATE NORMAL; PLATELET MORPHOLOGY COMMENT @See below; POLYCHROMASIA 2+ (0-0); RBC MORPHOLOGY COMMENT @See below; SEGMENTED NEUTROPHILS (M) % 73 % (39-77); SMUDGE%M 3 % (0-0); WBC MORPHOLOGY COMMENT @See below
[2018-12-14] MEDS: DEXTROSE 5%-0.45% NACL 1,000 ML IV (15:20)
[2018-12-14] MEDS: DEXTROSE 5% IVPB (20:58)
[2018-12-14] MEDS: ACYCLOVIR IVPB (20:58)
[2018-12-14] MEDS: EPOETIN ALFA-EPBX (ESRD) 4,000 UNIT/ML VIAL SC (21:02)
[2018-12-14] MEDS: VANCOMYCIN 1 GM 250 ML IVPB (22:49)
[2018-12-15] MEDS: ACCU-CHEK XX ×5 (02:00→21:29)
[2018-12-15 05:16] LABS: ADD MAN DIFF? NO
[2018-12-15 05:23] LABS: WHITE BLOOD COUNT 7.5 10^3/ul (4.8-10.8)
[2018-12-15 05:23] LABS: ABNORMAL IP MESSAGE 1; BASOPHILS % 0.4 % (0.0-2.0); EOSINOPHILS # 0.1 10^3/ul (0.0-0.5); EOSINOPHILS % 0.9 % (0.0-7.0); HEMATOCRIT 25.9 % (37.0-47.0); HEMOGLOBIN 8.3 g/dl (12.0-16.0); LYMPHOCYTES # 0.6 10^3/ul (0.8-2.9); LYMPHOCYTES % 7.6 % (15.0-51.0); MEAN CORPUSCULAR HEMOGLOBIN 32.7 pg (29.0-33.0); MEAN PLATELET VOLUME 10.1 fl (7.4-10.4); MONOCYTE # 1.3 10^3/ul (0.3-0.9); MONOCYTES % 16.8 % (0.0-11.0); NEUTROPHIL # 5.3 10^3/ul (1.6-7.5); NEUTROPHILS % 70.7 % (39.0-77.0); NUCLEATED RED BLOOD CELLS # 0.3 10^3/ul (0.0-0.0); NUCLEATED RED BLOOD CELLS% 4.5 /100WBC (0.0-0.0); PLATELET COUNT 339 10^3/UL (140-415); RED BLOOD COUNT 2.54 10^6/ul (4.20-5.40); RED CELL DISTRIBUTION WIDTH 18.7 % (11.5-14.5)
[2018-12-15 05:24] LABS: POSITIVE DIFF @See below
[2018-12-15 05:57] LABS: MAGNESIUM 2.3 mg/dl (1.7-2.5)
[2018-12-15 06:04] LABS: ANION GAP 10 (5-13); BLOOD UREA NITROGEN 34 mg/dl (7-20); CALCIUM 9.1 mg/dl (8.4-10.2); CARBON DIOXIDE 28 mmol/L (21-31); CHLORIDE 101 mmol/L (97-110); CREATININE 5.04 mg/dl (0.44-1.00); Estimated GFR 9 mL/min (>60); GLUCOSE 171 mg/dl (70-220); SODIUM 139 mmol/L (135-144)
[2018-12-15] MEDS: PANTOPRAZOLE (EC) 40 MG TAB PO (06:16)
[2018-12-15] MEDS: INSULIN ASPART [NOVOLOG] 3 ML PEN SC ×4 (07:35→21:00)
[2018-12-15] MEDS: CALCIUM ACETATE 667 MG CAP PO ×3 (07:35→16:34)
[2018-12-15] MEDS: FLUTICASONE 0.05% 16 GM NAS SPRAY NASAL (08:23)
[2018-12-15] MEDS: METOPROLOL (XL) 50 MG TAB PO ×2 (08:23→16:51)
[2018-12-15] MEDS: DOCUSATE SODIUM 100 MG CAP PO (08:23)
[2018-12-15] MEDS: CEFEPIME 1GM/50 ML (PMX) 50 ML IVPB (08:40)
[2018-12-15] MEDS: CLOPIDOGREL 75 MG TAB PO (08:40)
[2018-12-15] MEDS: FOLIC ACID 1 MG TAB PO (08:42)
[2018-12-15] MEDS: LINAGLIPTIN 5 MG TABLET PO (08:43)
[2018-12-15] MEDS: HEPARIN 5,000 UNIT/1 ML VIAL SC ×2 (09:10→21:27)
[2018-12-15] MEDS: DEXTROSE 5% IVPB (16:51)
[2018-12-15] MEDS: ACYCLOVIR IVPB (16:51)
[2018-12-16] MEDS: ACCU-CHEK XX ×5 (01:08→21:57)
[2018-12-16] MEDS: hydrALAzine 20 MG INJ IV ×3 (02:14→18:12)
[2018-12-16] MEDS: PANTOPRAZOLE (EC) 40 MG TAB PO (05:06)
[2018-12-16 05:27] LABS: ADD MAN DIFF? NO
[2018-12-16 05:32] LABS: WHITE BLOOD COUNT 6.2 10^3/ul (4.8-10.8)
[2018-12-16 05:32] LABS: ABNORMAL IP MESSAGE 1; BASOPHIL # 0.1 10^3/ul (0.0-0.1); BASOPHILS % 0.8 % (0.0-2.0); EOSINOPHILS # 0.1 10^3/ul (0.0-0.5); EOSINOPHILS % 1.5 % (0.0-7.0); HEMATOCRIT 30.8 % (37.0-47.0); HEMOGLOBIN 9.7 g/dl (12.0-16.0); LYMPHOCYTES # 0.6 10^3/ul (0.8-2.9); LYMPHOCYTES % 9.1 % (15.0-51.0); MEAN CORPUSCULAR HGB CONC 31.5 g/dl (32.0-37.0); MEAN CORPUSCULAR VOLUME 104.8 fl (82.0-101.0); MEAN PLATELET VOLUME 9.9 fl (7.4-10.4); MONOCYTE # 1.2 10^3/ul (0.3-0.9); MONOCYTES % 19.1 % (0.0-11.0); NEUTROPHIL # 4.1 10^3/ul (1.6-7.5); NEUTROPHILS % 66.7 % (39.0-77.0); NUCLEATED RED BLOOD CELLS # 0.2 10^3/ul (0.0-0.0); NUCLEATED RED BLOOD CELLS% 3.9 /100WBC (0.0-0.0); PLATELET COUNT 334 10^3/UL (140-415); RED BLOOD COUNT 2.94 10^6/ul (4.20-5.40); RED CELL DISTRIBUTION WIDTH 20.2 % (11.5-14.5)
[2018-12-16 05:39] LABS: POSITIVE DIFF @See below
[2018-12-16 06:04] LABS: ANION GAP 14 (5-13); BLOOD UREA NITROGEN 54 mg/dl (7-20); CALCIUM 9.7 mg/dl (8.4-10.2); CARBON DIOXIDE 22 mmol/L (21-31); CHLORIDE 104 mmol/L (97-110); CREATININE 6.71 mg/dl (0.44-1.00); Estimated GFR 6 mL/min (>60); GLUCOSE 124 mg/dl (70-220); POTASSIUM 4.7 mmol/L (3.5-5.1); SODIUM 140 mmol/L (135-144)
[2018-12-16] MEDS: INSULIN ASPART [NOVOLOG] 3 ML PEN SC ×4 (07:35→21:00)
[2018-12-16] MEDS: CALCIUM ACETATE 667 MG CAP PO ×3 (08:04→18:57)
[2018-12-16] MEDS: CEFEPIME 1GM/50 ML (PMX) 50 ML IVPB (08:13)
[2018-12-16] MEDS: FOLIC ACID 1 MG TAB PO (08:13)
[2018-12-16] MEDS: CLOPIDOGREL 75 MG TAB PO (08:14)
[2018-12-16] MEDS: DOCUSATE SODIUM 100 MG CAP PO (08:14)
[2018-12-16] MEDS: LINAGLIPTIN 5 MG TABLET PO (08:15)
[2018-12-16] MEDS: METOPROLOL (XL) 50 MG TAB PO (08:16)
[2018-12-16] MEDS: FLUTICASONE 0.05% 16 GM NAS SPRAY NASAL (08:43)
[2018-12-16] MEDS: HEPARIN 5,000 UNIT/1 ML VIAL SC ×2 (09:10→21:54)
[2018-12-16] MEDS: ACYCLOVIR IVPB (18:53)
[2018-12-16] MEDS: DEXTROSE 5% IVPB (18:53)
[2018-12-17] MEDS: ACCU-CHEK XX ×5 (02:00→21:14)
[2018-12-17 05:47] LABS: ADD MAN DIFF? NO
[2018-12-17 06:08] LABS: ABNORMAL IP MESSAGE 1; BASOPHILS % 0.3 % (0.0-2.0); EOSINOPHILS # 0.1 10^3/ul (0.0-0.5); EOSINOPHILS % 0.8 % (0.0-7.0); HEMATOCRIT 27.3 % (37.0-47.0); HEMOGLOBIN 8.8 g/dl (12.0-16.0); LYMPHOCYTES # 0.5 10^3/ul (0.8-2.9); LYMPHOCYTES % 8.6 % (15.0-51.0); MEAN CORPUSCULAR HEMOGLOBIN 33.5 pg (29.0-33.0); MEAN CORPUSCULAR HGB CONC 32.2 g/dl (32.0-37.0); MEAN CORPUSCULAR VOLUME 103.8 fl (82.0-101.0); MEAN PLATELET VOLUME 10.1 fl (7.4-10.4); MONOCYTE # 1.3 10^3/ul (0.3-0.9); MONOCYTES % 21.2 % (0.0-11.0); NEUTROPHILS % 67.2 % (39.0-77.0); NUCLEATED RED BLOOD CELLS # 0.2 10^3/ul (0.0-0.0); PLATELET COUNT 308 10^3/UL (140-415); RED BLOOD COUNT 2.63 10^6/ul (4.20-5.40); RED CELL DISTRIBUTION WIDTH 20.8 % (11.5-14.5)
[2018-12-17 06:08] LABS: WHITE BLOOD COUNT 5.9 10^3/ul (4.8-10.8)
[2018-12-17 06:11] LABS: POSITIVE DIFF @See below
[2018-12-17] MEDS: PANTOPRAZOLE (EC) 40 MG TAB PO (06:11)
[2018-12-17 06:21] LABS: ANION GAP 11 (5-13); BLOOD UREA NITROGEN 34 mg/dl (7-20); CARBON DIOXIDE 28 mmol/L (21-31); CHLORIDE 100 mmol/L (97-110); CREATININE 4.47 mg/dl (0.44-1.00); Estimated GFR 10 mL/min (>60); GLUCOSE 123 mg/dl (70-220); POTASSIUM 4.4 mmol/L (3.5-5.1); SODIUM 139 mmol/L (135-144)
[2018-12-17 06:34] LABS: PHOSPHORUS 3.1 mg/dl (2.5-4.9)
[2018-12-17 06:34] LABS: MAGNESIUM 2.2 mg/dl (1.7-2.5)
[2018-12-17] MEDS: INSULIN ASPART [NOVOLOG] 3 ML PEN SC ×4 (08:00→20:42)
[2018-12-17] MEDS: CALCIUM ACETATE 667 MG CAP PO ×3 (08:42→17:24)
[2018-12-17] MEDS: FOLIC ACID 1 MG TAB PO (08:43)
[2018-12-17] MEDS: METOPROLOL (XL) 50 MG TAB PO (08:43)
[2018-12-17] MEDS: LINAGLIPTIN 5 MG TABLET PO (08:43)
[2018-12-17] MEDS: CLOPIDOGREL 75 MG TAB PO (08:43)
[2018-12-17] MEDS: DOCUSATE SODIUM 100 MG CAP PO (08:43)
[2018-12-17] MEDS: FLUTICASONE 0.05% 16 GM NAS SPRAY NASAL (08:44)
[2018-12-17] MEDS: HEPARIN 5,000 UNIT/1 ML VIAL SC ×2 (09:00→21:13)
[2018-12-17] MEDS: EPOETIN ALFA-EPBX (ESRD) 4,000 UNIT/ML VIAL SC (17:38)
[2018-12-18] MEDS: ACCU-CHEK XX ×5 (02:00→21:00)
[2018-12-18 05:02] LABS: HERPES SIMPLEX 1 DNA NOT DETECTED; HERPES SIMPLEX 2 DNA NOT DETECTED; HERPES SIMPLEX PCR SOURCE CEREBROSPINAL FLUID
[2018-12-18] MEDS: PANTOPRAZOLE (EC) 40 MG TAB PO (05:53)
[2018-12-18 06:41] LABS: ANION GAP 15 (5-13); BLOOD UREA NITROGEN 55 mg/dl (7-20); CALCIUM 10.3 mg/dl (8.4-10.2); CARBON DIOXIDE 25 mmol/L (21-31); CHLORIDE 99 mmol/L (97-110); CREATININE 6.59 mg/dl (0.44-1.00); Estimated GFR 6 mL/min (>60); GLUCOSE 110 mg/dl (70-220); POTASSIUM 4.7 mmol/L (3.5-5.1); SODIUM 139 mmol/L (135-144)
[2018-12-18] MEDS: INSULIN ASPART [NOVOLOG] 3 ML PEN SC ×4 (07:50→21:00)
[2018-12-18] MEDS: FLUTICASONE 0.05% 16 GM NAS SPRAY NASAL (09:41)
[2018-12-18] MEDS: LINAGLIPTIN 5 MG TABLET PO (09:42)
[2018-12-18] MEDS: CALCIUM ACETATE 667 MG CAP PO ×2 (09:42→11:43)
[2018-12-18] MEDS: CLOPIDOGREL 75 MG TAB PO (09:42)
[2018-12-18] MEDS: FOLIC ACID 1 MG TAB PO (09:42)
[2018-12-18] MEDS: DOCUSATE SODIUM 100 MG CAP PO (09:42)
[2018-12-18] MEDS: METOPROLOL (XL) 50 MG TAB PO (09:43)
[2018-12-18] MEDS: HEPARIN 5,000 UNIT/1 ML VIAL SC ×2 (09:45→21:23)
[2018-12-19] MEDS: ACCU-CHEK XX ×5 (02:00→21:00)
[2018-12-19 05:27] LABS: ADD MAN DIFF? NO
[2018-12-19 05:32] LABS: ABNORMAL IP MESSAGE 1; BASOPHILS % 0.5 % (0.0-2.0); EOSINOPHILS % 0.3 % (0.0-7.0); HEMATOCRIT 28.4 % (37.0-47.0); HEMOGLOBIN 8.8 g/dl (12.0-16.0); LYMPHOCYTES # 0.4 10^3/ul (0.8-2.9); LYMPHOCYTES % 7.1 % (15.0-51.0); MEAN CORPUSCULAR VOLUME 106.4 fl (82.0-101.0); MEAN PLATELET VOLUME 10.5 fl (7.4-10.4); MONOCYTE # 1.4 10^3/ul (0.3-0.9); MONOCYTES % 23.2 % (0.0-11.0); NEUTROPHIL # 4.1 10^3/ul (1.6-7.5); NEUTROPHILS % 67.7 % (39.0-77.0); NUCLEATED RED BLOOD CELLS # 0.1 10^3/ul (0.0-0.0); NUCLEATED RED BLOOD CELLS% 1.2 /100WBC (0.0-0.0); PLATELET COUNT 300 10^3/UL (140-415); RED BLOOD COUNT 2.67 10^6/ul (4.20-5.40); RED CELL DISTRIBUTION WIDTH 22.2 % (11.5-14.5)
[2018-12-19 05:36] LABS: POSITIVE DIFF @See below
[2018-12-19] MEDS: PANTOPRAZOLE (EC) 40 MG TAB PO (05:54)
[2018-12-19 06:16] LABS: ANION GAP 13 (5-13); BLOOD UREA NITROGEN 38 mg/dl (7-20); CARBON DIOXIDE 28 mmol/L (21-31); CHLORIDE 97 mmol/L (97-110); CREATININE 5.11 mg/dl (0.44-1.00); Estimated GFR 8 mL/min (>60); GLUCOSE 104 mg/dl (70-220); POTASSIUM 4.2 mmol/L (3.5-5.1); SODIUM 138 mmol/L (135-144)
[2018-12-19] MEDS: INSULIN ASPART [NOVOLOG] 3 ML PEN SC ×4 (07:32→21:00)
[2018-12-19] MEDS: FLUTICASONE 0.05% 16 GM NAS SPRAY NASAL (08:16)
[2018-12-19] MEDS: DOCUSATE SODIUM 100 MG CAP PO (08:17)
[2018-12-19] MEDS: CLOPIDOGREL 75 MG TAB PO (08:17)
[2018-12-19] MEDS: FOLIC ACID 1 MG TAB PO (08:18)
[2018-12-19] MEDS: METOPROLOL (XL) 50 MG TAB PO (08:18)
[2018-12-19] MEDS: LINAGLIPTIN 5 MG TABLET PO (08:18)
[2018-12-19] MEDS: HEPARIN 5,000 UNIT/1 ML VIAL SC ×2 (08:26→23:09)
[2018-12-19] MEDS: EPOETIN ALFA-EPBX (ESRD) 4,000 UNIT/ML VIAL SC (17:47)
[2018-12-20] MEDS: ACCU-CHEK XX (02:00)
[2018-12-20] MEDS: PANTOPRAZOLE (EC) 40 MG TAB PO (06:23)
== END 2018-12-20 08:05 | DRG 865 ==
LOC: ICU 12-11 17:59 → 6WM 12-16 18:40 → E/R 23:27 → TEL 12-09 17:17 → 2NE 12-06 18:18 → TEL 12-05 03:02
PROVIDERS: Internal Medicine Nephrology
PROC: 5A1D70Z Performance of Urinary Filtration, Intermittent, Less than 6 Hours Per Day (ICD-10-PCS; 2018-12-05)
PROC: 009U3ZX Drainage of Spinal Canal, Percutaneous Approach, Diagnostic (ICD-10-PCS; principal; 2018-12-12)
PROC: B01BZZZ Fluoroscopy of Spinal Cord (ICD-10-PCS; 2018-12-12)
DX: B02.8 Zoster with other complications (principal); J18.9 Pneumonia, unspecified organism; N18.6 End stage renal disease; G92 Toxic encephalopathy; G03.0 Nonpyogenic meningitis; I13.0 Hypertensive heart and chronic kidney disease with heart failure and stage 1 through stage 4 chronic kidney disease, or unspecified chronic kidney disease; G93.40 Encephalopathy, unspecified; I44.2 Atrioventricular block, complete; B19.10 Unspecified viral hepatitis B without hepatic coma; E11.22 Type 2 diabetes mellitus with diabetic chronic kidney disease; I50.9 Heart failure, unspecified; Z99.2 Dependence on renal dialysis; R60.9 Edema, unspecified; E78.5 Hyperlipidemia, unspecified; I25.10 Atherosclerotic heart disease of native coronary artery without angina pectoris; Z68.29 Body mass index [BMI] 29.0-29.9, adult; D72.829 Elevated white blood cell count, unspecified; Z95.0 Presence of cardiac pacemaker; Z85.43 Personal history of malignant neoplasm of ovary; Z90.710 Acquired absence of both cervix and uterus; E78.00 Pure hypercholesterolemia, unspecified; D63.1 Anemia in chronic kidney disease; E66.01 Morbid (severe) obesity due to excess calories; I49.3 Ventricular premature depolarization; T42.6X5A Adverse effect of other antiepileptic and sedative-hypnotic drugs, initial encounter; Y92.239 Unspecified place in hospital as the place of occurrence of the external cause; T37.5X5A Adverse effect of antiviral drugs, initial encounter; J32.9 Chronic sinusitis, unspecified; M79.2 Neuralgia and neuritis, unspecified
CPT/HCPCS: 36415; 36600; 70450; 70486; 70496; 70498; 71045; 71250; 74018; 80048; 80053; 80061; 80202; 80307; 82140; 82550; 82553; 82803; 82945; 82962; 83036; 83605; 83735; 84100; 84157; 84484; 84560; 85025; 85610; 85730; 86706; 87040-91; 87070; 87081; 87273; 87274; 87340; 87529; 89051; 90935; 92526; 92610; 93005; 93931; 93971; 95819; 97110; 97116; 97161; 97164; 97530; 99285-25